=== PATIENT | male | born 1940 | race Caucasian/White ===

== ENCOUNTER → 2019-03-11 17:03 | Outpatient (CLI) | payer MEDICARE, OTHER, SELFPAY ==
--- NOTE | 2019-03-11 17:16 | XR_ITS ---
EXAM: XR thoracic spine 3V HISTORY: Back pain ITS.REASON: BACK PAIN Comparison: 01/06/2008 FINDINGS: Normal alignment. There is mild degenerative disc disease in the lower thoracic spine with small anterior osteophytes. There is degenerative disc disease in cervical spine at C4-C5. There is question of wedge compression changes of the T2. This however is not L demonstrated obscured from the overlying scapula and ribs. IMPRESSION: Questionable wedge compression changes of T2. CT or MRI may confirm Degenerative changes lower thoracic spine and cervical spine
--- NOTE | 2019-03-11 17:16 | XR_ITS ---
EXAM: XR lumbar spine min 4V HISTORY: Low back pain ITS.REASON: BACK PAIN ORDERING PHYSICIAN: Israel Perry MD PATIENT AGE: 79 years COMPARISON: None FINDINGS: Normal alignment. No fracture or dislocation. No lytic or blastic change. There is degenerative disc disease at L3-L4. Mild facet arthritic changes are present at L4-L5 and L5-S1. There is calcification and tortuosity of the abdominal aorta with mild dilatation of lower abdominal aorta. IMPRESSION: Degenerative changes lumbar spine with degenerative disc disease at L3-L4 and facet arthritic change
== END ==
PROVIDERS: PCP Family Medicine; Visit Provider Family Medicine
DX: M54.5 Low back pain (principal); M54.6 Pain in thoracic spine
CPT/HCPCS: 72072; 72110

== ENCOUNTER 2019-04-03 09:00 | Outpatient (RCR) | payer MEDICARE, OTHER, SELFPAY ==
--- NOTE | 2019-03-20 11:42 | HMH.PTOPEV ---
PT Outpatient Evaluation Rehab PT Outpatient Evaluation Start: 03/20/19 09:57 Freq: Status: Active Protocol: Document 03/20/19 10:59 PDESEROUX (Rec: 03/20/19 11:41 [email or web address] [id number]) Electronically Signed By Jake Linder, PT 03/20/19 10:59 Outpatient Therapy Subjective History Subjective History Pt. is a 79 year old male who presents to outpatient PT for complaints of chronic thoracic/lumbar pain of insidious onset since 2017 that has progressively gotten worse. Pt . denies BLE pain, but does report a giving out symptom in each leg while walking. Recent diagnostic imaging positive for thoracic/lumbar DDD and a questionable wedge compression at T2. Pt. denies having any injections for current pathology. PMH includes open heart surgery in 1999, cardiac angioplasty, and HTN. Current medications include Atenolol, Isosorbide, Pravastatin, Hydrochlorot, Clopidogrel, Lisinopril, and Aspirin. Chief Complaint Pain,Gives out/Unstable Symptom Type Other Symptoms Relieved By Rest/Positioning Symptoms Aggravated By Standing,Bending/Stooping, Physical Activity,Twisting, Walking,Lifting Prior Functional Limitations None Current Functional Limitations Lifting,Housework,Dressing, Driving,Standing,Sitting, Squatting,Recreation Activity, Walking,Stairs,Balance,Bending /Stooping Symptom Description Constant and Continuous Level of pain today (0-10) 10 Pain scale - at its best (0-10) 2 Pain scale - at its worst (0-10) 10 Lumbopelvic Eval Posture Thoracic Spine Posture Standing Position Increased Kyphosis Lumbar Spine Posture Standing Position Flattened Assistive device Assistive Devices None / NA Gait Observation General Gait Pattern Observation Antalgic Gait,Wide Based Gait Palapation tenderness bilateral thoracic spinal tenderness Yes lumbar spinal tenderness Yes paraspinal tenderness Yes buttock tenderness Yes Lumbar/Sacral Palpation Findings
== END 2019-04-29 09:35 | disposition home or self-care (01) ==
LOC: PT.CARL 09:00
PROVIDERS: Visit Provider Family Medicine
DX: M54.5 Low back pain (principal)
CPT/HCPCS: 97014; 97035; 97110; 97163; G0283

== ENCOUNTER → 2020-06-08 15:24 | Outpatient (CLI) | payer MEDICARE, OTHER, SELFPAY ==
--- NOTE | 2020-06-08 15:48 | ECG_ITS ---
APPROVED REPORT Exam: Resting ECG HR:52 bpm ECG Measurements Heart Rate 52 AXES HI 170 P 35 QRSd 74 QRS 49 QT 456 T -63 QTc 424 <Conclusion> Sinus bradycardia ST & T wave abnormality, consider inferior ischemia Abnormal ECG Electronically signed by : Magdaleno Diehl, 06/13/2020 21:23:03
[2020-06-08 19:13] LABS: Anion Gap 13.3 mEq/L (5-15); Blood Urea Nitrogen 24 mg/dl (9-20); Calcium 9.3 mg/dl (8.4-10.2); Carbon Dioxide 26 mmol/L (22.0-30.0); Chloride 101 mmol/L (98-107); Estimated Glomerular Filt Rate 45 ml/min (>60); GFR (African American) 54 ML/MIN (>60); Glucose 85 mg/dl (74-100); Potassium 5.3 mmoL/L (3.5-5.1); Sodium 135 mmol/L (136-145)
[2020-06-08 21:47] LABS: Coronavirus 19 IgG Antibody Negative (Negative); Coronavirus 19 IgM Antibody Negative (Negative)
== END ==
PROVIDERS: Visit Provider Otolaryngology
DX: Z01.818 Encounter for other preprocedural examination (principal); L98.9 Disorder of the skin and subcutaneous tissue, unspecified
CPT/HCPCS: 36415; 80048; 86328; 93005

== ENCOUNTER 2020-06-10 08:15 | Day surgery (SDC) | payer MEDICARE, OTHER, SELFPAY ==
[2020-06-09 14:32] VITALS: BMI 25.4
[2020-06-10 08:34] VITALS: BP 141/69; PULSE 94; RESP 18; TEMP 36.1; O2SAT 100
--- NOTE | 2020-06-10 09:43 | P.PN_ITS ---
[facility] Anesthesia Checklist - Structural Data Admitted From: Home Planned Operative Procedure/s: excision neoplasm l congregation Consent for Planned Operative Procedure(s) Verified: Yes - Additional verifications Anesthesia Reactions: No Hx Blood Transfusions: No Blood Transfusion Reaction: No - Airway Assessment C-Spine Mobility Assessed: Yes TMJ Mobility Assessed: Yes Dentition: Good Dentition - Neurological Assessment Level of Consciousness: Awake, Alert, Appropriate - Anesthesia Plan Anesthesia Risk discussed: Yes Anesthesia Plan: Verified ASA Class: III Anesthesia Type: MAC [facility] History I have reviewed the patient's past medical history: Yes Medical History: Denies:: Cancer, Diabetes Mellitus Type 1, Diabetes Mellitus Type 2, Internal Pacemaker, MRSA, Seizures *Have you ever received a pneumonia vaccine?: No *Have you received a flu vaccine this season?: No Other Medical History: Denies: Blood Transfusion Reaction Anesthesia experience/problems:: none Other Surgeries: Yes: Open Heart Surgery. No: Pacemaker Amputation: No Fractures: No - *Social History Last grade of school completed: 11th or 12th Smoking Status: Current every day smoker Tobacco Type: cigarettes # Packs/Day (cigarettes): 1 Alcohol Intake: current Alcohol Intake Frequency:: a few times a week Substance Use Type: denies use *Occupational Status:: employed Housing: house Household Members: spouse *Travel in the last 8 weeks: None Family Hx:: No significant family history
[2020-06-10 10:00] VITALS: BP 137/63; PULSE 60; RESP 20; TEMP 36.5; O2SAT 96
[2020-06-10 10:15] VITALS: BP 132/65; PULSE 56; RESP 20; TEMP 36.5; O2SAT 97
[2020-06-10 10:30] VITALS: BP 132/66; PULSE 55; RESP 20; TEMP 36.5; O2SAT 96
[2020-06-10 10:35] VITALS: BP 130/81; PULSE 58; RESP 20; TEMP 36.5; O2SAT 95
--- NOTE | 2020-06-10 13:01 | HMH.OPNOTE ---
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 Bleeding was stopped with bipolar cautery blood loss was less than 10 cc. Superior and inferior incisions were made and a tissue rearrangement geometric plastic repair was done with interrupted 4-0 nylon sutures a Dermabond dressing was applied. Patient tolerated the procedure well and was sent to recovery in good general condition. Condition: stable Disposition: PACU Complications:: None
== END 2020-06-10 10:35 | disposition home or self-care (01) ==
LOC: OR 08:17
PROVIDERS: PCP Family Medicine; Visit Provider Otolaryngology
PROC: (CPT 14040; principal; 2020-06-10 10:00)
DX: C44.329 Squamous cell carcinoma of skin of other parts of face; I51.9 Heart disease, unspecified; Z95.818 Presence of other cardiac implants and grafts; Z72.0 Tobacco use; Z79.82 Long term (current) use of aspirin; Z79.899 Other long term (current) drug therapy
CPT/HCPCS: 14040; 88305; 96374

== ENCOUNTER → 2022-01-10 08:02 | Outpatient (CLI) | payer MEDICARE, OTHER, SELFPAY ==
[2022-01-10 13:36] LABS: Chloride 99 mmol/L (98-107); Sodium 132 mmol/L (136-145)
[2022-01-10 13:39] LABS: Blood Urea Nitrogen 35 mg/dl (9-20); Carbon Dioxide 26 mmol/L (22.0-30.0); Cholesterol 106 mg/dl (140-200); Estimated Glomerular Filt Rate 39 ml/min (>60); GFR (African American) 47 ML/MIN (>60); Triglycerides 73 mg/dl (30-150); VLDL Cholesterol 15 mg/dL (0-40)
[2022-01-10 13:40] LABS: Calcium 8.4 mg/dl (8.4-10.2); Chol/HDL Ratio 2.5 (1-3.5); Glucose 90 mg/dl (74-100); HDL Cholesterol 42 mg/dl (40-60)
[2022-01-10 13:51] LABS: Direct LDL Cholesterol 46.43 mg/dL (100-129)
== END ==
PROVIDERS: Visit Provider Internal Medicine Cardiovascular Disease
DX: R06.00 Dyspnea, unspecified (principal); I25.10 Atherosclerotic heart disease of native coronary artery without angina pectoris; E78.5 Hyperlipidemia, unspecified
CPT/HCPCS: 36415; 80048; 80061

== ENCOUNTER → 2022-06-07 10:05 | Outpatient (CLI) | payer MEDICARE, OTHER, SELFPAY ==
--- NOTE | 2022-06-07 10:11 | XR_ITS ---
PROCEDURE INFORMATION: Exam: XR Right Shoulder Exam date and time: 06/07/2022 10:29 AM Age: 82 years old Clinical indication: Pain; Shoulder; Right; Additional info: RT shoulder osteoarthritis TECHNIQUE: Imaging protocol: Radiologic exam of the Right shoulder. Views: 2 or more views. COMPARISON: CR CXR2 CHEST-AP VIEW ONLY 07/06/2016 11:23 PM FINDINGS: Bones/joints: Osteophytosis and eburnation of the acromioclavicular and glenohumeral articulating surfaces. Prior median sternotomy wires. Carotid endarterectomy clips. Cardiac valvular device. Degenerative spondylosis of the spine with facet arthropathy and uncovertebral hypertrophy. Pleural space: No evidence of pneumothorax. Soft tissues: Dystrophic calcification in the right axilla measures less than 1 cm. IMPRESSION: 1. No acute fracture is identified. 2. Osteoarthritis. 3. Atherosclerotic vascular disease. 4. Degenerative disc disease.
== END ==
PROVIDERS: PCP Family Medicine; Visit Provider Family Medicine
DX: M19.011 Primary osteoarthritis, right shoulder (principal)
CPT/HCPCS: 73030

== ENCOUNTER → 2023-01-07 08:21 | Outpatient (CLI) | payer MEDICARE, SELFPAY ==
[2023-01-07 08:58] LABS: Chloride 107 mmol/L (98-107); Sodium 138 mmol/L (136-145)
[2023-01-07 08:59] LABS: Potassium 5.1 mmoL/L (3.5-5.1)
[2023-01-07 09:01] LABS: Blood Urea Nitrogen 26 mg/dl (9-20); Estimated Glomerular Filt Rate 58 ml/min (>60); GFR (African American) 70 ML/MIN (>60)
[2023-01-07 09:02] LABS: Anion Gap 9.1 mEq/L (5-15); Calcium 8.6 mg/dl (8.4-10.2); Carbon Dioxide 27 mmol/L (22.0-30.0); Chol/HDL Ratio 2.4 (1-3.5); Cholesterol 90 mg/dl (140-200); Glucose 107 mg/dl (74-100); HDL Cholesterol 38 mg/dl (40-60); Triglycerides 102 mg/dl (30-150); VLDL Cholesterol 20 mg/dL (0-40)
[2023-01-07 09:13] LABS: Direct LDL Cholesterol 39.46 mg/dL (100-129)
== END ==
PROVIDERS: PCP Internal Medicine Cardiovascular Disease; Visit Provider Internal Medicine Cardiovascular Disease
DX: I25.10 Atherosclerotic heart disease of native coronary artery without angina pectoris (principal)
CPT/HCPCS: 36415; 80048; 80061

== ENCOUNTER 2023-08-24 19:40 | Emergency (ER) | payer MEDICARE, SELFPAY ==
[2023-08-24] VITALS (7 sets, daily range): BP systolic 158–177; BP diastolic 76–102; PULSE 66–88; RESP 18–20; TEMP 36.3–36.8; O2SAT 96–98; BMI 23.6
--- NOTE | 2023-08-24 20:09 | HMH.EDGENADL ---
Discharge Plan Disposition Patient Disposition: Home, Self-Care Prescriptions Prescriptions: New cephalexin 500 mg capsule 1,000 mg PO BID 7 Days Qty: 28 0RF No Action isosorbide dinitrate 10 MG tablet 10 mg PO DAILY aspirin 325 MG tablet 325 mg PO DAILY atenolol 25 MG tablet 25 mg PO DAILY clopidogrel 75 MG tablet 75 mg PO DAILY pravastatin 80 MG tablet 80 mg PO HS lisinopril 10 MG tablet 10 mg PO DAILY Referrals Follow up/Referrals: Israel Perry MD [Primary Care Provider] - See instructions Activity Restrictions/Add. Instructions Additional Instructions/Restrictions: Antibiotic twice daily for 7 days. Call your family doctor to establish care for this visit to the emergency department and schedule follow-up within 48 hours to ensure improvement. If you have any worsening of your condition or any other concerning signs or symptoms, return to the emergency department or your primary care doctor for further evaluation. Clinical Impressions Clinical Impression: Cellulitis of left leg Discharge ED Provider: Brice Díaz General Adult HPI General Chief complaint: PAIN Stated complaint: left leg sore, swollen and hot to the touch Time Seen by Provider: 08/24/23 19:47 Mode of Arrival: Ambulatory Source of Information: Patient Limitations: No Limitations Description of Symptoms (Recalled from ER Triage Doc. by RN): Pain in lower left back that radiated to left leg been hurting for the last month, then 2 weeks ago noticed a small reddened area to left medial upper leg, painful to touch, has not been to PCP. History of Present Illness HPI narrative: 83-year-old male with significant vascular history including multiple heart attacks status post stenting, CABG, carotid artery thrombosis causing CVA currently on aspirin and Plavix, hypertension, hyperlipidemia presenting with left leg swelling. Patient states that he noticed swelling and pain in the medial aspect of his left thigh 2 to 3 months prior to arrival. Since that time, it has not changed much. It is painful, erythematous, not going away. Has not seen his family doctor because it was inconvenient and he works daily. Has not had fevers, chills, nausea, vomiting or any other systemic signs or symptoms. Related Data Home Medications Medication Instructions Recorded Confirmed aspirin 325 mg tablet 325 mg PO DAILY Blood thinner 06/09/20 08/24/23 atenolol 25 mg tablet 25 mg PO DAILY High blood pressure 06/09/20 08/24/23 clopidogrel 75 mg tablet 75 mg PO DAILY Blood thinner 06/09/20 08/24/23 isosorbide dinitrate 10 mg tablet 10 mg PO DAILY High blood pressure 06/09/20 08/24/23 lisinopril 10 mg tablet 10 mg PO DAILY High blood pressure 06/09/20 08/24/23 pravastatin 80 mg tablet 80 mg PO HS Cholesterol 06/09/20 08/24/23 Previous Rx's Medication Instructions Recorded cephalexin 500 mg capsule 1,000 mg PO BID 7 days #28 caps 08/24/23 Allergies Allergy/AdvReac Type Severity Reaction Status Date / Time No Known Allergies Allergy Verified 09/27/20 14:07 [facility] Disclaimer: The information contained in this section may have been updated after the patient was seen, as this information can be updated by other users. Social History Smoking Status: Never smoker alcohol intake: never substance use type: denies use current occupational status: retired Travel in the last 8 weeks: None household members: spouse housing: house 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fill current occupational exposures/hazards: No caffeine: Yes ROS Obtained: Yes All systems reviewed & no additional complaints except as documented Physical Exam General General appearance: alert and in no apparent distress Head Head exam: atraumatic and normocephalic Eye Eye exam: Present normal appearance, PERRL and EOMI ENT ENT exam: Present mucous membranes moist Neck Neck exam: Present normal inspection, full ROM a
--- NOTE | 2023-08-24 20:09 | PC.NURSE ---
in room talking with patient at this time.
[2023-08-24 20:31] LABS: Basophils # 0.1 K/mm3 (0-0.2); Basophils % 0.6 % (0.1-2.0); Eosinophils # 0.3 K/mm3 (0.0-0.4); Eosinophils % 3.8 % (0.1-12.0); Hematocrit 38.4 % (42.0-52.0); Hemoglobin 13.1 g/dL (14.1-18.0); Lymphocytes # 2.4 K/mm3 (0.7-4.5); Lymphocytes % 27.2 % (10-50); Mean Corpuscular HGB Conc 34.1 g/dL (31.8-35.4); Mean Corpuscular Hemoglobin 34.6 pg (27.0-31.2); Mean Corpuscular Volume 101.4 fl (80-94); Mean Platelet Volume 9.6 fl (7.4-10.4); Monocytes # 0.7 K/mm3 (0.1-1.0); Monocytes % 7.8 % (1.7-9.3); Neutrophils # 5.4 K/mm3 (1.8-7.8); Neutrophils % 60.6 % (37.0-80.0); Platelet Count 189 K/mm3 (142-424); Red Blood Count 3.79 M/mm3 (4.60-6.20); Red Cell Distribution Width 13.7 % (11.5-17.5); White Blood Count 8.9 K/mm3 (4.8-10.8)
--- NOTE | 2023-08-24 20:31 | PC.NURSE ---
in room talking with patient at this time.
[2023-08-24 20:40] LABS: C-Reactive Protein 0.6 mg/L (0-4)
[2023-08-24 20:41] LABS: D-Dimer 2.51 ug/mL (0.0-0.5)
== END 2023-08-24 21:02 | disposition home or self-care (01) ==
PROVIDERS: Emergency Provider Emergency Medicine; PCP Family Medicine
DX: L03.116 Cellulitis of left lower limb (principal); I10 Essential (primary) hypertension; E78.5 Hyperlipidemia, unspecified; Z86.73 Personal history of transient ischemic attack (TIA), and cerebral infarction without residual deficits; Z86.79 Personal history of other diseases of the circulatory system; Z95.1 Presence of aortocoronary bypass graft; Z79.01 Long term (current) use of anticoagulants
CPT/HCPCS: 85025; 85378; 86140; 99283

== ENCOUNTER → 2023-08-29 11:23 | Outpatient (CLI) | payer MEDICARE, SELFPAY ==
--- NOTE | 2023-08-29 11:24 | ECG_ITS ---
APPROVED REPORT Exam: Resting ECG HR:56 bpm ECG Measurements Heart Rate 56 AXES QRSd 105 QRS 43 QT 442 T -76 QTc 434 Conclusion SUPRAVENTRICULAR BRADYCARDIA MODERATE T-WAVE ABNORMALITY, CONSIDER ANTEROLATERAL ISCHEMIA [-0.1+ mV T-WAVE IN V3-V6] ABNORMAL ECG UNCONFIRMED REPORT Electronically signed by : Magdaleno Diehl MD 08/30/2023 10:09:57
== END ==
PROVIDERS: PCP Family Medicine; Visit Provider Surgery
DX: K57.32 Diverticulitis of large intestine without perforation or abscess without bleeding (principal)
CPT/HCPCS: 93005

== ENCOUNTER 2023-08-30 09:49 | Day surgery (SDC) | payer MEDICARE, SELFPAY ==
[2023-08-30] VITALS (9 sets, daily range): BP systolic 99–135; BP diastolic 46–75; PULSE 59–66; RESP 14–18; TEMP 36.3–36.7; O2SAT 93–98; BMI 25.5
--- NOTE | 2023-08-30 10:44 | P.PNANES_ITS ---
[facility] Disclaimer: The information contained in this section may have been updated after the patient was seen, as this information can be updated by other users. Medical History History of heart attack History of stroke Hyperlipidemia Hypertension Hypertension Surgical History History of open heart surgery History of surgery on lower extremity Family History Other Family history of myocardial infarction Social History Smoking Status: Never smoker alcohol intake: current substance use type: denies use current occupational status: employed and retired Travel in the last 8 weeks: None household members: spouse housing: house 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fill current occupational exposures/hazards: No caffeine: Yes [facility] Anesthesia Checklist Patient Identification Patient Identification: Arm Band and Verbal (Name & ) Structural Data Admitted From: Home Planned Operative Procedure/s: Excision lesion leg Consent for Planned Operative Procedure(s) Verified: Yes NPO Status Verified Time NPO: 00:00 Chart Verification Results Verified: CBC, BMP and ECG Additional verifications Anesthesia Reactions: No Hx Blood Transfusions: No Blood Transfusion Reaction: No Airway Assessment Mallampati Score:: Class III C-Spine Mobility Assessed: Yes TMJ Mobility Assessed: Yes Dentition: Edentulous Neurological Assessment Level of Consciousness: Awake Hx Seizures: No Numbness or tingling in extremities: No Anesthesia Plan Anesthesia Risk discussed: Yes Anesthesia Plan: Verified ASA Class: III Anesthesia Type: General
--- NOTE | 2023-08-30 10:48 | SUR.PREOP ---
per dr. lipscomb he is ok with patient taking plavix yesterday.
[2023-08-30 11:01] LABS: Chloride 102 mmol/L (98-107); Sodium 134 mmol/L (136-145)
[2023-08-30 11:36] LABS: Potassium 4.8 mmoL/L (3.5-5.1)
[2023-08-30 11:39] LABS: Alanine Aminotransferase 26 U/L (12-78); Aspartate Amino Transferase 34 U/L (17-59); Blood Urea Nitrogen 29 mg/dl (9-20); Creatinine Clearance Estimated 52 mL/min (50-200); Estimated Glomerular Filt Rate 58 ml/min (>60); GFR (African American) 70 ML/MIN (>60)
[2023-08-30 11:40] LABS: Albumin Level 3.7 g/dl (3.5-5.0); Albumin/Globulin Ratio 1.2 (1.1-1.8); Alkaline Phosphatase 140 U/L (38-126); Anion Gap 9.8 mEq/L (5-15); Bilirubin,Total 0.3 mg/dl (0.2-1.3); Calcium 8.5 mg/dl (8.4-10.2); Carbon Dioxide 27 mmol/L (22.0-30.0); Globulin 3.2 g/dL (1.3-3.2); Glucose 97 mg/dl (74-100); Total Protein,Serum 6.9 g/dl (6.3-8.2)
--- NOTE | 2023-08-30 12:20 | P.OP_ITS ---
Date of procedure: 08/30/23 Pre-op Diagnosis:: Left lower extremity abscess Post-op Diagnosis:: Left lower extremity abscess versus soft tissue mass/neoplasm Procedure performed:: Incision and drainage of focal left lower extremity abscess Incisional biopsy of left lower extremity mass Surgeon:: Branden Martins MD ARTIST MANNEQUIN COLORING:: Patt Lebron Anesthesia: LMA Estimated blood loss (mL): 10 Operative findings:: Firm indurated tissue with overlying cellulitis consistent with abscess Minimal inflammatory fluid with no purulent pocket Soft tissue firmness consistent with mass-like effect (possible neoplasm) Operative note:: After informed consent was obtained the patient was taken to the operating room and placed in the supine position. General anesthesia with laryngeal mask airway was achieved. His left lower extremity was prepped and draped in a sterile fashion. After infiltration local anesthetic an incision was made around the central portion of the palpable lesion. Minimal fluid was noted (Gram stain/culture was obtained). 8 firm somewhat indurated and mass-like nodularity was noted. The core of tissue was excised with electrocautery and passed off for pathologic evaluation. The wound was packed open with gauze and dressings were applied. Condition: stable Disposition: PACU Specimens:: Fluid for Gram stain/culture Left lower extremity mass (incisional biopsy) Complications:: No immediate
--- NOTE | 2023-08-30 12:28 | EXP.ANES.I ---
[facility] Anesthesia Record Part I Anesthesia Record I Intake, IV Amount: 200 Hydration: Adequate Estimated blood loss (mL): 10 Urine output (mL): 0 Blood Pressure: 99/50 SaO2: 94 Pulse Rate: 60 Airway Patency: Patent Respiratory Rate: 14 Temperature: 97.3 F Patient is:: Drowsy and Oral/Nasal airway Stable to PACU at:: 12:24
--- NOTE | 2023-08-31 20:09 | P.PNANES_ITS ---
[facility] Anesthesia Record Part II Anesthesia Record Part II Discharge Time: 12:54 Destination: Surgical Day Care (OP Surgery) PACU nurse assessment reviewed?: Yes Patient Condition:: Good Anesthesia Complications:: None Swallowing reflex intact?: Yes Airway Patency: Patent Cyanosis?: No Blood Pressure: 132/75 SaO2: 96 Respiratory Rate: 18 Pulse Rate: 66 Temperature: 97.9 F Mental Status: Alert & Oriented Pain level:: 0 Nausea and/or vomitting:: None Intake, IV Amount: 0 Hydration: Adequate
[2023-08-31 20:10] VITALS: BP 132/75; PULSE 66; RESP 18; TEMP 36.6; O2SAT 96
== END 2023-08-30 13:40 | disposition home or self-care (01) ==
PROVIDERS: Anesthesiology; PCP Family Medicine; Visit Provider Surgery
PROC: (CPT 10061; principal; 2023-08-30 11:15)
DX: L02.416 Cutaneous abscess of left lower limb (principal)
CPT/HCPCS: 10061; 80053; 87070; 87075; 87205; 88305; 96374; J2405

== ENCOUNTER 2024-02-07 12:39 | Outpatient (CLI) | payer MEDICARE, SELFPAY ==
--- NOTE | 2024-02-07 12:42 | CA_ITS ---
FINAL REPORT TECHNIQUE: Real-time imaging was performed of the extracranial carotid arteries in transverse and longitudinal planes, with color duplex evaluation of blood flow velocity. Spectral analysis was performed. The cervical vertebral arteries were also examined. CLINICAL HISTORY: JAROD,RT ENDADECTOMY,HX LT ICA OCCLUISON,HTN,CVA,CAD COMPARISON: None available FINDINGS: NASCET technique is utilized for stenosis evaluation. Right carotid system (centimeters/second): CCA: 74 ICA: 94 ECA: 79 Vertebral artery: Antegrade ICA/CCA ratio: 1.3 Mild plaque is identified at the bifurcation. Left carotid system (centimeters/second): The left internal carotid artery is known to be occluded. 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 0-29% right ICA stenosis. Antegrade flow bilateral vertebral arteries. Reviewed, Interpreted and Dictated by Marcus Quiroz MD Transcribed by Jessy Ingram Authenticated and [facility]
--- NOTE | 2024-02-07 12:42 | CA_ITS ---
APPROVED REPORT EXAM: Comprehensive 2D, Doppler, and color-flow Echocardiogram Associate Team Physician: Tish Alexandre RVT Ht: 5 ft 9 in Wt: 163lbs BSA: 1.89 BP: 118/52 mmHg Indications: CAD,CABG,HTN,HX CVA,HTN 2D Dimensions LA Volume 65.40 mL LA Volume Index 34.42 mL/m2 (M/F) 16-34 M-Mode Dimensions RVDd 2.72 cm (0.9-2.6) LA Diam 5.43 cm (1.9-4.0) LVDd 6.80 cm (3.5-5.7) LVDs 5.49 cm (3.5-5.7) IVSd 0.43 cm (0.6-1.1) PWd 0.85 cm (0.6-1.1) EF (Teich) 38.60% FS 19.30% EDV (Teich) 239.20 mL TAPSE 1.79 (<1.7) ESV (Teich) 146.80 mL LV Diastology E Decel Time 207 (160-240 msec) E/A Ratio 1.5 Aortic Valve MARVA Index 1.18 cm2/m2 AoV Peak Yoni. 115.0 (50-130 cm/s) AI PHT 1252.00 ms AO Peak GR. 5.30 mmHg AO Mean GR. 3.10 (<5 mmHg) AO VTI 26.5 (18-25 cm) MARVA (VTI) 2.28 (2.5-4.5 cm2) Mitral Valve MV E Max Yoni. 73.0 (40-130 cm/s) MV A Velocity 48.0 (40-130 cm/s) E/A Ratio 1.52 MV PHT 61.0 ms Pulmonary Valve PV Peak Velocity 37.0 (50-150 cm/s) Tricuspid Valve TR P. Velocity 381.00 cm/s RAP Estimate 10.00 mmHg RVSP 68.10 mmHg Left Ventricle The left ventricle is normal size. The left ventricular systolic function is normal. The left ventricular ejection fraction is within the normal range. Proximal septal thickening is noted. There is normal LV segmental wall motion. Transmitral Doppler flow pattern suggests impaired LV relaxation. LVEF is 55% Right Ventricle The right ventricle is mildly dilated. The right ventricular systolic function is normal. Atria Left atrium is moderately dilated. The right atrium is mildly dilated. There is no Doppler evidence of interatrial shunt. Aortic Valve The aortic valve is mildly thickened. There is no aortic valvular stenosis. Moderate aortic regurgitation. Mitral Valve The mitral valve leaflets are mildly thickened. No evidence of mitral valve stenosis. Mild to moderate mitral regurgitation. Tricuspid Valve The tricuspid valve leaflets are thin and pliable. Moderate tricuspid regurgitation. RVSP 55-60 mmHg. Pulmonic Valve The pulmonary valve is normal in structure. Mild pulmonic regurgitation. Great Vessels The aortic root is normal in size. The ascending aorta is not well-visualized. IVC is normal in size and collapses >50% with inspiration. Pericardium There is no pericardial effusion. Other Information Study Quality: Fair Conclusion Normal biventricular systolic function. Mild RV dilation. Biatrial dilation. Moderate AI. Mild MR. Moderate TR. Elevated RVSP 55-60 mmHg. Electronically signed by : Funmi Botello MD 02/07/2024 15:18:58
== END 2024-02-07 23:59 ==
LOC: RT 12:39
PROVIDERS: PCP Family Medicine; Visit Provider Nurse Practitioner Family
DX: I11.9 Hypertensive heart disease without heart failure (principal); I25.10 Atherosclerotic heart disease of native coronary artery without angina pectoris; Z86.73 Personal history of transient ischemic attack (TIA), and cerebral infarction without residual deficits; I25.2 Old myocardial infarction; E78.5 Hyperlipidemia, unspecified; Z95.5 Presence of coronary angioplasty implant and graft; R94.31 Abnormal electrocardiogram [ECG] [EKG]; I65.29 Occlusion and stenosis of unspecified carotid artery; Z98.890 Other specified postprocedural states; Z95.1 Presence of aortocoronary bypass graft
CPT/HCPCS: 93306; 93880

== ENCOUNTER 2024-03-02 16:56 | Emergency (ER) | payer MEDICARE, OTHER, SELFPAY ==
[2024-03-02 16:58] VITALS: BP 137/70; PULSE 65; RESP 20; TEMP 36.7; O2SAT 96; BMI 22.1
[2024-03-02 17:05] VITALS: BP 137/70; PULSE 55; O2SAT 100
--- NOTE | 2024-03-02 17:23 | ED_ITS ---
<Statement entered by Newton Poole MD - 03/03/24 00:39> I was consulted by the ERIC, and we discussed the complexity of the problems being addressed. I approved the treatment and management plan for this patient's care in the emergency department, thus performing a substantive portion of the medical decision making. Newton Poole MD Discharge Plan Disposition Patient Disposition: Home, Self-Care Condition: Good Prescriptions Prescriptions: New lidocaine 5 % adhesive patch,medicated 1 patch topical DAILY Qty: 30 0RF Rx Instructions: leave on most painful area for up to 12 hrs methocarbamol 750 mg tablet 750 mg PO QID PRN (Reason: muscle spasm) Qty: 120 0RF No Action aspirin [Adult Low Dose Aspirin] 81 mg tablet,delayed release (DR/EC) 81 mg PO DAILY Qty: 30 5RF tramadol 50 mg tablet 50 mg PO NEEDED PRN (Reason: Pain) nitroglycerin 0.4 mg tablet, sublingual 0.4 mg sublingual NEEDED PRN (Reason: Pain) isosorbide dinitrate 10 MG tablet 10 mg PO DAILY atenolol 25 MG tablet 25 mg PO DAILY clopidogrel 75 MG tablet 75 mg PO DAILY pravastatin 80 MG tablet 80 mg PO HS lisinopril 10 MG tablet 10 mg PO DAILY Referrals Follow up/Referrals: Israel Perry MD [Primary Care Provider] - See instructions Activity Restrictions/Add. Instructions Additional Instructions/Restrictions: Please have Dr. Perry refer you to Dr. Alejandra. I called in prescriptions to your pharmacy. Please return to the emergency department as needed for any worsening signs or symptoms including numbness loss of bowel or bladder function loss ability to walk or loss of sensation as needed. Clinical Impressions Clinical Impression: Low back pain Discharge ED Provider: Newton Poole General Adult HPI General Chief complaint: Extremity Injury, Lower Stated complaint: AO04/ frequent fall, back leg pain Time Seen by Provider: 03/02/24 17:22 Mode of Arrival: Wheelchair Source of Information: Patient and Relative Limitations: previous stroke Description of Symptoms (Recalled from ER Triage Doc. by RN): pt has fallen several times recently and complaining of BLE pain from low back to toes and family is concerned for a broke hip History of Present Illness HPI narrative: Patient presents for evaluation of right lower extremity pain. Patient had a fall onto [place] in December. He slipped on icy ground landing on his knees. He did not seek care at that time. Over the last 2-1/2 months he has been having increasing bilateral right greater than left paresthesias. He is reports that the pain radiates from his low back down to his big toe primarily on the right. It also radiates but not as far on the left side. Patient has no loss of bowel or bladder function and currently is neurovascularly intact distally at the time of my exam. Patient is any new injury or change in the last 24 hours he just states that the pain is gotten too intense for him to bear. Related Data Home Medications Medication Instructions Recorded Confirmed atenolol 25 mg tablet 25 mg PO DAILY High blood pressure 06/09/20 01/22/24 clopidogrel 75 mg tablet 75 mg PO DAILY Blood thinner 06/09/20 01/22/24 isosorbide dinitrate 10 mg tablet 10 mg PO DAILY High blood pressure 06/09/20 01/22/24 lisinopril 10 mg tablet 10 mg PO DAILY High blood pressure 06/09/20 01/22/24 pravastatin 80 mg tablet 80 mg PO HS Cholesterol 06/09/20 01/22/24 nitroglycerin 0.4 mg sublingual 0.4 mg sublingual NEEDED PRN 08/29/23 01/22/24 tablet Pain tramadol 50 mg tablet 50 mg PO NEEDED PRN Pain 08/29/23 01/22/24 Previous Rx's Medication Instructions Recorded aspirin 81 mg tablet,delayed 81 mg PO DAILY #30 tabs 01/22/24 release (Adult Low Dose Aspirin) lidocaine 5 % topical patch 1 patch topical DAILY #30 ea 03/02/24 methocarbamol 750 mg tablet 750 mg PO QID PRN muscle spasm 03/02/24 #120 tabs Allergies Allergy/AdvReac Type Severity Reaction Status Date / Time No Known Allergies Allergy Verified 01/22/24 13:15 [facility] Disclaimer: The information contained in this section may have been updated after the patient was seen, as this information can be updated by other users. Medical History (Updated 03/02/24 @ 20:03 by MANOJ Whitfield) Abnormal electrocardiogram [ECG] [EKG] Stenosis of carotid artery Coronary artery disease History of heart attack History of stroke Hyperlipidemia Hypertension Hypertension Surgical History (Updated 01/22/24 @ 13:57 by Gretel Nathan RN) History of coronary artery bypass graft History of right-sided carotid endarterectomy History of coronary artery stent placement History of incision and drainage History of surgery on lower extremity History of open heart surgery Family History Other Family history of myocardial infarction Social History Smoking Status: Current every day smoker tobacco type: cigarettes packs per day: 1 alcohol intake: current substance use type: denies use current occupational status: employed and retired Travel in the last 8 weeks: None household members: spouse housing: house 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[employer] current occupational exposures/hazards: No caffeine: Yes ROS Obtained: Yes Systems reviewed as appropriate & no additional complaints except as documented Physical Exam General General appearance: alert and in no apparent distress Head Head exam: atraumatic and normal inspection Eye Eye exam: Present normal appearance, PERRL and EOMI ENT ENT exam: Present normal exam, normal oropharynx and mucous membranes moist Neck Neck exam: Present normal inspection and full ROM Chest Chest inspection: Present normal inspection and symmetric chest wall rise Respiratory Respiratory exam: Present normal lung sounds bilaterally Cardiovascular Cardiovascular exam: Present regular rate and normal rhythm Abdominal Exam Abdominal exam: Present soft and normal bowel sounds; Absent tenderness Extremities Exam Extremities exam: Present normal inspection Back Exam Back exam: Present normal inspection Neurological Exam Neurological exam: Present alert, oriented X3 and CN II-XII intact Psychiatric Psychiatric exam: Present normal affect and normal mood Skin Skin exam: Present warm, dry and normal color Other Other exam information: The bilateral upper extremities are intact grossly to exam with full range of motion and neurovascular intact distally. Bilateral lower extremities have decreased range of motion secondary to pain in the lumbar spine area. However he is motor and sensory intact distally. He has no muscle weakness. Dorsiflexion plantarflexion increases his pain right greater than left in the lumbar paraspinous muscles. Palpation of the lumbar spine is nontender in the midline however it is tender in the lumbar paraspinous muscles. No deformities noted on bony palpation of the dorsal spine. Medical Decision Making Medical Records Medical records reviewed: Yes I reviewed the patient's medical records. Janusz Inquiry Pt receiving controlled substance: No Vital Signs: 03/02/24 16:58 03/02/24 17:05 03/02/24 17:30 Temperature 98.0 F Temperature Source Oral Pulse Rate 55 L 63 Pulse Rate [Right Radial] 65 Respiratory Rate 20 Blood Pressure 137/70 127/81 Blood Pressure [Right Arm] 137/70 Blood Pressure Mean [Right Arm] 92 02 Sat by Pulse Oximetry 96 100 95 Oxygen Delivery Method Room Air Room Air Room Air Lab Data Lab results reviewed: Yes I reviewed the patient's lab results. Orders (Tests/Meds): ED MEDICATIONS Discontinued Medications Generic Name Dose Route Start Last Admin Trade Name Anna PRN Reason Stop Dose Admin Acetaminophen 1,000 mg 03/02/24 17:33 03/02/24 17:59 Acetaminophen 500mg Tab PO 03/02/24 17:34 1,000 mg ONCE ONE Administration Dexamethasone 10 mg 03/02/24 17:33 03/02/24 17:59 Dexamethasone 4mg Tablet PO 03/02/24 17:34 10 mg ONCE ONE Administration Ketorolac Tromethamine 30 mg 03/02/24 17:33 03/02/24 17:59 Ketorolac 30mg/Ml Vial IM 03/02/24 17:34 30 mg ONCE ONE Administration Lidocaine 1 each 03/02/24 17:37 03/02/24 17:59 Lidocaine 5% Transdermal Patch TP 03/02/24 17:38 1 each ONCE ONE Administration Methocarbamol 500 mg 03/02/24 21:00 Methocarbamol 500mg Tablet PO 04/01/24 20:59 BID TACOS Methocarbamol 500 mg 03/02/24 18:02 03/02/24 18:13 Methocarbamol 500mg Tablet PO 03/02/24 18:03 500 mg ONCE ONE Administration ORDERS Category Date Time Status CT bony pelvis Stat Cat Scan 03/02/24 17:[address] lumbar spine wo con Stat Cat Scan 03/02/24 17:33 Completed Knee XR left 3 views [XR knee LT 3V] Stat Exams 03/02/24 17:33 Completed Knee XR right 3 views [XR knee RT 3V] Stat Exams 03/02/24 17:33 Completed XR femur LT 2V Stat Exams 03/02/24 17:33 Completed XR femur RT 2V Stat Exams 03/02/24 17:33 Completed Medical Decision Narrative: In summary patient is a 84-year-old male who presents to the emergency department for evaluation of lateral lower extremity pain, right greater than left. Patient is able dynamically stable upon arrival, febrile. Sickle exam is remarkable for pain to palpation in the lumbar paraspinous musculature, right greater than left. Patient is neurovascularly intact distally in the bilateral lower extremities however has pain with range of motion testing of same. Differential diagnosis includes musculoskeletal strain, degenerative disc disease, sciatica, occult fracture etc. Initial workup will be conducted with plain film and CT scans of the lumbar spine bony pelvis bilateral knees and femurs. Initial interventions include Toradol Tylenol lidocaine patch. 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 Upon repeat evaluation patient has had moderate improvement in his symptoms is actually able to sit upright without pain at the moment.. Given this patient is appropriate for discharge with referrals to spine surgeon of his choice along with prescriptions for Robaxin and lidocaine patches. Critical Care Critical Care Time Critical Care Time: No
[2024-03-02 17:30] VITALS: BP 127/81; PULSE 63; O2SAT 95
--- NOTE | 2024-03-02 17:33 | XR_ITS ---
PROCEDURE INFORMATION: Exam: XR Left Knee Exam date and time: 03/02/2024 6:27 PM Age: 84 years old Clinical indication: Injury or trauma; Fall; Other: Pain TECHNIQUE: Imaging protocol: Radiologic exam of the left knee. Views: 3 views. COMPARISON: CR XR FEMUR LT 2V 03/02/2024 6:26 PM FINDINGS: Bones/joints: Small marginal osteophytes and degenerative changes involving the left patellofemoral joint. No evidence of acute osseous abnormality. Soft tissues: Normal. IMPRESSION: 1. Small marginal osteophytes and degenerative changes involving the left patellofemoral joint. 2. No evidence of acute osseous abnormality.
--- NOTE | 2024-03-02 17:33 | XR_ITS ---
PROCEDURE INFORMATION: Exam: XR Right Knee Exam date and time: 03/02/2024 6:21 PM Age: 84 years old Clinical indication: Injury or trauma; Fall; Blunt trauma; Knee; Right TECHNIQUE: Imaging protocol: Radiologic exam of the right knee. Views: 3 views. COMPARISON: CR XR FEMUR RT 2V 03/02/2024 6:20 PM FINDINGS: Bones/joints: Small marginal osteophytes and degenerative changes involving the patellofemoral joint. No evidence of acute osseous abnormality. No knee effusion. Soft tissues: Surgical clips located at the medial proximal tibial soft tissues. IMPRESSION: 1. Small marginal osteophytes and degenerative changes involving the patellofemoral joint. 2. No evidence of acute osseous abnormality.
--- NOTE | 2024-03-02 17:33 | CT_ITS ---
PROCEDURE INFORMATION: Exam: CT Lumbar Spine Without Contrast Exam date and time: 03/02/2024 6:20 PM Age: 84 years old Clinical indication: Other: Right hip pain; Additional info: Right lower extremity pain TECHNIQUE: Imaging protocol: Computed tomography of the lumbar spine without contrast. Radiation optimization: All CT scans at this facility use at least one of these dose optimization techniques: automated exposure control; mA and/or kV adjustment per patient size (includes targeted exams where dose is matched to clinical indication); or iterative reconstruction. COMPARISON: CR (L SPINE OBL, LSPINE, L SPINE OBL) 03/11/2019 5:19 PM FINDINGS: Bones/joints: Moderate loss of intervertebral disc space with degenerative changes at lumbar spine greatest at L3-L4 with endplate and facet osteophytosis results in moderate bilateral neural foraminal stenosis at L3-L4 level. Mild bilateral neural foraminal stenosis involving levels L2-L3, and L4 through S1. Vasculature: Severe calcific atherosclerotic disease of the abdominal aorta with aneurysmal dilatation of the infrarenal abdominal aorta measuring 30 mm in diameter. Soft tissues: Unremarkable. IMPRESSION: 1. 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 2. Moderate loss of intervertebral disc space with degenerative changes at lumbar spine greatest at L3-L4 with endplate and facet osteophytosis results in moderate bilateral neural foraminal stenosis at L3-L4 level. Mild bilateral neural foraminal stenosis involving levels L2-L3, and L4 through S1.
--- NOTE | 2024-03-02 17:33 | CT_ITS ---
PROCEDURE INFORMATION: Exam: CT Pelvis Without Contrast; Skeletal Exam date and time: 03/02/2024 6:23 PM Age: 84 years old Clinical indication: Injury or trauma; Fall; Blunt trauma (contusions or hematomas); Right; Hip; Additional info: Sciatic pain fall TECHNIQUE: Imaging protocol: Computed tomography of the pelvis without contrast. Exam focused on the skeleton. Radiation optimization: All CT scans at this facility use at least one of these dose optimization techniques: automated exposure control; mA and/or kV adjustment per patient size (includes targeted exams where dose is matched to clinical indication); or iterative reconstruction. COMPARISON: CT LUMBAR SPINE WO CON 03/02/2024 6:20 PM FINDINGS: Bones/joints: Left femoral head suspected benign bone island. No evidence of acute osseous abnormality. Soft tissues: Favored synovial herniation pits located at the lateral margins of the bilateral femoral head neck junctions. IMPRESSION: No acute findings.
--- NOTE | 2024-03-02 17:33 | XR_ITS ---
PROCEDURE INFORMATION: Exam: XR Left Femur Exam date and time: 03/02/2024 6:26 PM Age: 84 years old Clinical indication: Injury or trauma; Fall; Other: Pain TECHNIQUE: Imaging protocol: Radiologic exam of the left femur. Views: 2 views. COMPARISON: CT BONY PELVIS 03/02/2024 6:23 PM FINDINGS: Bones/joints: Small synovial herniation pit located at the lateral aspect of the left femoral head neck junction. No evidence of acute osseous abnormality. Soft tissues: Unremarkable. IMPRESSION: No evidence of acute osseous abnormality.
--- NOTE | 2024-03-02 17:33 | XR_ITS ---
PROCEDURE INFORMATION: Exam: XR Right Femur Exam date and time: 03/02/2024 6:20 PM Age: 84 years old Clinical indication: Injury or trauma; Fall; Blunt trauma; Thigh or upper leg; Right TECHNIQUE: Imaging protocol: Radiologic exam of the right femur. Views: 2 views. COMPARISON: No relevant prior studies available. FINDINGS: Bones/joints: Favored synovial herniation pit at the lateral margin of the right femoral head neck junction. No evidence of acute osseous abnormality. Soft tissues: Unremarkable. IMPRESSION: No evidence of acute osseous abnormality.
[2024-03-02] MEDS: KETOROLAC 30MG/ML VIAL 30 MG IM (17:59)
[2024-03-02] MEDS: LIDOCAINE 5% TRANSDERMAL PATCH 1 EACH TP (17:59)
[2024-03-02] MEDS: ACETAMINOPHEN 500MG TAB 1000 MG PO (17:59)
[2024-03-02] MEDS: DEXAMETHASONE 4MG TABLET 10 MG PO (17:59)
[2024-03-02] MEDS: METHOCARBAMOL 500MG TABLET 500 MG PO (18:13)
--- NOTE | 2024-03-02 18:39 | PC.NURSE ---
PT GONE TO CT VIA STRETCHER
[2024-03-02 20:18] VITALS: BP 121/72; PULSE 61; RESP 20; TEMP 36.7; O2SAT 98
== END 2024-03-02 20:18 | disposition home or self-care (01) ==
PROVIDERS: Emergency Provider Emergency Medicine; PCP Family Medicine
DX: M54.50 Low back pain, unspecified (principal); F17.210 Nicotine dependence, cigarettes, uncomplicated; W19.XXXA Unspecified fall, initial encounter
CPT/HCPCS: 72131; 72192; 73552; 73562; 96372; 99285

== ENCOUNTER 2024-03-25 13:18 | Inpatient (IN) | payer MEDICARE, OTHER, SELFPAY ==
[2024-03-25] VITALS (16 sets, daily range): BP systolic 86–138; BP diastolic 57–75; PULSE 79–124; RESP 15–23; TEMP 36.4–36.7; O2SAT 96–100; BMI 22.8
--- NOTE | 2024-03-25 13:17 | ECG_ITS ---
APPROVED REPORT Exam: Resting ECG HR:115 bpm ECG Measurements Heart Rate 115 AXES QRSd 113 QRS 31 QT 343 T 230 QTc 411 Conclusion ATRIAL FIBRILLATION WITH RAPID VENTRICULAR RESPONSE MODERATE INTRAVENTRICULAR CONDUCTION DELAY [110+ ms QRS DURATION] ST DEVIATION AND MODERATE T-WAVE ABNORMALITY, CONSIDER LATERAL ISCHEMIA [-0.1+ mV T-WAVE IN I/aVL/V5/V6] ST DEVIATION AND MODERATE T-WAVE ABNORMALITY, CONSIDER INFERIOR ISCHEMIA [-0.1+ mV T-WAVE IN II/aVF] ABNORMAL ECG Electronically signed by : JOYCE WOLF, 03/25/2024 16:26:48
--- NOTE | 2024-03-25 13:19 | XR_ITS ---
FINAL REPORT CLINICAL HISTORY: chest pain, soa FINDINGS: SINGLE-VIEW CHEST There is cardiomegaly. Patient is status post median sternotomy. There is mild bibasilar atelectasis. There is no pneumothorax. IMPRESSION: Mild bibasilar atelectasis. Reviewed, Interpreted and Dictated by Chirag Esparza III, MD Transcribed by Shanda Huizar Authenticated and . [facility]
--- NOTE | 2024-03-25 13:27 | PC.NURSE ---
in room talking with patient at this time.
[2024-03-25 13:30] LABS: Basophils # 0.1 K/mm3 (0-0.2); Basophils % 0.7 % (0.1-2.0); Eosinophils # 0.3 K/mm3 (0.0-0.4); Eosinophils % 2.8 % (0.1-12.0); Hematocrit 41.2 % (42.0-52.0); Hemoglobin 12.9 g/dL (14.1-18.0); Lymphocytes # 2.3 K/mm3 (0.7-4.5); Lymphocytes % 23.8 % (10-50); Mean Corpuscular HGB Conc 31.5 g/dL (31.8-35.4); Mean Corpuscular Hemoglobin 33.5 pg (27.0-31.2); Mean Corpuscular Volume 106.6 fl (80-94); Mean Platelet Volume 9.4 fl (7.4-10.4); Monocytes # 0.5 K/mm3 (0.1-1.0); Monocytes % 4.7 % (1.7-9.3); Neutrophils # 6.4 K/mm3 (1.8-7.8); Platelet Count 218 K/mm3 (142-424); Red Blood Count 3.86 M/mm3 (4.60-6.20); Red Cell Distribution Width 14.6 % (11.5-17.5); White Blood Count 9.5 K/mm3 (4.8-10.8)
[2024-03-25 13:34] LABS: Chloride 108 mmol/L (98-107); Potassium 4.6 mmoL/L (3.5-5.1); Sodium 140 mmol/L (136-145)
[2024-03-25 13:36] LABS: Blood Urea Nitrogen 43 mg/dl (9-20); Creatinine Clearance Estimated 30 mL/min (50-200); Estimated Glomerular Filt Rate 36 ml/min (>60); GFR (African American) 44 ML/MIN (>60)
[2024-03-25 13:37] LABS: Alanine Aminotransferase 73 U/L (12-78); Albumin/Globulin Ratio 1.3 (1.1-1.8); Alkaline Phosphatase 138 U/L (38-126); Anion Gap 11.6 mEq/L (5-15); Aspartate Amino Transferase 55 U/L (17-59); Bilirubin,Total 0.6 mg/dl (0.2-1.3); Calcium 9.3 mg/dl (8.4-10.2); Carbon Dioxide 25 mmol/L (22.0-30.0); Globulin 3.2 g/dL (1.3-3.2); Glucose 98 mg/dl (74-100); Magnesium 2.1 mg/dl (1.6-2.3); Total Protein,Serum 7.2 g/dl (6.3-8.2)
--- NOTE | 2024-03-25 13:38 | [facility].EDCP ---
Discharge Plan Disposition Patient Disposition: Admitted Condition: Good Prescriptions Prescriptions: No Action aspirin [Adult Low Dose Aspirin] 81 mg tablet,delayed release (DR/EC) 81 mg PO DAILY Qty: 90 2RF oxycodone-acetaminophen 5-325 mg tablet 1 tab PO QIDP PRN (Reason: Moderate Pain (Scale Score 5-6)) isosorbide dinitrate 10 mg tablet 10 mg PO DAILY atenolol 25 mg tablet 25 mg PO DAILY clopidogrel 75 mg tablet 75 mg PO DAILY pravastatin 80 mg tablet 80 mg PO DAILY methocarbamol 750 mg tablet 750 mg PO QIDP PRN (Reason: muscle spasm) lisinopril 10 mg tablet 10 mg PO DAILY nitroglycerin 0.4 mg tablet, sublingual 0.4 mg sublingual Q5MINP PRN (Reason: Chest Pain) Referrals Follow up/Referrals: Marianne Perry [Primary Care Provider] - See instructions Clinical Impressions Clinical Impression: Atrial fibrillation with RVR, Elevated troponin Discharge ED Provider: Honey Corrales HPI General Chief Complaint: Chest Pain Stated Complaint: Chest pain Time Seen by Provider: 03/25/24 13:21 Mode of Arrival: Wheelchair Source of Information: Patient Limitations: No Limitations Description of Symptoms (Recalled from ER Triage Doc. by RN): Pt reports mid-sternal chest pain for awhile but does not elaborate much further. He states the past 2 days he has had a bottle of nitro that does provide relief of pain. Pt says pain awoke him this am. Pain in sharp in nature and intermittent. Denies N/V, dizziness, SOA fom baseline. Pt reports no pain at this time. radial pulse is irregular and tachy. History of Present Illness HPI narrative: This patient is an 84-year-old male with a history of CAD status post stenting and CABG, multiple MIs in the past, CVA, carotid stenosis, hypertension, hyperlipidemia, and GERD presenting to the emergency department for evaluation with concern for chest pain. Patient reports that he has had chest pain for a while. He states that he intermittently feels his heart racing but cannot further characterize how long this has been going on. He notes that for the last 2 days things have gotten significantly worse, and last night it became unbearable. It woke him up this morning. It is sharp in nature and intermittent and is associated with a sensation that his heart is racing. He has been taking nitroglycerin for symptoms and his family reports that he has taken almost a full bottle of nitroglycerin over the last 2 days. This does not improve his pain. Upon arrival, his heart rate is irregular and fast concerning for atrial fibrillation, but he denies any known history of A-fib. He also is not on any anticoagulation, though he is on aspirin and Plavix. Related Data Home Medications Medication Instructions Recorded Confirmed atenolol 25 mg tablet 25 mg PO DAILY 03/25/24 03/25/24 clopidogrel 75 mg tablet 75 mg PO DAILY 03/25/24 03/25/24 isosorbide dinitrate 10 mg tablet 10 mg PO DAILY 03/25/24 03/25/24 lisinopril 10 mg tablet 10 mg PO DAILY 03/25/24 03/25/24 methocarbamol 750 mg tablet 750 mg PO QIDP PRN muscle spasm 03/25/24 03/25/24 nitroglycerin 0.4 mg sublingual 0.4 mg sublingual Q5MINP PRN Chest 03/25/24 03/25/24 tablet Pain oxycodone-acetaminophen 5 mg-325 1 tab PO QIDP PRN Moderate Pain 03/25/24 03/25/24 mg tablet (Scale Score 5-6) pravastatin 80 mg tablet 80 mg PO DAILY 03/25/24 03/25/24 Previous Rx's Medication Instructions Recorded aspirin 81 mg tablet,delayed 81 mg PO DAILY #90 tabs 03/17/24 release (Adult Low Dose Aspirin) Allergies Allergy/AdvReac Type Severity Reaction Status Date / Time No Known Allergies Allergy Verified 01/22/24 13:15 [facility] Disclaimer: The information contained in this section may have been updated after the patient was seen, as this information can be updated by other users. Medical History Abnormal electrocardiogram [ECG] [EKG] Stenosis of carotid artery Coronary artery disease History of heart attack History of stroke Hyperlipidemia Hypertension Hypertension Surgical History History of coronary artery bypass graft History of right-sided carotid endarterectomy History of coronary artery stent placement History of incision and drainage History of surgery on lower extremity History of open heart surgery Family History Other Family history of myocardial infarction Social History Smoking Status: Unknown if ever smoked alcohol intake: current alcohol intake frequency: a few times a week substance use type: denies use current occupational status: employed and retired Travel in the last 8 weeks: None household members: spouse housing: house 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fill current occupational exposures/hazards: No caffeine: Yes ROS Obtained: Yes All systems reviewed & no additional complaints except as documented Physical Exam General General appearance: alert and in no apparent distress Head Head exam: atraumatic and normocephalic Eye Eye exam: Present normal appearance, PERRL and EOMI ENT ENT exam: Present normal exam, normal oropharynx, mucous membranes moist and normal external ear exam Neck Neck exam: Present normal inspection, full ROM and trachea midline; Absent tenderness Chest Chest inspection: Present normal inspection and symmetric chest wall rise; Absent tenderness Respiratory Respiratory exam: Present normal lung sounds bilaterally; Absent respiratory distress, wheezes, stridor or accessory muscle use Cardiovascular Cardiovascular exam: Present tachycardia and irregular rhythm Abdominal Exam Abdominal exam: Present soft; Absent distention, tenderness or guarding Extremities Exam Extremities exam: Present normal inspection, full ROM and normal capillary refill; Absent tenderness or edema Back Exam Back exam: Present normal inspection and full ROM; Absent tenderness Neurological Exam Neurological exam: Present alert, oriented X3, CN II-XII intact and normal gait; Absent motor sensory deficit Psychiatric Psychiatric exam: Present normal affect and normal mood Skin Skin exam: Present warm and dry HEART Score HEART Score HEART Score assessment performed?: Yes History (anamnesis): Highly suspicious ECG: Non-specific disturbance Age: >65 years Risk factors: Atherosclerosis history Troponin: 1-3x normal limit HEART Score: 8 Critical Care Critical Care Time Critical Care Time: Yes Attestation: On 03/25/24, the high probability of a clinically significant, sudden or life threatening deterioration of the following system(s) required my full and direct attention, intervention and personal management. The time I documented below is in addition to time spent performing reported procedures but includes the following listed in this critical care notation. Total Time Total Critical Care Time: 30 Medical Decision Making Medical Records Medical records reviewed: Yes I reviewed the patient's medical records. Janusz Inquiry Pt receiving controlled substance: No Vital Signs Vital Signs: 03/25/24 13:18 03/25/24 13:29 03/25/24 13:30 Temperature 97.5 F L Temperature Source Oral Pulse Rate 113 H 124 H Pulse Rate [Right Radial] 113 H Respiratory Rate 18 Blood Pressure 97/70 L Blood Pressure [Right Arm] 98/60 L Blood Pressure Mean 74 Blood Pressure Mean [Right Arm] 72 Blood Pressure Source [Right Arm] Automatic Cuff Blood Pressure Position [Right Arm] Sitting 02 Sat by Pulse Oximetry 98 98 Oxygen Delivery Method Room Air 03/25/24 14:00 03/25/24 14:30 03/25/24 15:00 Temperature Temperature Source Pulse Rate 120 H 111 H 96 H Pulse Rate [Right Radial] Respiratory Rate 17 23 Blood Pressure 97/64 L 100/74 L 90/64 L Blood Pressure [Right Arm] Blood Pressure Mean 72 Blood Pressure Mean [Right Arm] Blood Pressure Source [Right Arm] Blood Pressure Position [Right Arm] 02 Sat by Pulse Oximetry 99 99 99 Oxygen Delivery Method Room Air Room Air 03/25/24 15:30 Temperature Temperature Source Pulse Rate 88 Pulse Rate [Right Radial] Respiratory Rate 22 Blood Pressure 97/65 L Blood Pressure [Right Arm] Blood Pressure Mean Blood Pressure Mean [Right Arm] Blood Pressure Source [Right Arm] Blood Pressure Position [Right Arm] 02 Sat by Pulse Oximetry 98 Oxygen Delivery Method Room Air Lab Data Labs: Lab Results 03/25/24 12:30: D-Dimer 1.17 H, NT-Pro-B Natriuret Pep 8220 H, TSH 1.90, Thyroxine (T4) 5.6 03/25/24 13:20: WBC 9.5, RBC 3.86 L, Hgb 12.9 L, Hct 41.2 L, MCV 106.6 H, MCH 33.5 H, MCHC 31.5 L, RDW 14.6, Plt Count 218, MPV 9.4, Neut % (Auto) 68.0, Lymph % (Auto) 23.8, [place] % (Auto) 4.7, Eos % (Auto) 2.8, Baso % (Auto) 0.7, Neut # (Auto) 6.4, Lymph # (Auto) 2.3, [place] # (Auto) 0.5, Eos # (Auto) 0.3, Baso # (Auto) 0.1, PT 11.1, INR 1.03, APTT 25.1, Sodium 140, Potassium 4.6, Chloride 108 H, Carbon Dioxide 25, Anion Gap 11.6, BUN 43 H, Creatinine 1.80 H, Estimated Creat Clear 30, Estimated GFR 36 L, Est GFR ( Amer) 44 L, Glucose 98, Calcium 9.3, Magnesium 2.1, Total Bilirubin 0.6, AST 55, ALT 73, Alkaline Phosphatase 138 H, Troponin I 0.05 H, Total Protein 7.2, Albumin 4.0, Globulin 3.2, Albumin/Globulin Ratio 1.3 03/25/24 13:20 03/25/24 13:20 Response Orders (Tests/Meds): ED MEDICATIONS Generic Name Dose Route Start Last Admin Trade Name Freq PRN Reason Stop Dose Admin Enoxaparin Sodium 70 mg 03/25/24 15:00 03/25/24 15:13 Enoxaparin 100mg/Ml Syringe 1 mg/kg (70 mg) 04/24/24 14:59 70 mg SQ Administration Q12H TACOS Diltiazem HCl 100 mg/ Sodium 100 mls @ 5 mls/hr 03/25/24 14:20 03/25/24 14:43 Chloride IV 04/24/24 14:19 5 mg/hr .Q20H TACOS 5 mls/hr Administration Protocol 5 MG/HR Discontinued Medications Generic Name Dose Route Start Last Admin Trade Name Freq PRN Reason Stop Dose Admin Aspirin 324 mg 03/25/24 13:31 03/25/24 13:52 Aspirin 81mg Chewable Tablet PO 03/25/24 13:32 324 mg ONCE ONE Administration Diltiazem HCl 10 mg 03/25/24 14:20 03/25/24 14:27 Diltiazem 25mg/5ml Vial IV 03/25/24 14:21 10 mg ONCE ONE Administration Lactated Ringer's 500 mls @ 999 mls/hr 03/25/24 13:44 03/25/24 13:53 Lactated Ringer's 500ml IV 03/25/24 14:14 999 mls/hr .Q31M ONE Administration ORDERS Category Date Time Status CT angio chest PE protocol Stat Cat Scan 03/25/24 15:03 Ordered Cardiology Consult [Consult to Cardiology] [CONS] Cons 03/25/24 13:44 Active Routine XR chest portable Stat Exams 03/25/24 13:19 Completed Activated Partial Thrombo Time Stat Lab 03/25/24 13:20 Completed BNP [NT Pro Brain Natriuretic Pep.] Stat Lab 03/25/24 12:30 Completed Complete Blood Count Auto Diff Stat Lab 03/25/24 13:20 Completed Comprehensive Metabolic Panel Stat Lab 03/25/24 13:20 Completed D-Dimer Stat Lab 03/25/24 12:30 Completed Magnesium Stat Lab 03/25/24 13:20 Completed Prothrombin Time INR Stat Lab 03/25/24 13:20 Completed T4 (Thyroxine) Stat Lab 03/25/24 12:30 Completed TSH [Thyroid Stimulating Hormone] Stat Lab 03/25/24 12:30 Completed Troponin I Q3H Lab 03/25/24 16:30 Ordered Troponin I Q3H Lab 03/25/24 19:30 Ordered Troponin I Stat Lab 03/25/24 13:20 Completed CA echo doppler complete Routine Y 03/25/24 14:57 Completed ECG Data Tracing #1: Attestation: I reviewed this ECG and interpreted as documented below: ECG Narrative: Atrial fibrillation with a ventricular rate of 115. Intraventricular conduction delay. No acute ST changes from prior EKG. ECG initial impression date: 03/25/24 ECG initial impression time: 13:18 MDM Narrative Medical Decision Narrative: In summary, this patient is a 84-year-old male presenting to the Emergency Department for evaluation of chest pain and palpitations. Differential diagnoses considered include but are not limited to ACS, dysrhythmia, GERD, electrolyte derangements, costochondritis, PE. Ruling out the most morbid conditions drove assessment. It should be noted patient's history includes extensive coronary disease which is likely not at goal therapy. This complicates all aspects of care by increasing patient's risk for morbidity. I reviewed patient's past medical records and noted previous cardiology evaluations and previous diagnosis of hypertensive heart disease. No prior mention of atrial fibrillation. Patient is on aspirin and Plavix but not anticoagulated. On exam, the patient is resting comfortably in no acute distress. He has an irregularly irregular heartbeat with rates ranging from low 100s-120s. Blood pressure is stable with maps greater than 70s. Workup included CBC, CMP, troponin, TSH, T4, BNP, D-dimer, magnesium, chest x-ray, and EKG. I independently interpreted x-ray prior to the radiologist read and noted no acute focal consolidation. Please see their read for final interpretation. Labs were obtained that demonstrated elevated troponin of 0.05 and mildly elevated D-dimer. He also has mildly elevated creatinine. Labs are otherwise reassuring. EKG is not concerning for STEMI. I had an interactive discussion with cardiology who advised starting the patient on a diltiazem drip for management of his heart failure, so bolus and drip were administered. Patient required frequent reassessments and monitoring for titration of the drip. He remained hemodynamically stable and heart rate improved to the 70s after the drip, though he remained in atrial fibrillation. Given elevated D-dimer, CTA was ordered.
[2024-03-25 13:41] LABS: Activated Partial Thrombo Time 25.1 seconds (22.8-30.6); INR 1.03 (0.9-1.1); Prothrombin Time 11.1 seconds (10.1-12.5)
[2024-03-25 13:49] LABS: Troponin I 0.05 ng/ml (0.00-0.034)
[2024-03-25] MEDS: ASPIRIN 81MG CHEWABLE TABLET 324 MG PO (13:52)
[2024-03-25] MEDS: RINGERS SOLUTION,LACTATED 500 ML 999 ML IV (13:53)
[2024-03-25] MEDS: dilTIAZem 25MG/5ML VIAL 10 MG IV (14:27)
--- NOTE | 2024-03-25 14:37 | PC.NURSE ---
Cardiology at bedside
[2024-03-25] MEDS: dilTIAZem HCL 100 MG in 0.9 % SODIUM CHLORIDE 100 ML IV ×2 (14:43→22:18)
[2024-03-25 14:45] LABS: D-Dimer 1.17 ug/mL (0.0-0.5)
[2024-03-25 14:48] LABS: NT Pro Brain Natriuretic Pep. 8220 pg/mL (0-450)
--- NOTE | 2024-03-25 14:53 | PC.NURSE ---
Dr. Vicky farfan
--- NOTE | 2024-03-25 14:55 | P.CONCA_ITS ---
History of Present Illness History of Present Illness Consult date: 03/25/24 Requesting physician: Honey Corrales Consult reason: atrial fibrillation Chief complaint: Chest pain History of present illness: 84-year-old white male with history of CAD status post CABG in 1989 at age 45. He reports 8 other heart attacks and caths since that time but the last cath was approximately 20 years ago. Also has hx of R-CEA and has known chronic L-carotid occlusion. He recently established with our office in January and was stable at the time but we ordered echo to check LV status. The echo showed normal LV function with biatrial dilation and moderate TR. Patient is typically active and still works part-time without symptoms. Over the past week he has had worsening episodes of chest discomfort which seem to be at least partially resolved with sublingual nitroglycerin. This morning he used 5 different rounds of nitroglycerin so he presented to the emergency room. On arrival here he has new diagnosed A-fib with heart rate of 120s, first troponin is 0.05, EKG shows A-fib, CXR pending. He is in no distress. [facility] Disclaimer: The information contained in this section may have been updated after the patient was seen, as this information can be updated by other users. Medical History Abnormal electrocardiogram [ECG] [EKG] Stenosis of carotid artery Coronary artery disease History of heart attack History of stroke Hyperlipidemia Hypertension Hypertension Surgical History History of coronary artery bypass graft History of right-sided carotid endarterectomy History of coronary artery stent placement History of incision and drainage History of surgery on lower extremity History of open heart surgery Family History Other Family history of myocardial infarction Social History Smoking Status: Unknown if ever smoked alcohol intake: current alcohol intake frequency: a few times a week substance use type: denies use current occupational status: employed and retired Travel in the last 8 weeks: None household members: spouse housing: house 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fill current occupational exposures/hazards: No caffeine: Yes Review of Systems Constitutional Constitutional: Denies fatigue and Denies weakness Eyes Eyes: Denies loss of vision ENT Ears, Nose, Mouth, and Throat: Denies hearing loss and Denies vertigo *Cardiovascular Cardiovascular: Reports chest pain, Denies dyspnea and Denies syncope *Respiratory Respiratory: Denies cough and Denies dyspnea *Gastrointestinal Gastrointestinal: Denies change in stool character, Denies nausea and Denies vomiting *Genitourinary Genitourinary: Denies difficulty urinating *Musculoskeletal Musculoskeletal: Denies muscle weakness Integumentary/Breasts Skin/Breast: Denies changing lesions *Neurologic Neurologic: Denies loss of vision, Denies syncope, Denies vertigo and Denies weakness Endocrine Endocrine: Denies fatigue Exam Data for Last 24 hours Vital signs and Labs for Last 24 Hours: Temp Pulse Resp BP Pulse Ox O2 Del Method 97.5 F L 111 H 17 100/74 L 99 Room Air 03/25/24 13:18 03/25/24 14:30 03/25/24 14:30 03/25/24 14:30 03/25/24 14:30 03/25/24 14:30 Laboratory Results - last 24 hr 03/25/24 13:20: WBC 9.5, RBC 3.86 L, Hgb 12.9 L, Hct 41.2 L, MCV 106.6 H, MCH 33.5 H, MCHC 31.5 L, RDW 14.6, Plt Count 218, MPV 9.4, Neut % (Auto) 68.0, Lymph % (Auto) 23.8, [place] % (Auto) 4.7, Eos % (Auto) 2.8, Baso % (Auto) 0.7, Neut # (Auto) 6.4, Lymph # (Auto) 2.3, [place] # (Auto) 0.5, Eos # (Auto) 0.3, Baso # (Auto) 0.1, PT 11.1, INR 1.03, APTT 25.1, Sodium 140, Potassium 4.6, Chloride 108 H, Carbon Dioxide 25, Anion Gap 11.6, BUN 43 H, Creatinine 1.80 H, Estimated Creat Clear 30, Estimated GFR 36 L, Est GFR ( Amer) 44 L, Glucose 98, Calcium 9.3, Magnesium 2.1, Total Bilirubin 0.6, AST 55, ALT 73, Alkaline Phosphatase 138 H, Troponin I 0.05 H, Total Protein 7.2, Albumin 4.0, Globulin 3.2, Albumin/Globulin Ratio 1.3 I & O for Last 24 hours: Intake & Output 03/22/24 03/23/24 03/24/24 03/25/24 23:59 23:59 23:59 23:59 Weight 155 lb Constitutional Constitutional: no acute distress and cooperative *Routine HEENT Exam Eye: Present PERRL *Routine Respiratory Exam Respiratory: Present CTA bilaterally; Absent accessory muscle use, wheezes or crackles *Routine Cardiovascular Exam Cardiovascular: Present RRR, Normal S1 and Normal S2; Absent murmur, gallop or rubs *Routine Abdominal Exam Abdominal: Present soft; Absent tenderness *Routine Extremities Exam Extremities: Present pulses intact; Absent cyanosis or edema *Routine Skin Exam Skin: Present intact; Absent erythema or wounds *Routine Neurological Exam Neurological: Present alert and oriented X3 Routine Psychiatric Exam Psychiatric: Present cooperative Meds Home Medications and Allergies Home Medications Medication Instructions Recorded Confirmed Type tramadol 50 mg tablet 50 mg PO NEEDED PRN Pain 08/29/23 01/22/24 History lidocaine 5 % topical patch 1 patch topical DAILY #30 ea 03/02/24 Rx methocarbamol 750 mg tablet 750 mg PO QID PRN muscle spasm 03/02/24 Rx #120 tabs aspirin 81 mg tablet,delayed 81 mg PO DAILY #90 tabs 03/17/24 Rx release (Adult Low Dose Aspirin) atenolol 25 mg tablet 25 mg PO DAILY High blood pressure 03/17/24 Rx #90 tabs clopidogrel 75 mg tablet 75 mg PO DAILY Blood thinner #90 03/17/24 Rx tabs isosorbide dinitrate 10 mg tablet 10 mg PO DAILY High blood pressure 03/17/24 Rx #90 tabs lisinopril 10 mg tablet 10 mg PO DAILY High blood pressure 03/17/24 Rx #90 tabs nitroglycerin 0.4 mg sublingual 0.4 mg sublingual NEEDED PRN 03/17/24 Rx tablet Pain #14 tabs pravastatin 80 mg tablet See Rx Instructions .Route 03/18/24 Rx .COMPLEX #90 tabs New Prescriptions to Start Prescriptions: Allergies Allergy/AdvReac Type Severity Reaction Status Date / Time No Known Allergies Allergy Verified 01/22/24 13:15 Assessment and Plan *Assessment and plan (1) Atrial fibrillation with rapid ventricular response: Status: Acute Category: Medical Code(s): I48.91 - Unspecified atrial fibrillation (2) Unstable angina: Status: Acute Category: Medical Code(s): I20.0 - Unstable angina (3) History of coronary artery bypass graft: Status: Acute Category: Surgical Code(s): Z95.1 - Presence of aortocoronary bypass graft (4) History of right-sided carotid endarterectomy: Status: Acute Category: Surgical Code(s): Z98.890 - Other specified postprocedural states Plan 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 - last cath >20 years ago per pt - 1 week of worsening chest pressure occurring at rest, partially relieved with Ntg and now associated with new A-fib - no ST elevation, asymptomatic at this time - cont DAPT, BB, Statin, add Lovenox - consider predischarge [facility] A-fib RVR - new dx this admission in setting of unstable angina - start Cardizem drip, Lovenox, and check 2D ECHO - consider [facility] +/- LAY/DCCV tomorrow - KEEP NPO after midnight 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 Alejandra and awaiting to see Dr. Barnes
[2024-03-25 14:56] LABS: T4 (Thyroxine) 5.6 ug/dl (5.53-11.0)
--- NOTE | 2024-03-25 14:57 | CA_ITS ---
APPROVED REPORT EXAM: Comprehensive 2D, Doppler, and color-flow Echocardiogram Supervisor [employer]: Anette James, RCS, RVS Ht: 5 ft 9 in Wt: 163lbs BSA: 1.89 BP: 100/74 mmHg Indications: cp,cad-cabg, old SC, AI, TR,MR, PI 2D Dimensions IVSd 0.92 cm M: 0.6-1.2 LVEF (Visual) 49.30 % PWd 1.28 cm M: 0.6 - 1.2 LA Volume 91.40 mL LVDd 6.27 cm M: 4.2 - 5.9 LA Volume Index 48.11 mL/m2 (M/F) 16-34 LVDs 4.67 cm M: 2.5 - 4.0 EF AP2 45.9 % Left Atrium 5.63 cm M: 3.0 - 4.0 GL Strain -19.5 % M-Mode Dimensions LA Diam 5.33 cm (1.9-4.0) EPSs 1.82 cm TAPSE 0.90 (<1.7) LV Diastology E Decel Time 187 (160-240 msec) E/A Ratio 1.75 MED A' 7.80 cm/s LAT A' 6.00 cm/s Aortic Valve MARVA Index 1.06 cm2/m2 AoV Peak Yoni. 116.0 (50-130 cm/s) AI PHT 427.00 ms AO Peak GR. 5.40 mmHg AO Mean GR. 2.70 (<5 mmHg) AO VTI 21.8 (18-25 cm) MARVA (VTI) 2.06 (2.5-4.5 cm2) Mitral Valve MV A Velocity 65.0 (40-130 cm/s) E/A Ratio 1.75 Pulmonary Valve WV End VMAX 185.0 cm/s Tricuspid Valve TR P. Velocity 308.00 cm/s RAP Estimate 10.00 mmHg RVSP 48.00 mmHg Left Ventricle The left ventricle is normal size. Left ventricular systolic function is mildly decreased. There is normal left ventricular wall thickness. The septum is asynchronous. Diastolic function is indeterminate. LVEF is 40-45%. Right Ventricle The right ventricle is normal size. The right ventricular systolic function is normal. Atria The left atrium is severely dilated. The right atrium is mildly dilated. There is no Doppler evidence of interatrial shunt. Aortic Valve The aortic valve is mildly thickened. There is no aortic valvular stenosis. Mild aortic regurgitation. Mitral Valve The mitral valve leaflets are mildly thickened. Moderate mitral regurgitation. No evidence of mitral valve stenosis. Tricuspid Valve The tricuspid valve leaflets are thin and normal. Mild to moderate tricuspid vegetation. RVSP is 40-45 mmHg. Pulmonic Valve The pulmonary valve is normal in structure. Mild pulmonary regurgitation. Great Vessels The aortic root is normal in size. The ascending aorta is not well-visualized. IVC is normal in size and collapses >50% with inspiration. Pericardium There is no pericardial effusion. Other Information Study Quality: Fair Conclusion Mildly reduced LV systolic function (LVEF 40-45%). Biatrial dilation. Moderate MR. Mild to moderate TR. Mild AR, mild PI. Elevated RVSP 40-45 mmHg. Electronically signed by : Funmi Botello MD 03/27/2024 13:00:02
--- NOTE | 2024-03-25 15:01 | PC.NURSE ---
Dr. Fazal farfan
--- NOTE | 2024-03-25 15:03 | CT_ITS ---
PROCEDURE INFORMATION: Exam: CTA Chest With Contrast Exam date and time: 03/25/2024 4:36 PM Age: 84 years old Clinical indication: Other: Chest pain; Additional info: Chest pain, elevated d-dimer TECHNIQUE: Imaging protocol: Computed tomographic angiography of the chest with contrast. Exam focused on the arteries. 3D rendering (Not supervised by radiologist): MIP and/or 3D reconstructed images were created by the technologist. Radiation optimization: All CT scans at this facility use at least one of these dose optimization techniques: automated exposure control; mA and/or kV adjustment per patient size (includes targeted exams where dose is matched to clinical indication); or iterative reconstruction. Contrast material: ISOVUE; Contrast volume: 75 ml; Contrast route: INTRAVENOUS (IV); COMPARISON: 1. CR XR CHEST PORTABLE 03/25/2024 2:11 PM 2. US CA CAROTID DUPLEX BI 02/07/2024 1:12 PM 3. CR XR SHOULDER RT MIN 2V 06/07/2022 10:29 AM FINDINGS: Pulmonary arteries: There is no evidence for clinically relevant pulmonary arterial filling defect. Tiny distal filling defects may be present but are of dubious clinical significance. There is dilation of the main pulmonary artery as well as the major branch pulmonary arteries. This may reflect underlying pulmonary hypertension. Aorta: There is atherosclerotic disease of the visualized aorta and its major branch vessels. Lungs: There is presumed rounded atelectasis of the lung bases. There are scattered areas of emphysema throughout the lungs. Scattered areas of bronchial wall thickening which are likely chronic inflammatory. A few areas of subpleural reticulation are noted, nonspecific. Pleural spaces: There are trace bilateral pleural effusions. 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 Heart: Reflux of contrast into the intrahepatic IVC may reflect some element right heart failure. Coronary arteries: There is moderate coronary atherosclerotic disease/calcification although evaluation is limited secondary to the non gated nature of the study. Lymph nodes: Unremarkable. No enlarged lymph nodes. Bones/joints: There is diffuse degenerative disease of the visualized osseous structures. The patient is status post median sternotomy. Soft tissues: There is bilateral gynecomastia. IMPRESSION: 1. Trace bilateral pleural effusions with bibasilar rounded atelectasis. Follow-up examination is suggested. 2. No evidence for clinically relevant pulmonary arterial filling defect. 3. Findings which suggest underlying pulmonary arterial hypertension.
--- NOTE | 2024-03-25 15:11 | HMH.PHAINT1 ---
Pharmacy Intervention Comments: MEDICATION RECONCILIATION COMPLETED ON PATIENT USING EXTERNAL FILL HISTORY [facility]. -BHUMIKA MORALES, IVAND
[2024-03-25] MEDS: ENOXAPARIN 100MG/ML SYRINGE 70 MG SQ (15:13)
--- NOTE | 2024-03-25 16:29 | PC.NURSE ---
patient gone to CT at this time.
[2024-03-25] MEDS: SODIUM CHLORIDE 0.9% 10ML SYR (RAD ONLY) 10 ML IV (16:46)
[2024-03-25] MEDS: IOPAMIDOL-370 (76%);100ML BOTTLE 75 ML IV (16:46)
[2024-03-25] MEDS: 0.9 % SODIUM CHLORIDE 50 ML VIAL IV (16:46)
[2024-03-25 17:05] LABS: Troponin I 0.05 ng/ml (0.00-0.034)
--- NOTE | 2024-03-25 17:33 | PC.NURSE ---
house called for bed request.
--- NOTE | 2024-03-25 17:34 | PC.NURSE ---
awaiting room to be cleaned.
--- NOTE | 2024-03-25 18:12 | PC.NURSE ---
admission delayed. stat clean ordered for room expected for pt
--- NOTE | 2024-03-25 18:45 | PC.NURSE ---
waiting on room to be cleaned from previous pt discharge
--- NOTE | 2024-03-25 19:54 | PC.NURSE ---
called report to kena POND RN
[2024-03-25 20:05] LABS: Troponin I 0.04 ng/ml (0.00-0.034)
--- NOTE | 2024-03-25 20:06 | PC.NURSE ---
pt arrived to floor at this time
[2024-03-25] MEDS: PATIENT'S OWN HOME MEDICATION (Pravastatin 80 mg tablet) 80 EACH PO (22:19)
--- NOTE | 2024-03-25 23:31 | EXP.HP ---
History of Present Illness *Admission Date: 03/25/24 *Reason for visit:: Chest pain *History of present illness: This is a 84-year-old male with a past medical history of CAD status post CABG in 1989 with 8 of her heart attacks with cath since then, also known history of right CEA with chronic left carotid occlusion who presents emergency department today with complaints of chest pain. He states that chest pain began yesterday for which she took several nitro pills for. States that his chest pain was ongoing and felt like his heart was smothering. Decided to seek treatment in the emergency department. On arrival to the emergency department he was noted to have atrial fibrillation with RVR with heart rate in the 120s. He denies any diaphoresis or nausea but did endorse exercise intolerance. He is an 84-year-old male that still works part-time. Emergency department workup notable for atrial fibrillation with RVR. cardiology was consulted on the time of admission and recommend Cardizem drip and further cardiac evaluation. He was able to tolerate 2 doses of Cardizem bolus with drip. At the time of admission heart rate is between 90 and 110 with a stable blood pressure. [facility] Disclaimer: The information contained in this section may have been updated after the patient was seen, as this information can be updated by other users. Medical History Abnormal electrocardiogram [ECG] [EKG] Stenosis of carotid artery Coronary artery disease History of heart attack History of stroke Hyperlipidemia Hypertension Hypertension Surgical History History of coronary artery bypass graft History of right-sided carotid endarterectomy History of coronary artery stent placement History of incision and drainage History of surgery on lower extremity History of open heart surgery Family History Other Family history of myocardial infarction Social History Smoking Status: Unknown if ever smoked alcohol intake: current alcohol intake frequency: a few times a week substance use type: denies use current occupational status: employed and retired Travel in the last 8 weeks: None household members: spouse housing: house 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fill current occupational exposures/hazards: No caffeine: Yes Review of Systems Review of Systems Review of systems:: pertinent systems reviewed and negative unless documented below Constitutional Constitutional: Denies weakness Eyes Eyes: Denies loss of vision ENT Ears, Nose, Mouth, and Throat: Denies vertigo *Cardiovascular Cardiovascular: Denies syncope *Neurologic Neurologic: Denies loss of vision, Denies syncope, Denies vertigo and Denies weakness Meds Home Medications and Allergies Home Medications Medication Instructions Recorded Confirmed Type aspirin 81 mg tablet,delayed 81 mg PO DAILY #90 tabs 03/17/24 03/25/24 Rx release (Adult Low Dose Aspirin) atenolol 25 mg tablet 25 mg PO DAILY 03/25/24 03/25/24 History clopidogrel 75 mg tablet 75 mg PO DAILY 03/25/24 03/25/24 History isosorbide dinitrate 10 mg tablet 10 mg PO DAILY 03/25/24 03/25/24 History lisinopril 10 mg tablet 10 mg PO DAILY 03/25/24 03/25/24 History methocarbamol 750 mg tablet 750 mg PO QIDP PRN muscle spasm 03/25/24 03/25/24 History nitroglycerin 0.4 mg sublingual 0.4 mg sublingual Q5MINP PRN Chest 03/25/24 03/25/24 History tablet Pain oxycodone-acetaminophen 5 mg-325 1 tab PO QIDP PRN Moderate Pain 03/25/24 03/25/24 History mg tablet (Scale Score 5-6) pravastatin 80 mg tablet 80 mg PO DAILY 03/25/24 03/25/24 History New Prescriptions to Start Prescriptions: Allergies Allergy/AdvReac Type Severity Reaction Status Date / Time No Known Allergies Allergy Verified 01/22/24 13:15 Exam Data for Last 24 hours Vital signs and Labs for Last 24 Hours: Temp Pulse Resp BP Pulse Ox O2 Del Method 97.7 F 105 H 18 138/71 96 Room Air 03/25/24 22:00 03/25/24 22:00 03/25/24 22:00 03/25/24 22:00 03/25/24 22:00 03/25/24 23:00 Laboratory Results - last 24 hr 03/25/24 12:30: D-Dimer 1.17 H, NT-Pro-B Natriuret Pep 8220 H, TSH 1.90, Thyroxine (T4) 5.6 03/25/24 13:20: WBC 9.5, RBC 3.86 L, Hgb 12.9 L, Hct 41.2 L, MCV 106.6 H, MCH 33.5 H, MCHC 31.5 L, RDW 14.6, Plt Count 218, MPV 9.4, Neut % (Auto) 68.0, Lymph % (Auto) 23.8, [place] % (Auto) 4.7, Eos % (Auto) 2.8, Baso % (Auto) 0.7, Neut # (Auto) 6.4, Lymph # (Auto) 2.3, [place] # (Auto) 0.5, Eos # (Auto) 0.3, Baso # (Auto) 0.1, PT 11.1, INR 1.03, APTT 25.1, Sodium 140, Potassium 4.6, Chloride 108 H, Carbon Dioxide 25, Anion Gap 11.6, BUN 43 H, Creatinine 1.80 H, Estimated Creat Clear 30, Estimated GFR 36 L, Est GFR ( Amer) 44 L, Glucose 98, Calcium 9.3, Magnesium 2.1, Total Bilirubin 0.6, AST 55, ALT 73, Alkaline Phosphatase 138 H, Troponin I 0.05 H, Total Protein 7.2, Albumin 4.0, Globulin 3.2, Albumin/Globulin Ratio 1.3 03/25/24 16:20: Troponin I 0.05 H 03/25/24 19:25: Troponin I 0.04 H I & O for Last 24 hours: Intake & Output 03/22/24 03/23/24 03/24/24 03/25/24 23:59 23:59 23:59 23:59 Output Total 0 / 0 Balance 0 / 0 Weight 70.307 kg Constitutional Constitutional: no acute distress *Routine HEENT Exam Head: Present normocephalic Eye: Present EOMI and PERRL ENT: Present mucous membranes moist *Routine Neck Exam Neck: Present supple; Absent lymphadenopathy *Routine Respiratory Exam Respiratory: Present CTA bilaterally *Routine Cardiovascular Exam Cardiovascular: Present irregular rhythm and irregularly irregular *Routine Abdominal Exam Abdominal: Present soft and normoactive bowel sounds; Absent tenderness *Routine Rectal Exam Rectal:: deferred *Routine Genitalia Exam Genitalia:: deferred *Routine Extremities Exam Extremities: Absent cyanosis, clubbing or edema *Routine Skin Exam Skin: Present warm; Absent rash *Routine Neurological Exam Neurological: Present alert and oriented X3 Assessment and Plan *Assessment and plan (1) Atrial fibrillation with RVR: Status: Acute Category: Medical Code(s): I48.91 - Unspecified atrial fibrillation (2) CHELY (acute kidney injury): Status: Acute Category: Medical Code(s): N17.9 - Acute kidney failure, unspecified (3) History of heart attack: Status: Acute Category: Medical Code(s): I25.2 - Old myocardial infarction (4) Hypertension: Status: Acute Qualifiers: Hypertension type: primary hypertension Qualified Code(s): I10 - Essential (primary) hypertension Category: Medical Code(s): I10 - Essential (primary) hypertension (5) Hyperlipidemia: Status: Acute Qualifiers: Hyperlipidemia type: mixed hyperlipidemia Qualified Code(s): E78.2 - Mixed hyperlipidemia Category: Medical Code(s): E78.5 - Hyperlipidemia, unspecified (6) CAD (coronary artery disease): Status: Acute Category: Medical Code(s): I25.10 - Atherosclerotic heart disease of [place] coronary artery without angina pectoris Plan #Atrial fibrillation with RVR New this admission, cardiology consulted Continue Cardizem drip. Received therapeutic Lovenox x 1. Echocardiogram in a.m. N.p.o. for possible LHC +/-LAY DCCV #CAD N.p.o. for possible cath in a.m. No ST elevation noted on EKG Continue DAPT, BB, statin and therapeutic Lovenox #CHELY Likely prerenal Received IV fluids in the emergency department Repeat BMP in a.m. DVT PPx therapeutic Lovenox dose x 1 full code
[2024-03-26] VITALS (28 sets, daily range): BP systolic 84–143; BP diastolic 46–79; PULSE 75–114; RESP 15–28; TEMP 36.4–36.9; O2SAT 89–97; BMI 23.2
[2024-03-26 00:08] LABS: Troponin I 0.04 ng/ml (0.00-0.034)
[2024-03-26 03:04] LABS: Troponin I 0.04 ng/ml (0.00-0.034)
[2024-03-26] MEDS: ENOXAPARIN 100MG/ML SYRINGE 70 MG SQ (03:27)
[2024-03-26] MEDS: 0.9 % SODIUM CHLORIDE 500 ML 125 ML IV (03:31)
[2024-03-26 06:46] LABS: Anion Gap 10.4 mEq/L (5-15); Blood Urea Nitrogen 41 mg/dl (9-20); Calcium 8.7 mg/dl (8.4-10.2); Carbon Dioxide 26 mmol/L (22.0-30.0); Chloride 107 mmol/L (98-107); Chol/HDL Ratio 1.9 (1-3.5); Cholesterol 80 mg/dl (140-200); Creatinine Clearance Estimated 35 mL/min (50-200); Estimated Glomerular Filt Rate 41 ml/min (>60); GFR (African American) 50 ML/MIN (>60); Glucose 92 mg/dl (74-100); HDL Cholesterol 43 mg/dl (40-60); Magnesium 2.1 mg/dl (1.6-2.3); Potassium 4.4 mmoL/L (3.5-5.1); Sodium 139 mmol/L (136-145); Triglycerides 97 mg/dl (30-150); VLDL Cholesterol 19 mg/dL (0-40)
[2024-03-26 07:02] LABS: Basophils # 0.1 K/mm3 (0-0.2); Eosinophils # 0.3 K/mm3 (0.0-0.4); Lymphocytes # 2.2 K/mm3 (0.7-4.5); Mean Platelet Volume 9.4 fl (7.4-10.4)
[2024-03-26 07:10] LABS: Basophils % 0.8 % (0.1-2.0); Eosinophils % 3.2 % (0.1-12.0); Hematocrit 35.4 % (42.0-52.0); Lymphocytes % 24.8 % (10-50); Mean Corpuscular HGB Conc 32.2 g/dL (31.8-35.4); Mean Corpuscular Hemoglobin 33.5 pg (27.0-31.2); Monocytes # 0.6 K/mm3 (0.1-1.0); Monocytes % 6.6 % (1.7-9.3); Neutrophils # 5.6 K/mm3 (1.8-7.8); Neutrophils % 64.5 % (37.0-80.0); Platelet Count 210 K/mm3 (142-424); Red Blood Count 3.41 M/mm3 (4.60-6.20); Red Cell Distribution Width 14.9 % (11.5-17.5); White Blood Count 8.7 K/mm3 (4.8-10.8)
[2024-03-26 08:32] LABS: Hemoglobin 11.4 g/dL (14.1-18.0)
[2024-03-26] MEDS: ATENOLOL 25MG TABLET 25 MG PO (08:46)
[2024-03-26] MEDS: CLOPIDOGREL 75MG TAB 75 MG PO (08:46)
[2024-03-26] MEDS: ASPIRIN EC 81MG TABLET 81 MG PO (08:46)
--- NOTE | 2024-03-26 11:15 | IR_ITS ---
APPROVED REPORT Patient Location: Outpatient PROCEDURES Left heart catheterization Left ventriculogram Selective coronary angiogram Left internal mammary angiography Selective engagement of saphenous vein graft to the right coronary Selective using a saphenous vein graft to the circumflex artery Bilateral selective renal angiography Informed consent was obtained prior to the procedure. COMPLICATIONS NONE Estimated Blood Loss: LESS THAN 10 ML TECHNIQUE One percent lidocaine used to anesthetize the right groin. The right femoral artery was accessed via the Seldinger technique and a 5 [place] sheath was placed in the right femoral artery. A JL 4, JR4 catheter were used to perform left heart catheterization, left ventriculogram selective coronary angiography as well as selective engagement of the 2 vein grafts and the left internal mammary artery. At the end of the diagnostic procedure the JR4 catheter was used to perform bilateral selective renal angiography. Following this the apparatus was removed the sheath was removed and hemostasis was achieved using manual pressure patent patient was transferred to the postop putting in stable condition ANGIOGRAPHIC RESULTS The left main artery Moderate to severely calcified and heavily diseased with diffuse 50-60 to 70% stenoses The left anterior descending artery Has an ostial 80 to 90% calcified stenosis and then gives rise to a medium sized first diagonal artery which is patent. 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 Recommend medical management for coronary artery disease. At this time I am not in favor of stenting the left main artery which extends into severely diseased LAD simply to provide inline flow to the medium size diagonal artery. This would require patient to be on triple anticoagulation therapy for the next 1 month. The troponin was minimally elevated and likely from a type II myocardial infarction. 2. Recommend rate control for atrial fibrillation and consider LAY with cardioversion 3. Anticoagulation for atrial fibrillation 4. Should patient experience ongoing angina pectoris despite rate control consideration can be given to bring patient back to stent the left main artery and the proximal LAD in order to provide inline flow to the medium size diagonal artery. Otherwise medical management is recommended Electronically signed by : Leandro Person MD 03/26/2024 14:55:44
--- NOTE | 2024-03-26 12:13 | EXP.CARD.CON ---
History of Present Illness History of Present Illness Consult date: 03/26/24 [facility] Disclaimer: The information contained in this section may have been updated after the patient was seen, as this information can be updated by other users. Medical History Abnormal electrocardiogram [ECG] [EKG] Stenosis of carotid artery Coronary artery disease History of heart attack History of stroke Hyperlipidemia Hypertension Hypertension Surgical History History of coronary artery bypass graft History of right-sided carotid endarterectomy History of coronary artery stent placement History of incision and drainage History of surgery on lower extremity History of open heart surgery Family History Other Family history of myocardial infarction Social History Smoking Status: Unknown if ever smoked alcohol intake: current alcohol intake frequency: a few times a week substance use type: denies use current occupational status: employed and retired Travel in the last 8 weeks: None household members: spouse housing: house 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fill current occupational exposures/hazards: No caffeine: Yes Review of Systems Constitutional Constitutional: Denies weakness Eyes Eyes: Denies loss of vision ENT Ears, Nose, Mouth, and Throat: Denies vertigo *Cardiovascular Cardiovascular: Denies syncope *Neurologic Neurologic: Denies loss of vision, Denies syncope, Denies vertigo and Denies weakness Exam Data for Last 24 hours Vital signs and Labs for Last 24 Hours: Temp Pulse Resp BP Pulse Ox O2 Del Method 97.6 F 104 H 18 109/60 L 96 Room Air 03/26/24 07:56 03/26/24 10:00 03/26/24 10:00 03/26/24 10:00 03/26/24 10:00 03/26/24 11:38 Laboratory Results - last 24 hr 03/25/24 12:30: D-Dimer 1.17 H, NT-Pro-B Natriuret Pep 8220 H, TSH 1.90, Thyroxine (T4) 5.6 03/25/24 13:20: WBC 9.5, RBC 3.86 L, Hgb 12.9 L, Hct 41.2 L, MCV 106.6 H, MCH 33.5 H, MCHC 31.5 L, RDW 14.6, Plt Count 218, MPV 9.4, Neut % (Auto) 68.0, Lymph % (Auto) 23.8, [place] % (Auto) 4.7, Eos % (Auto) 2.8, Baso % (Auto) 0.7, Neut # (Auto) 6.4, Lymph # (Auto) 2.3, [place] # (Auto) 0.5, Eos # (Auto) 0.3, Baso # (Auto) 0.1, PT 11.1, INR 1.03, APTT 25.1, Sodium 140, Potassium 4.6, Chloride 108 H, Carbon Dioxide 25, Anion Gap 11.6, BUN 43 H, Creatinine 1.80 H, Estimated Creat Clear 30, Estimated GFR 36 L, Est GFR ( Amer) 44 L, Glucose 98, Calcium 9.3, Magnesium 2.1, Total Bilirubin 0.6, AST 55, ALT 73, Alkaline Phosphatase 138 H, Troponin I 0.05 H, Total Protein 7.2, Albumin 4.0, Globulin 3.2, Albumin/Globulin Ratio 1.3 03/25/24 16:20: Troponin I 0.05 H 03/25/24 19:25: Troponin I 0.04 H 03/25/24 23:40: Troponin I 0.04 H 03/26/24 02:35: Troponin I 0.04 H 03/26/24 05:23: WBC 8.7, RBC 3.41 L, Hgb 11.4 L D, Hct 35.4 L, MCV 104.0 H, MCH 33.5 H, MCHC 32.2, RDW 14.9, Plt Count 210, MPV 9.4, Neut % (Auto) 64.5, Lymph % (Auto) 24.8, [place] % (Auto) 6.6, Eos % (Auto) 3.2, Baso % (Auto) 0.8, Neut # (Auto) 5.6, Lymph # (Auto) 2.2, [place] # (Auto) 0.6, Eos # (Auto) 0.3, Baso # (Auto) 0.1, Sodium 139, Potassium 4.4, Chloride 107, Carbon Dioxide 26, Anion Gap 10.4, BUN 41 H, Creatinine 1.60 H, Estimated Creat Clear 35, Estimated GFR 41 L, Est GFR ( Amer) 50 L, Glucose 92, Calcium 8.7, Magnesium 2.1, Triglycerides 97, Cholesterol 80 L, LDL Cholesterol Direct 38.40 L, VLDL Cholesterol 19, HDL Cholesterol 43, Cholesterol/HDL Ratio 1.9 I & O for Last 24 hours: Intake & Output 03/23/24 03/24/24 03/25/24 03/26/24 23:59 23:59 23:59 23:59 Intake Total 240 / 240 Output Total 0 / 0 325 / 325 Balance 0 / 240 -85 / -85 Weight 155 lb 156 lb 14.4 oz Meds Home Medications and Allergies Home Medications Medication Instructions Recorded Confirmed Type aspirin 81 mg tablet,delayed 81 mg PO DAILY #90 tabs 03/17/24 03/25/24 Rx release (Adult Low Dose Aspirin) atenolol 25 mg tablet 25 mg PO DAILY 03/25/24 03/25/24 History clopidogrel 75 mg tablet 75 mg PO DAILY 03/25/24 03/25/24 History isosorbide dinitrate 10 mg tablet 10 mg PO DAILY 03/25/24 03/25/24 History lisinopril 10 mg tablet 10 mg PO DAILY 03/25/24 03/25/24 History methocarbamol 750 mg tablet 750 mg PO QIDP PRN muscle spasm 03/25/24 03/25/24 History nitroglycerin 0.4 mg sublingual 0.4 mg sublingual Q5MINP PRN Chest 03/25/24 03/25/24 History tablet Pain oxycodone-acetaminophen 5 mg-325 1 tab PO QIDP PRN Moderate Pain 03/25/24 03/25/24 History mg tablet (Scale Score 5-6) pravastatin 80 mg tablet 80 mg PO DAILY 03/25/24 03/25/24 History New Prescriptions to Start Prescriptions: Allergies Allergy/AdvReac Type Severity Reaction Status Date / Time No Known Allergies Allergy Verified 01/22/24 13:15
--- NOTE | 2024-03-26 12:14 | P.PN_ITS ---
Subjective Subjective Date: 03/26/24 Time: 10:00 Principal diagnosis: chest pain and A-fib RVR Interval history: Remains in A-fib but rate controlled. No further CP. Trop remained flat. ECHO shows EF approx 45% which is new dx. Exam Data for Last 24 hours Vital signs and Labs for Last 24 Hours: Temp Pulse Resp BP Pulse Ox O2 Del Method 97.6 F 104 H 18 109/60 L 96 Room Air 03/26/24 07:56 03/26/24 10:00 03/26/24 10:00 03/26/24 10:00 03/26/24 10:00 03/26/24 11:38 Laboratory Results - last 24 hr 03/25/24 12:30: D-Dimer 1.17 H, NT-Pro-B Natriuret Pep 8220 H, TSH 1.90, Thyroxine (T4) 5.6 03/25/24 13:20: WBC 9.5, RBC 3.86 L, Hgb 12.9 L, Hct 41.2 L, MCV 106.6 H, MCH 33.5 H, MCHC 31.5 L, RDW 14.6, Plt Count 218, MPV 9.4, Neut % (Auto) 68.0, Lymph % (Auto) 23.8, [place] % (Auto) 4.7, Eos % (Auto) 2.8, Baso % (Auto) 0.7, Neut # (Auto) 6.4, Lymph # (Auto) 2.3, [place] # (Auto) 0.5, Eos # (Auto) 0.3, Baso # (Auto) 0.1, PT 11.1, INR 1.03, APTT 25.1, Sodium 140, Potassium 4.6, Chloride 108 H, Carbon Dioxide 25, Anion Gap 11.6, BUN 43 H, Creatinine 1.80 H, Estimated Creat Clear 30, Estimated GFR 36 L, Est GFR ( Amer) 44 L, Glucose 98, Ca lcium 9.3, Magnesium 2.1, Total Bilirubin 0.6, AST 55, ALT 73, Alkaline Phosphatase 138 H, Troponin I 0.05 H, Total Protein 7.2, Albumin 4.0, Globulin 3.2, Albumin/Globulin Ratio 1.3 03/25/24 16:20: Troponin I 0.05 H 03/25/24 19:25: Troponin I 0.04 H 03/25/24 23:40: Troponin I 0.04 H 03/26/24 02:35: Troponin I 0.04 H 03/26/24 05:23: WBC 8.7, RBC 3.41 L, Hgb 11.4 L D, Hct 35.4 L, MCV 104.0 H, MCH 33.5 H, MCHC 32.2, RDW 14.9, Plt Count 210, MPV 9.4, Neut % (Auto) 64.5, Lymph % (Auto) 24.8, [place] % (Auto) 6.6, Eos % (Auto) 3.2, Baso % (Auto) 0.8, Neut # (Auto) 5.6, Lymph # (Auto) 2.2, [place] # (Auto) 0.6, Eos # (Auto) 0.3, Baso # (Auto) 0.1, Sodium 139, Potassium 4.4, Chloride 107, Carbon Dioxide 26, Anion Gap 10.4, BUN 41 H, Creatinine 1.60 H, Estimated Creat Clear 35, Estimated GFR 41 L, Est GFR ( Amer) 50 L, Glucose 92, Calcium 8.7, Magnesium 2.1, Triglycerides 97, Cholesterol 80 L, LDL Cholesterol Direct 38.40 L, VLDL Cholesterol 19, HDL Cholesterol 43, Cholesterol/HDL Ratio 1.9 I & O for Last 24 hours: Intake & Output 03/23/24 03/24/24 03/25/24 03/26/24 23:59 23:59 23:59 23:59 Intake Total 240 / 240 Output Total 0 / 0 325 / 325 Balance 0 / 240 -85 / -85 Weight 155 lb 156 lb 14.4 oz Constitutional Constitutional: no acute distress and cooperative *Routine HEENT Exam Eye: Present PERRL *Routine Respiratory Exam Respiratory: Present CTA bilaterally; Absent accessory muscle use, wheezes or crackles *Routine Cardiovascular Exam Cardiovascular: Present RRR, Normal S1, Normal S2 and irregular rhythm; Absent murmur, gallop or rubs *Routine Abdominal Exam Abdominal: Present soft; Absent tenderness *Routine Extremities Exam Extremities: Present pulses intact; Absent cyanosis or edema *Routine Skin Exam Skin: Present intact; Absent erythema or wounds *Routine Neurological Exam Neurological: Present alert and oriented X3 Routine Psychiatric Exam Psychiatric: Present cooperative Progress Note: A&P Assessment and plan (1) Atrial fibrillation with RVR: Status: Acute (2) CHELY (acute kidney injury): Status: Acute (3) History of heart attack: Status: Acute (4) Hypertension: Status: Acute (5) Hyperlipidemia: Status: Acute (6) CAD (coronary artery disease): Status: Acute (7) Unstable angina: Status: Acute Assessment and Plan Assessment and Plan for All Diagnoses:: 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 Pt agreeable to [facility] today. A-fib RVR - new dx this admission in setting of unstable angina - ECHO shows EF 45% which is new for him - Plan: change CCB to BB, Cont Lovenox. Further plans pending [facility]. Consider LAY/DCCV tomorrow. 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 Alejandra and awaiting to see Dr. Barnes
[2024-03-26] MEDS: 0.9 % SODIUM CHLORIDE 500 ML 25 ML IV (13:42)
[2024-03-26] MEDS: LIDOCAINE 1% 10ML MDV 20 ML IJ (13:42)
[2024-03-26] MEDS: diphenhydrAMINE 50MG/ML VIAL 50 MG IV (13:42)
[2024-03-26] MEDS: HEPARIN 1,000 UNITS/500ML NS (CATH LAB) 3000 UNIT IV (13:42)
[2024-03-26] MEDS: FENTANYL 100MCG/2ML VIAL 50 MCG IV (14:21)
[2024-03-26] MEDS: MIDAZOLAM HCL 1MG/1ML 5ML VIAL 1 MG IV (14:21)
[2024-03-26] MEDS: dilTIAZem HCL 100 MG in 0.9 % SODIUM CHLORIDE 100 ML IV (14:51)
[2024-03-26] MEDS: IOPAMIDOL-370 (76%);100ML BOTTLE 50 ML IV (15:05)
--- NOTE | 2024-03-26 15:33 | PC.NURSE ---
Addendum entered by Ana Ceballos RN 03/26/24 18:34: HR 115. BP 126/70. CARDIZEM DRIP INCREASED TO 5 MG/HR. Original Note: PT IS RESTING IN BED. ALERT AND ORIENTED X3. VERY [place]. DRESSING TO THE RIGHT CATH SITE C/D/I. AFIB ON TELEMETRY. AT 1300 CARDIZEM DRIP WAS DECREASED FROM 5 MG/HR TO 2.5 MG/HR PER CARDIOLOGY DUE TO BP BEING 101/58. HR HAS MAINTAINED 85-110. LUNG SOUNDS CLEAR. ABDOMEN SOFT/NON TENDER WITH ACTIVE BOWEL SOUNDS. WILL CONTINUE TO MONITOR.
[2024-03-26] MEDS: ENOXAPARIN 80MG/0.8ML SYRINGE 70 MG SQ (16:24)
--- NOTE | 2024-03-26 16:53 | P.PN_ITS ---
Subjective *Date: 03/26/24 *Time: 16:53 Interval history: patient is seen at bedside, no fevers, abdominal pain Exam Data for Last 24 hours Vital signs and Labs for Last 24 Hours: Temp Pulse Resp BP Pulse Ox O2 Del Method O2 Flow Rate 97.6 F 107 H 19 114/78 94 L Room Air 94 03/26/24 15:00 03/26/24 16:46 03/26/24 16:46 03/26/24 16:46 03/26/24 16:46 03/26/24 16:46 03/26/24 16:15 Laboratory Results - last 24 hr 03/25/24 16:20: Troponin I 0.05 H 03/25/24 19:25: Troponin I 0.04 H 03/25/24 23:40: Troponin I 0.04 H 03/26/24 02:35: Troponin I 0.04 H 03/26/24 05:23: WBC 8.7, RBC 3.41 L, Hgb 11.4 L D, Hct 35.4 L, MCV 104.0 H, MCH 33.5 H, MCHC 32.2, RDW 14.9, Plt Count 210, MPV 9.4, Neut % (Auto) 64.5, Lymph % (Auto) 24.8, [place] % (Auto) 6.6, Eos % (Auto) 3.2, Baso % (Auto) 0.8, Neut # (Auto) 5.6, Lymph # (Auto) 2.2, [place] # (Auto) 0.6, Eos # (Auto) 0.3, Baso # (Auto) 0.1, Sodium 139, Potassium 4.4, Chloride 107, Carbon Dioxide 26, Anion Gap 10.4, BUN 41 H, Creatinine 1.60 H, Estimated Creat Clear 35, Estimated GFR 41 L, Est GFR ( Amer) 50 L, Glucose 92, Calcium 8.7, Magnesium 2.1, Triglycerides 97, Cholesterol 80 L, LDL Cholesterol Direct 38.40 L, VLDL Cholesterol 19, HDL Cholesterol 43, Cholesterol/HDL Ratio 1.9 I & O for Last 24 hours: Intake & Output 03/23/24 03/24/24 03/25/24 03/26/24 23:59 23:59 23:59 23:59 Intake Total 318.125 / 318.125 Output Total 0 / 0 325 / 325 Balance 0 / 240 -6.875 / -6.875 Weight 70.307 kg 71.169 kg Constitutional Constitutional: no acute distress *Routine HEENT Exam Head: Present normocephalic Eye: Present EOMI and PERRL ENT: Present mucous membranes moist *Routine Neck Exam Neck: Present supple; Absent lymphadenopathy *Routine Respiratory Exam Respiratory: Present CTA bilaterally *Routine Cardiovascular Exam Cardiovascular: Present RRR *Routine Abdominal Exam Abdominal: Present soft and normoactive bowel sounds; Absent tenderness *Routine Extremities Exam Extremities: Absent cyanosis, clubbing or edema *Routine Skin Exam Skin: Present warm; Absent rash *Routine Neurological Exam Neurological: Present alert and oriented X3 Assessment and Plan *Assessment and plan (1) Atrial fibrillation with RVR: Status: Acute Category: Medical Code(s): I48.91 - Unspecified atrial fibrillation (2) CHELY (acute kidney injury): Status: Acute Category: Medical Code(s): N17.9 - Acute kidney failure, unspecified (3) History of heart attack: Status: Acute Category: Medical Code(s): I25.2 - Old myocardial infarction (4) Hypertension: Status: Acute Qualifiers: Hypertension type: primary hypertension Qualified Code(s): I10 - Essential (primary) hypertension Category: Medical Code(s): I10 - Essential (primary) hypertension (5) Hyperlipidemia: Status: Acute Qualifiers: Hyperlipidemia type: mixed hyperlipidemia Qualified Code(s): E78.2 - Mixed hyperlipidemia Category: Medical Code(s): E78.5 - Hyperlipidemia, unspecified (6) CAD (coronary artery disease): Status: Acute Category: Medical Code(s): I25.10 - Atherosclerotic heart disease of [place] coronary artery without angina pectoris Plan #Atrial fibrillation with RVR CAD New this admission, cardiology consulted Continue Cardizem drip. Received therapeutic Lovenox x 1. Echocardiogram pending result s/p Cardiac cath, no stenting performed, cardiology recommended medical management Continue DAPT, BB, statin and therapeutic Lovenox #CHELY Likely prerenal continue IV fludis DVT PPx therapeutic Lovenox dose x 1 full code
[2024-03-26] MEDS: PRAVASTATIN 40MG TAB 80 MG PO (21:01)
[2024-03-26] MEDS: ACETAMINOPHEN 325MG TAB 650 MG PO (22:05)
[2024-03-27] VITALS (25 sets, daily range): BP systolic 84–131; BP diastolic 42–80; PULSE 52–109; RESP 14–22; TEMP 36.4–36.9; O2SAT 91–99; BMI 23.7
[2024-03-27] MEDS: ENOXAPARIN 80MG/0.8ML SYRINGE 70 MG SQ (04:07)
[2024-03-27] MEDS: ACETAMINOPHEN 325MG TAB 650 MG PO ×3 (04:09→19:40)
[2024-03-27] MEDS: dilTIAZem HCL 100 MG in 0.9 % SODIUM CHLORIDE 100 ML 7.5 MG IV (06:23)
[2024-03-27 06:34] LABS: Basophils # 0.1 K/mm3 (0-0.2); Basophils % 0.6 % (0.1-2.0); Eosinophils # 0.1 K/mm3 (0.0-0.4); Eosinophils % 0.6 % (0.1-12.0); Hematocrit 36.3 % (42.0-52.0); Hemoglobin 11.6 g/dL (14.1-18.0); Lymphocytes # 1.5 K/mm3 (0.7-4.5); Lymphocytes % 14.7 % (10-50); Mean Corpuscular HGB Conc 31.9 g/dL (31.8-35.4); Mean Corpuscular Hemoglobin 33.9 pg (27.0-31.2); Mean Corpuscular Volume 106.2 fl (80-94); Mean Platelet Volume 9.1 fl (7.4-10.4); Monocytes # 0.8 K/mm3 (0.1-1.0); Monocytes % 8.1 % (1.7-9.3); Neutrophils # 7.6 K/mm3 (1.8-7.8); Neutrophils % 75.9 % (37.0-80.0); Platelet Count 190 K/mm3 (142-424); Red Blood Count 3.42 M/mm3 (4.60-6.20); Red Cell Distribution Width 14.9 % (11.5-17.5)
[2024-03-27 06:55] LABS: Anion Gap 12.6 mEq/L (5-15); Blood Urea Nitrogen 42 mg/dl (9-20); Calcium 8.7 mg/dl (8.4-10.2); Carbon Dioxide 22 mmol/L (22.0-30.0); Chloride 107 mmol/L (98-107); Creatinine Clearance Estimated 40 mL/min (50-200); Estimated Glomerular Filt Rate 48 ml/min (>60); GFR (African American) 58 ML/MIN (>60); Glucose 115 mg/dl (74-100); Potassium 4.6 mmoL/L (3.5-5.1); Sodium 137 mmol/L (136-145)
[2024-03-27] MEDS: ASPIRIN EC 81MG TABLET 81 MG PO (08:09)
[2024-03-27] MEDS: CLOPIDOGREL 75MG TAB 75 MG PO (08:09)
[2024-03-27] MEDS: ATENOLOL 25MG TABLET 25 MG PO (08:09)
--- NOTE | 2024-03-27 11:22 | P.PN_ITS ---
Subjective Subjective Date: 03/27/24 Time: 10:00 Principal diagnosis: chest pain and A-fib RVR Interval history: LHC yesterday revealed significant multivessel disease but not amenable to revascularization, deferred to medical therapy for the time being. Patient remains in A-fib with controlled rate this morning. He is n.p.o. and agreeable to LAY cardioversion today. Exam Data for Last 24 hours Vital signs and Labs for Last 24 Hours: Temp Pulse Resp BP Pulse Ox O2 Del Method O2 Flow Rate 97.7 F 90 18 115/76 92 L Room Air 94 03/27/24 08:51 03/27/24 10:00 03/27/24 10:00 03/27/24 10:00 03/27/24 10:00 03/27/24 10:49 03/26/24 16:15 Laboratory Results - last 24 hr 03/27/24 06:16: WBC 10.0, RBC 3.42 L, Hgb 11.6 L, Hct 36.3 L, MCV 106.2 H, MCH 33.9 H, MCHC 31.9, RDW 14.9, Plt Count 190, MPV 9.1, Neut % (Auto) 75.9, Lymph % (Auto) 14.7, [place] % (Auto) 8.1, Eos % (Auto) 0.6, Baso % (Auto) 0.6, Neut # (Auto) 7.6, Lymph # (Auto) 1.5, [place] # (Auto) 0.8, Eos # (Auto) 0.1, Baso # (Auto) 0.1, Sodium 137, Potassium 4.6, Chloride 107, Carbon Dioxide 22, Anion Gap 12.6, BUN 42 H, Creatinine 1.40 H, Estimated Creat Clear 40, Estimated GFR 48 L, Est GFR ( Amer) 58 L, Glucose 115 H, Calcium 8.7 I & O for Last 24 hours: Intake & Output 03/24/24 03/25/24 03/26/24 03/27/24 23:59 23:59 23:59 23:59 Intake Total 645.500 / 645.500 93.125 / 93.125 Output Total 0 / 0 325 / 325 0 / 0 Balance 0 / 240 320.500 / 320.500 93.125 / 93.125 Weight 155 lb 156 lb 14.4 oz 160 lb 1.6 oz Constitutional Constitutional: no acute distress and cooperative Comments: [place] *Routine HEENT Exam Eye: Present PERRL *Routine Respiratory Exam Respiratory: Present CTA bilaterally; Absent accessory muscle use, wheezes or crackles *Routine Cardiovascular Exam Cardiovascular: Present RRR, Normal S1, Normal S2 and irregular rhythm; Absent murmur, gallop or rubs *Routine Abdominal Exam Abdominal: Present soft; Absent tenderness *Routine Extremities Exam Extremities: Present pulses intact; Absent cyanosis or edema *Routine Skin Exam Skin: Present intact; Absent erythema or wounds *Routine Neurological Exam Neurological: Present alert and oriented X3 Routine Psychiatric Exam Psychiatric: Present cooperative Progress Note: A&P Assessment and plan (1) Atrial fibrillation with RVR: Status: Acute (2) CAD (coronary artery disease): Status: Acute (3) CHELY (acute kidney injury): Status: Acute (4) History of heart attack: Status: Acute (5) Hypertension: Status: Acute (6) Hyperlipidemia: Status: Acute (7) Unstable angina: Status: Acute Assessment and Plan Assessment and Plan for All Diagnoses:: 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 Add Imdur 60mg daily as antianginal. A-fib RVR - new dx this admission in setting of unstable angina - failed to convert with >24 hours of rate control with Cardizem - ECHO shows EF 45% which is new for him - Plan: LAY/DCCV today then change Lovenox and Aspirin to Eliquis 5mg BID. Cont Atenolol. Consider Amio or ablation outpatient if recurrent. He will need 2 week monitor at discharge. 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 Alejandra and awaiting to see Dr. Barnes Addendum: -Successful cardioversion to sinus bradycardia, reduced EF -Change aspirin and Lovenox to Eliquis 5 mg twice daily -Reduced atenolol to 12.5 mg due to bradycardia -Add amiodarone 400 mg twice daily for 10 days then reduce to 400 mg daily -Add PPI -Likely DC tomorrow
[2024-03-27] MEDS: ISOSORBIDE MONO 60MG TAB.ER.24H 60 MG PO (11:38)
--- NOTE | 2024-03-27 11:42 | PC.NURSE ---
pt going off the floor at this time for cardioversion. report given to JHONATAN Saleh in surgery.
--- NOTE | 2024-03-27 12:00 | CA_ITS ---
APPROVED REPORT EXAM: Comprehensive 2D, Doppler, and color-flow Echocardiogram Lining Scrubber: Tish AlexandreLISA montesinos Ht: 5 ft 9 in Wt: 163lbs BSA: 1.89 BP: 100/74 mmHg Indications: A-FIB WITH CARDIOVERSION,CABG,CAD,HTN Echo Enhancing Agent Indication: Rule out thrombus Agent(s) / Amount(s) Used: Definity 4 cc Procedure After obtaining informed consent, patient underwent transesophageal echo in the [facility]. Type of Sedation : MAC Sedation was administered by Anil Corrales C.R.N.A. Sedation start time: 12:35 Case end Time: 13:00 Propofol () Echo enhancement indication: R/O Thrombus. Echo enhancement agent administered: Definity The LAY was performed without complications. Synchronized Cardioversion acheived with 200 Joules after 2 attempt(s). Rhythm following Synchronized Cardioversion: Sinus Bradycardia Throughout the procedure, the blood pressure, pulse oximetry, cardiac rhythm, and rate were monitored. The patient tolerated the procedure without adverse effects. Recovery from conscious sedation was uneventful and vital signs were stable. Left Ventricle The left ventricle is normal size. Left ventricular systolic function is mildly decreased. There is increased LV wall thickness. There is mild global hypokinesis present. LVEF is 45%. Right Ventricle The right ventricle is normal size. The right ventricular systolic function is normal. Atria The left atrium is dilated. Spontaneous echo contrast is noted in the left atrial appendage (MAYRA), but without clear evidence of MAYRA mass or thrombus. Administration of ultrasound enhancing agent demonstrates full opacification of the MAYRA without evidence of filling defects, suggestive of absence of MAYRA thrombus. The right atrium is dilated. Interatrial septum is intact without evidence of ASD or PFO. Aortic Valve The aortic valve is mildly thickened. Mild aortic regurgitation. There is no aortic valvular stenosis. Mitral Valve The mitral valve leaflets are mildly thickened. No evidence of mitral valve stenosis. Mild mitral regurgitation. Tricuspid Valve The tricuspid valve leaflets are thin and pliable. Mild tricuspid regurgitation. RVSP is 18 mmHg + RA pressure. Pulmonic Valve The pulmonary valve is normal in structure. Mild pulmonic regurgitation. Great Vessels The aortic root is normal in size. The ascending aorta is normal in size. Pericardium There is no pericardial effusion. Other Information Study Quality: Fair Conclusion Mildly reduced LV systolic function (LVEF 45%). Biatrial dilation. Mild MR, mild AI, mild TR, mild PI. The left atrium is dilated. Spontaneous echo contrast is noted in the left atrial appendage (MAYRA), but without clear evidence of MAYRA mass or thrombus. Administration of ultrasound enhancing agent demonstrates full opacification of the MAYRA without evidence of filling defects, suggestive of absence of MAYRA thrombus. When LAY demonstrated no evidence of LA or MAYRA thrombus, the patient underwent DCCV. After the first shock of 150 J, he continued to be in atrial fibrillation. Subsequently, he underwent second shock with 200 J, after which she converted to normal sinus rhythm/sinus bradycardia with frequent ectopy. Post procedurally, he recovered well with no issues, he continued to be hemodynamically stable and was transferred back to the floor. In the setting of sinus bradycardia, the dose of his home atenolol was halved, and he was started on PO amiodarone to maintain NSR. Electronically signed by : Funmi Botello MD 03/27/2024 23:27:11
--- NOTE | 2024-03-27 12:13 | EXP.ANES.CKL ---
[facility] Disclaimer: The information contained in this section may have been updated after the patient was seen, as this information can be updated by other users. Medical History Abnormal electrocardiogram [ECG] [EKG] Stenosis of carotid artery Coronary artery disease History of heart attack History of stroke Hyperlipidemia Hypertension Hypertension Surgical History History of coronary artery bypass graft History of right-sided carotid endarterectomy History of coronary artery stent placement History of incision and drainage History of surgery on lower extremity History of open heart surgery Family History Other Family history of myocardial infarction Social History Smoking Status: Unknown if ever smoked alcohol intake: current alcohol intake frequency: a few times a week substance use type: denies use current occupational status: employed and retired Travel in the last 8 weeks: None household members: spouse housing: house 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 current occupational exposures/hazards: No caffeine: Yes [facility] Anesthesia Checklist Patient Identification Patient Identification: Arm Band Structural Data Admitted From: Inpatient Planned Operative Procedure/s: LAY Consent for Planned Operative Procedure(s) Verified: Yes Verified Documents: Surgical Consent, History and Physical and Cardiac Clearance NPO Status Verified Time NPO: 00:00 Additional verifications Patient : No Anesthesia Reactions: No Hx Blood Transfusions: No Blood Transfusion Reaction: No Cephalosporin Allergy: No Previous Colonoscopy: No Airway Assessment Mallampati Score:: Class IV C-Spine Mobility Assessed: Yes TMJ Mobility Assessed: Yes Dentition: Edentulous Neurological Assessment Level of Consciousness: Awake, Alert, Appropriate and Follows Commands Hx Seizures: No Numbness or tingling in extremities: No Anesthesia Plan Anesthesia Risk discussed: Yes ASA Class: III Anesthesia Type: MAC Preoperative Comments Pre-Operative Comments: [facility] at age 45. Recent stents. History of Atrial Fib. Possible Inferior and lateral ischemia. Coronary Artery Disease. Unstable angina. History of right endarterectomy. History CVA. History of CVA.
--- NOTE | 2024-03-27 12:47 | SUR.OPER ---
cardioversion 150joules delivered at 1247 200joules delivered at 1248 sinus juan jose at 1249
--- NOTE | 2024-03-27 12:55 | ECG_ITS ---
APPROVED REPORT Exam: Resting ECG HR:49 bpm ECG Measurements Heart Rate 49 AXES UT 188 P 137 QRSd 109 QRS 31 QT 494 T -87 QTc 463 Conclusion SINUS BRADYCARDIA WITH OCCASIONAL SUPRAVENTRICULAR PREMATURE COMPLEXES ABNORMAL ECG UNCONFIRMED REPORT Electronically signed by : Magdaleno Diehl MD 03/28/2024 12:24:45
[2024-03-27] MEDS: DEFINITY US ECHO CONTRAST 2ML INJ 2 MG IV (13:29)
[2024-03-27] MEDS: AMIODARONE 200MG TABLET 400 MG PO ×2 (13:50→20:52)
--- NOTE | 2024-03-27 13:52 | PC.NURSE ---
pt back to room at this time.
--- NOTE | 2024-03-27 16:06 | PC.NURSE ---
pt A&O t/o shift. ls cta. pt on room air. abdomen soft, non tender. bs active. pt is hard of hearing and wears hearing aids. pt did go down for a LAY Cardioversion this shift. pt currently in NSR. call light w/i reach.
--- NOTE | 2024-03-27 17:10 | EXP.PN ---
Subjective *Date: 03/27/24 *Time: 17:10 Interval history: patient is seen at bedside, he is alert and awake, no fevers, abdominal pain Exam Data for Last 24 hours Vital signs and Labs for Last 24 Hours: Temp Pulse Resp BP Pulse Ox O2 Del Method O2 Flow Rate 98.4 F 75 18 131/71 95 Room Air 1 03/27/24 13:03 03/27/24 16:00 03/27/24 15:50 03/27/24 15:50 03/27/24 15:50 03/27/24 15:50 03/27/24 13:20 Laboratory Results - last 24 hr 03/27/24 06:16: WBC 10.0, RBC 3.42 L, Hgb 11.6 L, Hct 36.3 L, MCV 106.2 H, MCH 33.9 H, MCHC 31.9, RDW 14.9, Plt Count 190, MPV 9.1, Neut % (Auto) 75.9, Lymph % (Auto) 14.7, [place] % (Auto) 8.1, Eos % (Auto) 0.6, Baso % (Auto) 0.6, Neut # (Auto) 7.6, Lymph # (Auto) 1.5, [place] # (Auto) 0.8, Eos # (Auto) 0.1, Baso # (Auto) 0.1, Sodium 137, Potassium 4.6, Chloride 107, Carbon Dioxide 22, Anion Gap 12.6, BUN 42 H, Creatinine 1.40 H, Estimated Creat Clear 40, Estimated GFR 48 L, Est GFR ( Amer) 58 L, Glucose 115 H, Calcium 8.7 I & O for Last 24 hours: Intake & Output 03/24/24 03/25/24 03/26/24 03/27/24 23:59 23:59 23:59 23:59 Intake Total 645.500 / 645.500 168.125 / 168.125 Output Total 0 / 0 325 / 325 0 / 0 Balance 0 / 240 320.500 / 320.500 168.125 / 168.125 Weight 70.307 kg 71.169 kg 72.62 kg Constitutional Constitutional: no acute distress *Routine HEENT Exam Head: Present normocephalic Eye: Present EOMI and PERRL ENT: Present mucous membranes moist *Routine Neck Exam Neck: Present supple; Absent lymphadenopathy *Routine Respiratory Exam Respiratory: Present CTA bilaterally *Routine Cardiovascular Exam Cardiovascular: Present RRR *Routine Abdominal Exam Abdominal: Present soft and normoactive bowel sounds; Absent tenderness *Routine Extremities Exam Extremities: Absent cyanosis, clubbing or edema *Routine Skin Exam Skin: Present warm; Absent rash *Routine Neurological Exam Neurological: Present alert and oriented X3 Assessment and Plan *Assessment and plan (1) Atrial fibrillation with RVR: Status: Acute Category: Medical Code(s): I48.91 - Unspecified atrial fibrillation (2) CHELY (acute kidney injury): Status: Acute Category: Medical Code(s): N17.9 - Acute kidney failure, unspecified (3) History of heart attack: Status: Acute Category: Medical Code(s): I25.2 - Old myocardial infarction (4) Hypertension: Status: Acute Qualifiers: Hypertension type: primary hypertension Qualified Code(s): I10 - Essential (primary) hypertension Category: Medical Code(s): I10 - Essential (primary) hypertension (5) Hyperlipidemia: Status: Acute Qualifiers: Hyperlipidemia type: mixed hyperlipidemia Qualified Code(s): E78.2 - Mixed hyperlipidemia Category: Medical Code(s): E78.5 - Hyperlipidemia, unspecified (6) CAD (coronary artery disease): Status: Acute Category: Medical Code(s): I25.10 - Atherosclerotic heart disease of [place] coronary artery without angina pectoris Plan #Atrial fibrillation with RVR CAD cardiology consulted s/p cardioversion started on Eliquis weaned off of cardizem gtt and started atenolol to 12.5 mg -Amiodarone 400 mg twice daily for 10 days then reduce to 400 mg daily Echocardiogram results below - Mildly reduced LV systolic function (LVEF 40-45%). Biatrial dilation. Moderate MR. Mild to moderate TR. Mild AR, mild PI. Elevated RVSP 40-45 mmHg. s/p Cardiac cath, no stenting performed, cardiology recommended medical management Continue DAPT, BB, statin and therapeutic Lovenox #CHELY - improving monitor DVT PPx therapeutic Lovenox dose x 1 full code
[2024-03-27] MEDS: APIXABAN 5MG TABLET 5 MG PO (20:52)
[2024-03-27] MEDS: PRAVASTATIN 40MG TAB 80 MG PO (20:52)
[2024-03-27] MEDS: PANTOPRAZOLE 40MG TABLET 40 MG PO (20:52)
--- NOTE | 2024-03-28 00:03 | PC.NURSE ---
notified kayla elkins of soft pressure 87/46, going to put an order in for a 250 of normal saline
--- NOTE | 2024-03-28 01:49 | PC.NURSE ---
bp came up to 103/57 after 250cc of fluid infused. pt denies any complaints
[2024-03-28 04:00] VITALS: BP 103/51; PULSE 63; PULSE 83; RESP 17; TEMP 36.8; O2SAT 95; BMI 23.8
[2024-03-28 06:10] LABS: Basophils # 0.1 K/mm3 (0-0.2); Basophils % 0.5 % (0.1-2.0); Eosinophils # 0.1 K/mm3 (0.0-0.4); Eosinophils % 0.7 % (0.1-12.0); Hematocrit 34.8 % (42.0-52.0); Hemoglobin 11.3 g/dL (14.1-18.0); Lymphocytes # 1.5 K/mm3 (0.7-4.5); Lymphocytes % 14.1 % (10-50); Mean Corpuscular HGB Conc 32.6 g/dL (31.8-35.4); Mean Corpuscular Volume 104.4 fl (80-94); Mean Platelet Volume 9.1 fl (7.4-10.4); Monocytes # 0.9 K/mm3 (0.1-1.0); Monocytes % 8.6 % (1.7-9.3); Neutrophils # 8.2 K/mm3 (1.8-7.8); Neutrophils % 76.1 % (37.0-80.0); Platelet Count 172 K/mm3 (142-424); Red Blood Count 3.33 M/mm3 (4.60-6.20); White Blood Count 10.7 K/mm3 (4.8-10.8)
[2024-03-28 06:22] LABS: Anion Gap 11.4 mEq/L (5-15); Blood Urea Nitrogen 40 mg/dl (9-20); Calcium 8.5 mg/dl (8.4-10.2); Carbon Dioxide 22 mmol/L (22.0-30.0); Chloride 107 mmol/L (98-107); Creatinine Clearance Estimated 44 mL/min (50-200); Estimated Glomerular Filt Rate 53 ml/min (>60); GFR (African American) 64 ML/MIN (>60); Glucose 106 mg/dl (74-100); Potassium 4.4 mmoL/L (3.5-5.1); Sodium 136 mmol/L (136-145)
--- NOTE | 2024-03-28 06:41 | PC.NURSE ---
pt is a&o. room air. afib on tele this shift, rate controlled. kayla elkins aware pt is in afib. pt complained of back pain, tylenol given. voiding well. no complaints this shift
[2024-03-28 07:57] VITALS: BP 123/67; PULSE 74; RESP 21; TEMP 36.9; O2SAT 94
[2024-03-28 08:00] VITALS: PULSE 80
--- NOTE | 2024-03-28 08:44 | EXP.CARD.PN ---
Subjective Subjective Date: 03/28/24 Time: 08:44 Principal diagnosis: chest pain and A-fib RVR Interval history: Back in A-fib overnight but he is rate controlled. Exam Data for Last 24 hours Vital signs and Labs for Last 24 Hours: Temp Pulse Resp BP Pulse Ox O2 Del Method O2 Flow Rate 98.5 F 74 21 123/67 94 L Room Air 1 03/28/24 07:57 03/28/24 07:57 03/28/24 07:57 03/28/24 07:57 03/28/24 07:57 03/28/24 07:57 03/27/24 13:20 Laboratory Results - last 24 hr 03/28/24 05:30: WBC 10.7, RBC 3.33 L, Hgb 11.3 L, Hct 34.8 L, MCV 104.4 H, MCH 34.0 H, MCHC 32.6, RDW 15.0, Plt Count 172, MPV 9.1, Neut % (Auto) 76.1, Lymph % (Auto) 14.1, [place] % (Auto) 8.6, Eos % (Auto) 0.7, Baso % (Auto) 0.5, Neut # (Auto) 8.2 H, Lymph # (Auto) 1.5, [place] # (Auto) 0.9, Eos # (Auto) 0.1, Baso # (Auto) 0.1, Sodium 136, Potassium 4.4, Chloride 107, Carbon Dioxide 22, Anion Gap 11.4, BUN 40 H, Creatinine 1.30 H, Estimated Creat Clear 44, Estimated GFR 53 L, Est GFR ( Amer) 64, Glucose 106 H, Calcium 8.5 I & O for Last 24 hours: Intake & Output 03/25/24 03/26/24 03/27/24 03/28/24 23:59 23:59 23:59 23:59 Intake Total 645.500 / 645.500 503.125 / 653.125 390 / 390 Output Total 0 / 0 325 / 325 0 / 0 650 / 650 Balance 0 / 240 320.500 / 320.500 503.125 / 653.125 -260 / -260 Weight 155 lb 156 lb 14.4 oz 160 lb 1.6 oz 161 lb 4.8 oz Constitutional Constitutional: no acute distress and cooperative Comments: [place] *Routine HEENT Exam Eye: Present PERRL *Routine Respiratory Exam Respiratory: Present CTA bilaterally; Absent accessory muscle use, wheezes or crackles *Routine Cardiovascular Exam Cardiovascular: Present RRR, Normal S1, Normal S2 and irregular rhythm; Absent murmur, gallop or rubs *Routine Abdominal Exam Abdominal: Present soft; Absent tenderness *Routine Extremities Exam Extremities: Present pulses intact; Absent cyanosis or edema *Routine Skin Exam Skin: Present intact; Absent erythema or wounds *Routine Neurological Exam Neurological: Present alert and oriented X3 Routine Psychiatric Exam Psychiatric: Present cooperative Progress Note: A&P Assessment and plan (1) Atrial fibrillation with RVR: Status: Acute (2) CAD (coronary artery disease): Status: Acute (3) CHELY (acute kidney injury): Status: Acute (4) History of heart attack: Status: Acute (5) Hypertension: Status: Acute (6) Hyperlipidemia: Status: Acute Assessment and Plan Assessment and Plan for All Diagnoses:: 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 - last cath >20 years ago per pt - 1 week of worsening chest pressure occurring at rest, partially relieved with Ntg and now associated with new A-fib and decline in EF - no ST elevation, asymptomatic at this time - [facility] here 03/26/2024: 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 He will need a 2 week monitor and we can consider further attempts at cardioversion as an outpatient. HFrEF - new dx this admission with EF 45% on TTE and LAY - GDMT limited by low BP 80s-90s here. Add Jardiance 10mg. Consider Entresto, Aldactone as outpatient. 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 Alejandra and awaiting to see Dr. Barnes 03/28: Pt is back in A-fib but is rate controlled. No further inpatient CV workup or intervention warranted at this point. He needs a 2 week monitor placed at discharge and he would benefit from cardiac rehab and needs an office visit to f/u with us 2 weeks. CV DC Meds: -Plavix 75 mg 1 p.o. daily -Eliquis 5 mg 1 p.o. twice daily -Atenolol 12.5mg 1 p.o. daily -Amiodarone 400 mg p.o. twice daily x 10 days then 400 mg daily -Pravastatin 80 mg 1 p.o. daily -Imdur 60 mg 1 p.o. daily
[2024-03-28] MEDS: AMIODARONE 200MG TABLET 400 MG PO (09:23)
[2024-03-28] MEDS: ATENOLOL 25MG TABLET 12.5 MG PO (09:24)
[2024-03-28] MEDS: APIXABAN 5MG TABLET 5 MG PO (09:24)
[2024-03-28] MEDS: CLOPIDOGREL 75MG TAB 75 MG PO (09:25)
[2024-03-28] MEDS: ISOSORBIDE MONO 60MG TAB.ER.24H 60 MG PO (09:26)
[2024-03-28] MEDS: EMPAGLIFLOZIN 10MG TABLET 10 MG PO (09:26)
[2024-03-28] MEDS: ACETAMINOPHEN 325MG TAB 650 MG PO (09:46)
--- NOTE | 2024-03-28 10:18 | EXP.DC.SUM ---
General Admission date:: 03/25/24 Discharge date: 03/28/24 HPI HPI HPI: This is a 84-year-old male with a past medical history of CAD status post CABG in 1989 with 8 of her heart attacks with cath since then, also known history of right CEA with chronic left carotid occlusion who presents emergency department today with complaints of chest pain. He states that chest pain began yesterday for which she took several nitro pills for. States that his chest pain was ongoing and felt like his heart was smothering. Decided to seek treatment in the emergency department. On arrival to the emergency department he was noted to have atrial fibrillation with RVR with heart rate in the 120s. He denies any diaphoresis or nausea but did endorse exercise intolerance. He is an 84-year-old male that still works part-time. Emergency department workup notable for atrial fibrillation with RVR. cardiology was consulted on the time of admission and recommend Cardizem drip and further cardiac evaluation. He was able to tolerate 2 doses of Cardizem bolus with drip. At the time of admission heart rate is between 90 and 110 with a stable blood pressure. Hospital Course Hospital Course Hospital Course: patient was admitted for Afib RVR, patient underwent cardioversion and tolerated well, patient is cleared for discharge per cardiology and follow up as OP, patient is discharged in stable condition and verbalized and agreed with the discharge plan Total time spent 38 mints, CV DC Meds: -Plavix 75 mg 1 p.o. daily -Eliquis 5 mg 1 p.o. twice daily -Atenolol 12.5mg 1 p.o. daily -Amiodarone 400 mg p.o. twice daily x 10 days then 400 mg daily -Pravastatin 80 mg 1 p.o. daily -Imdur 60 mg 1 p.o. daily Exam Data for Last 24 hours Vital signs and Labs for Last 24 Hours: Temp Pulse Resp BP Pulse Ox O2 Del Method O2 Flow Rate 98.5 F 80 21 123/67 94 L Room Air 1 03/28/24 07:57 03/28/24 08:00 03/28/24 07:57 03/28/24 07:57 03/28/24 07:57 03/28/24 08:50 03/27/24 13:20 Laboratory Results - last 24 hr 03/28/24 05:30: WBC 10.7, RBC 3.33 L, Hgb 11.3 L, Hct 34.8 L, MCV 104.4 H, MCH 34.0 H, MCHC 32.6, RDW 15.0, Plt Count 172, MPV 9.1, Neut % (Auto) 76.1, Lymph % (Auto) 14.1, [place] % (Auto) 8.6, Eos % (Auto) 0.7, Baso % (Auto) 0.5, Neut # (Auto) 8.2 H, Lymph # (Auto) 1.5, [place] # (Auto) 0.9, Eos # (Auto) 0.1, Baso # (Auto) 0.1, Sodium 136, Potassium 4.4, Chloride 107, Carbon Dioxide 22, Anion Gap 11.4, BUN 40 H, Creatinine 1.30 H, Estimated Creat Clear 44, Estimated GFR 53 L, Est GFR ( Amer) 64, Glucose 106 H, Calcium 8.5 I & O for Last 24 hours: Intake & Output 03/25/24 03/26/24 03/27/24 03/28/24 23:59 23:59 23:59 23:59 Intake Total 645.500 / 645.500 503.125 / 653.125 390 / 390 Output Total 0 / 0 325 / 325 0 / 0 650 / 650 Balance 0 / 240 320.500 / 320.500 503.125 / 653.125 -260 / -260 Weight 70.307 kg 71.169 kg 72.62 kg 73.164 kg Constitutional Constitutional: no acute distress *Routine HEENT Exam Head: Present normocephalic Eye: Present EOMI and PERRL ENT: Present mucous membranes moist *Routine Neck Exam Neck: Present supple; Absent lymphadenopathy *Routine Respiratory Exam Respiratory: Present CTA bilaterally *Routine Cardiovascular Exam Cardiovascular: Present RRR *Routine Abdominal Exam Abdominal: Present soft and normoactive bowel sounds; Absent tenderness *Routine Extremities Exam Extremities: Absent cyanosis, clubbing or edema *Routine Skin Exam Skin: Present warm; Absent rash *Routine Neurological Exam Neurological: Present alert and oriented X3 Results Data Completed and Pending Labs on day of discharge: Labs from last 24 hours 03/28/24 05:30 WBC 10.7 RBC 3.33 L Hgb 11.3 L Hct 34.8 L MCV 104.4 H MCH 34.0 H MCHC 32.6 RDW 15.0 Plt Count 172 MPV 9.1 Neut % (Auto) 76.1 Lymph % (Auto) 14.1 [place] % (Auto) 8.6 Eos % (Auto) 0.7 Baso % (Auto) 0.5 Neut # (Auto) 8.2 H Lymph # (Auto) 1.5 [place] # (Auto) 0.9 Eos # (Auto) 0.1 Baso # (Auto) 0.1 Sodium 136 Potassium 4.4 Chloride 107 Carbon Dioxide 22 Anion Gap 11.4 BUN 40 H Creatinine 1.30 H Estimated Creat Clear 44 Estimated GFR 53 L Est GFR ( Amer) 64 Glucose 106 H Calcium 8.5 DS: Diagnosis Discharge Diagnosis (1) Atrial fibrillation with RVR: Status: Acute Code(s): I48.91 - Unspecified atrial fibrillation (2) CAD (coronary artery disease): Status: Acute Code(s): I25.10 - Atherosclerotic heart disease of ambler coronary artery without angina pectoris (3) CHELY (acute kidney injury): Status: Acute Code(s): N17.9 - Acute kidney failure, unspecified (4) History of heart attack: Status: Acute Code(s): I25.2 - Old myocardial infarction (5) Hypertension: Status: Acute Code(s): I10 - Essential (primary) hypertension Qualifiers: Hypertension type: primary hypertension Qualified Code(s): I10 - Essential (primary) hypertension (6) Hyperlipidemia: Status: Acute Code(s): E78.5 - Hyperlipidemia, unspecified Qualifiers: Hyperlipidemia type: mixed hyperlipidemia Qualified Code(s): E78.2 - Mixed hyperlipidemia Meds Home Medications and Allergies Home Medications Medication Instructions Recorded Confirmed Type clopidogrel 75 mg tablet 75 mg PO DAILY 03/25/24 03/25/24 History methocarbamol 750 mg tablet 750 mg PO QIDP PRN muscle spasm 03/25/24 03/25/24 History nitroglycerin 0.4 mg sublingual 0.4 mg sublingual Q5MINP PRN Chest 03/25/24 03/25/24 History tablet Pain oxycodone-acetaminophen 5 mg-325 1 tab PO QIDP PRN Moderate Pain 03/25/24 03/25/24 History mg tablet (Scale Score 5-6) pravastatin 80 mg tablet 80 mg PO DAILY 03/25/24 03/25/24 History amiodarone 200 mg tablet 400 mg (2 x 200 mg) PO BID 30 days 03/28/24 Rx #120 tabs apixaban 5 mg tablet (Eliquis) 5 mg PO BID 30 days #60 tabs 03/28/24 Rx atenolol 25 mg tablet 12.5 mg (1/2 x 25 mg) PO DAILY 30 03/28/24 Rx days #15 tabs empagliflozin 10 mg tablet 10 mg PO DAILY 30 days #30 tabs 03/28/24 Rx (Jardiance) isosorbide mononitrate 60 mg 60 mg PO DAILY 30 days #30 tabs 03/28/24 Rx tablet,extended release 24 hr pantoprazole 40 mg tablet,delayed 40 mg PO HS 30 days #30 tabs 03/28/24 Rx release New Prescriptions to Start Prescriptions: amiodarone Alex,Irfan apixaban [Eliquis] Alex,Irfan atenolol Alex,Irfan empagliflozin [Jardiance] [facility]onit[facility] Alex,Irfan pantoprazole Alex,Irfan Allergies Allergy/AdvReac Type Severity Reaction Status Date / Time No Known Allergies Allergy Verified 01/22/24 13:15 Discharge Plan Disposition Patient Disposition: Home, Self-Care Condition: Good Discharge Order Discharge Orders: Discharge Order (Routine); Ordered 03/28/24 Ordered By: Stan Johnson Follow up Plan Follow up with: Israel Perry MD [Staff Physician] - 04/03/24 11:15 am Leandro Person MD [Staff Physician] - 04/08/24 2:45 pm Prescriptions/Medication Reconciliation: New amiodarone 200 mg Tablet 400 mg PO BID 30 Days Qty: 120 0RF atenolol 25 mg Tablet 12.5 mg PO DAILY 30 Days Qty: 15 0RF isosorbide mononitrate 60 mg Tablet Extended Release 24 Hr 60 mg PO DAILY 30 Days Qty: 30 0RF pantoprazole 40 mg Tablet,Delayed Release (Dr/Ec) 40 mg PO HS 30 Days Qty: 30 0RF Eliquis 5 mg Tablet 5 mg PO BID 30 Days Qty: 60 0RF Jardiance 10 mg Tablet 10 mg PO DAILY 30 Days Qty: 30 0RF Continued oxycodone-acetaminophen 5-325 mg tablet 1 tab PO QIDP PRN (Reason: Moderate Pain (Scale Score 5-6)) clopidogrel 75 mg tablet 75 mg PO DAILY pravastatin 80 mg tablet 80 mg PO DAILY methocarbamol 750 mg tablet 750 mg PO QIDP PRN (Reason: muscle spasm) nitroglycerin 0.4 mg tablet, sublingual 0.4 mg sublingual Q5MINP PRN (Reason: Chest Pain) Discontinued aspirin [Adult Low Dose Aspirin] 81 mg tablet,delayed release (DR/EC) 81 mg PO DAILY Qty: 90 2RF isosorbide dinitrate 10 mg tablet 10 mg PO DAILY atenolol 25 mg tablet 25 mg PO DAILY lisinopril 10 mg tablet 10 mg PO DAILY Problem Reconciliation Problems Reviewed?: Yes Patient Discharge Instructions ACTIVITY: Ambulate as tolerated DIET: continue same diet Patient Instructions: Atrial Fibrillation, DI for Cardiac Catheterization, DI for Cardioversion, DI for Surgical Site Infection Providers Primary Care Provider: Marianne Perry [facility] Admit Provider: Stan Johnson Attending Provider: Stan Johnson
--- NOTE | 2024-03-28 11:12 | PC.NURSE ---
RESP CARE NOTE: 2 week cardiac event monitor placed on patient, and instruction given to , daughter, and patient.
--- NOTE | 2024-03-31 14:41 | CARE MANAGER ---
Contacted patient and . They state he is doing well. The only issue they've had is his medication was too expensive. They will speak with cardiology about this at his appointment. Deny any other questions or concerns at this time. JHONATAN Hernandez
== END 2024-03-28 11:41 | disposition home or self-care (01) | DRG 287 ==
LOC: ER 17:35 → 2ND 18:01
PROVIDERS: Emergency Medicine; Internal Medicine; Nurse Practitioner Acute Care; Admitting Provider Internal Medicine; Emergency Provider Emergency Medicine; PCP Family Medicine; Visit Provider Internal Medicine
PROC: 4A023N7 Measurement of Cardiac Sampling and Pressure, Left Heart, Percutaneous Approach (ICD-10-PCS; principal; 2024-03-26 12:00)
PROC: 5A2204Z Restoration of Cardiac Rhythm, Single (ICD-10-PCS; principal; 2024-03-27 12:00)
DX: I48.91 Unspecified atrial fibrillation (principal); I25.110 Atherosclerotic heart disease of native coronary artery with unstable angina pectoris; N17.9 Acute kidney failure, unspecified; I50.20 Unspecified systolic (congestive) heart failure; I25.2 Old myocardial infarction; E78.5 Hyperlipidemia, unspecified; Z95.1 Presence of aortocoronary bypass graft; G89.29 Other chronic pain; I11.0 Hypertensive heart disease with heart failure; I50.9 Heart failure, unspecified; M50.90 Cervical disc disorder, unspecified, unspecified cervical region; I08.1 Rheumatic disorders of both mitral and tricuspid valves; Z86.73 Personal history of transient ischemic attack (TIA), and cerebral infarction without residual deficits
CPT/HCPCS: 92960; 36252; 36415; 71045; 71275; 80048; 80053; 80061; 83735; 83880; 84436; 84443; 84484; 85025; 85378; 85610; 85730; 93005; 93270; 93306; 93312; 93319; 93452; 99152; 99291; C1725; C1769; C1894; J1644; Q9957; Q9967

== ENCOUNTER 2024-06-04 10:43 | Outpatient (POV) | payer MEDICARE, OTHER, SELFPAY ==
--- NOTE | 2024-06-04 11:16 | A.OFFVIS_ITS ---
HPI Data of Consult Patient: new to practice Consult date: 06/04/24 Requesting Physician: Honey Cooper APRN Primary Care Provider: [facility] Consult Narrative Reason for consult: Low back pain, bilateral hip pain History of present illness: Mr. Yanez is a 84 year old male who presents today as a new patient. He is a referral from Aime Jung's office. Today he rates his pain a 10/10. Patient does state that he has had chronic back pain however its never been as severe as it is currently. Patient states that this has been going on since before February. He states that the pain is so severe he has trouble walking. Patient does state he relies on a cane for extra support. Patient states that the pain is affecting his eating and sleeping habits. Patient denies any radiating pain into his legs. He does state that it is constant and interferes with his ability to perform activities of daily living such as cooking and cleaning. Patient denies any prior surgery or injection history. He has been to neurosurgery who stated he was not a surgical candidate and recommended conservative treatment such as injections. Patient has tried products such as Tylenol, heat and ice and topicals with minimal relief. Patient does have heart and kidney history.Patient is currently managed with diazepam and has been prescribed Percocet in the past from his PCP. His Janusz has been reviewed and is appropriate. CC: Honey Cooper APRN [facility] Disclaimer: The information contained in this section may have been updated after the patient was seen, as this information can be updated by other users. Medical History (Updated 06/04/24 @ 11:37 by Honey Cooper APRN) Neck pain Abnormal electrocardiogram [ECG] [EKG] Stenosis of carotid artery Coronary artery disease History of heart attack History of stroke Hyperlipidemia Hypertension Hypertension Surgical History History of coronary artery bypass graft History of right-sided carotid endarterectomy History of coronary artery stent placement History of incision and drainage History of surgery on lower extremity History of open heart surgery Family History Other Family history of myocardial infarction Social History Smoking Status: Unknown if ever smoked alcohol intake: current alcohol intake frequency: a few times a week substance use type: denies use current occupational status: retired Travel in the last 8 weeks: None household members: spouse housing: house 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 current occupational exposures/hazards: No caffeine: Yes Review of Systems Review of Systems Review of systems:: pertinent systems reviewed and negative unless documented below Review of systems (narrative): Review of Systems: General: No recent weight changes, no fever, no sleep disturbances Respiratory: No cough, no shortness of air, no recurring pulmonary infections Cardiovascular/peripheral vascular: No chest pain, no palpitations, no edema, no shortness of breath Gastrointestinal: No new onset incontinence, normal bowel movements reported Genitourinary: No new onset incontinence Musculoskeletal: [Low back pain, bilateral hip pain Psychiatric: [Normal mood/affect] Neurological: [Denies weakness in extremities], [denies balance issues] Meds Home Medications and Allergies Home Medications ?Medication ?Instructions ?Recorded ?Confirmed ?Type methocarbamol 750 mg tablet 750 mg PO QIDP PRN muscle spasm 03/25/24 05/08/24 History nitroglycerin 0.4 mg sublingual 0.4 mg sublingual Q5MINP PRN Chest 03/25/24 05/08/24 History tablet Pain oxycodone-acetaminophen 5 mg-325 1 tab PO QIDP PRN Moderate Pain 03/25/24 05/08/24 History mg tablet (Scale Score 5-6) pravastatin 80 mg tablet 80 mg PO DAILY 03/25/24 05/08/24 History amiodarone 400 mg tablet 400 mg PO DAILY #30 tabs 03/28/24 05/08/24 Rx atenolol 25 mg tablet 12.5 mg (1/2 x 25 mg) PO DAILY 30 03/28/24 05/08/24 Rx days #15 tabs isosorbide mononitrate 60 mg 60 mg PO DAILY 30 days #30 tabs 03/28/24 05/08/24 Rx tablet,extended release 24 hr pantoprazole 40 mg tablet,delayed 40 mg PO HS 30 days #30 tabs 03/28/24 05/08/24 Rx release empagliflozin 10 mg tablet 10 mg PO DAILY #30 tabs 04/24/24 05/08/24 Rx (Jardiance) furosemide 40 mg tablet (Lasix) 80 mg (2 x 40 mg) PO DAILY PRN 04/24/24 05/08/24 Rx edema #30 tabs apixaban 5 mg tablet (Eliquis) 5 mg PO BID 30 days #60 tabs 05/29/24 Rx New Prescriptions to Start Prescriptions: Allergies Allergy/AdvReac Type Severity Reaction Status Date / Time No Known Allergies Allergy Verified 05/08/24 09:24 Objective Narrative: Physical Exam: General: Alert and oriented x3, no acute distress, pleasant and cooperative Lungs: Respirations even and unlabored, symmetrical chest expansion Eyes: PERRL Musculoskeletal: Flexion and extension of lumbar [spine] somewhat guarded secondary to pain, [antalgic gait noted] point tenderness along bilateral SIs with positive bilateral Dimitris's, Stephon's, Gaenslen's, compression and distraction exam Neurological: Speech clear, no gross sensory deficit Additional findings Additional findings: Lumbar MRI without contrast March 13, 2022: Findings: Multiple sequences are degraded by motion. There are 5 lumbar-type vertebral bodies or membranes and assumes 5 lumbar type vertebral bodies the last fully formed disc space on series XX image XX is labeled L5-S1. Spinal cord terminates at L1 and has normal signal. Nerve roots of the cauda equina are normal in morphology. There is degenerative grade 1 anterolisthesis of L4 over L5. Vertebral body heights are maintained. No concerning marrow signal. Multilevel disc desiccation. T12-L1: Maintained disc height without herniation or disc bulge. No canal or foraminal stenosis. Mild facet arthrosis L1-L2: Maintained disc height without herniation or bulge. No canal or foraminal stenosis. Mild facet arthrosis L2-L3: Mild disc height loss and shallow asymmetric right disc bulge. No significant canal or foraminal stenosis. Mild facet arthrosis. L3-L4: Moderate disc height loss and symmetric disc osteophyte complex resulting in mild bilateral foraminal stenosis. No canal stenosis. Mild to moderate facet arthrosis L4-L5: Mild disc height loss with disc space unroofing due to anterior listhesis and asymmetric right disc bulge. Bulking abnormal signal at the right extraforaminal zone extending to the disc level of the L4 intrapedicular level with contact of the transversing right L4 nerve. There is mild right foraminal stenosis. There is no significant canal or left foraminal stenosis. Moderate facet arthrosis L5-S1: Maintained disc height without herniation or bulge. No canal or foraminal stenosis. Moderate facet arthrosis. Mild chronic and symmetric paraspinal muscle atrophy. Faint paraspinal muscular edema. Infrarenal abdominal aortic aneurysm measures 3.1 cm Assessment and Plan *Assessment and plan (1) Degenerative disc disease, lumbar: Status: Acute Category: Medical Code(s): M51.36 - Other intervertebral disc degeneration, lumbar region (2) Lumbar facet arthropathy: Status: Acute Category: Medical Code(s): M47.816 - Spondylosis without myelopathy or radiculopathy, lumbar region (3) Lumbar stenosis: Status: Acute Qualifiers: Neurogenic claudication status: unspecified Qualified Code(s): M48.061 - Spinal stenosis, lumbar region without neurogenic claudication Category: Medical Code(s): M48.061 - Spinal stenosis, lumbar region without neurogenic claudication (4) Lumbar spondylosis: Status: Acute Category: Medical Code(s): M47.816 - Spondylosis without myelopathy or radiculopathy, lumbar region (5) Bilateral sacroiliitis: Status: Acute Category: Medical Code(s): M46.1 - Sacroiliitis, not elsewhere classified Plan Patient is experiencing worsening pain throughout his low back and hips. Patient did have extreme point tenderness along his bilateral SIs with positive bilateral Dimitris's, Stephon's, Gaenslen's, compression and distraction exam. I have discussed with patient that he may benefit from bilateral SI injections. Risk and benefits were discussed with patient and he would like to proceed forward with this plan of care. Patient has tried and failed conservative treatment including oral medication, heat and ice, topicals, chiropractor therapy, continued at home stretching exercise for longer than 12 weeks. We will schedule the patient for bilateral SI injections under fluoroscopy. Patient has been instructed to contact the clinic with any concerns before the next appointment. Dr. Barnes has reviewed this note and agrees with this plan of care. This note was dictated using voice recognition software and make contain errors or omissions.
[2024-06-04 11:24] VITALS: BP 128/58; PULSE 92; RESP 18; O2SAT 97; BMI 22.1
== END 2024-06-04 23:59 | disposition home or self-care (01) ==
LOC: SC.PAIN 10:44
PROVIDERS: PCP Family Medicine; Visit Provider Nurse Practitioner Family
DX: M51.36 Other intervertebral disc degeneration, lumbar region (principal); M47.816 Spondylosis without myelopathy or radiculopathy, lumbar region; M48.061 Spinal stenosis, lumbar region without neurogenic claudication; M46.1 Sacroiliitis, not elsewhere classified; G89.29 Other chronic pain
CPT/HCPCS: 99202; G0463

== ENCOUNTER 2024-06-17 09:53 | Day surgery (SDC) | payer MEDICARE, OTHER, SELFPAY ==
[2024-06-17 10:10] VITALS: BP 125/67; PULSE 96; RESP 16; TEMP 36.2; O2SAT 98; BMI 21.4
[2024-06-17] MEDS: methylPREDNISolone ACETATE 80MG/ML VIAL 80 MG (10:18)
[2024-06-17] MEDS: LIDOCAINE 1% 5ML PF VIAL 5 ML (10:18)
[2024-06-17] MEDS: BUPIVACAINE 0.25% 10ML INJ 25 MG IJ (10:18)
--- NOTE | 2024-06-17 10:23 | P.PCN_ITS ---
Procedure Date: 06/17/24 Time: 10:15 Anesthesiologist:: Jake Marlow CRNA Complications:: None Pre-procedure Diagnosis:: Bilateral sacroiliitis Post-procedure Diagnosis:: Same. Indications for Procedure:: Patient is a 84-year-old male who comes our clinic today for bilateral sacroiliac joint injections of cortisone. Patient describes low lumbar back pain off midline bilaterally is constant, dull, aching. He rates his pain 10/10. He reports difficulty transitioning from sitting to standing. Procedure Details:: Procedure: Bilateral sacroiliac joint injections under fluoroscopy Informed consent was obtained and the risks and benefits of the procedure were explained to the patient.~ The patient was taken to the procedure room and noninvasive monitors were placed including a noninvasive blood pressure cuff and pulse oximeter.~ The patient was placed prone on the procedure table. Both hips were cleansed using Betadine as a cleansing solution. C-arm fluoroscopy was used to view the right sacroiliac joint.~ The skin and subcutaneous tissues were anesthetized using lidocaine 1.5% and a 25-gauge needle.~ After this, a 22-gauge spinal needle was inserted under fluoroscopic guidance into the inferior aspect of the right sacroiliac joint.~ Omnipaque dye was injected and good spread was seen throughout the joint.~ After this, approximately 5 mL of bupivacaine, 0.25% and Depo-Medrol, 40 mg was incrementally injected into the right sacroiliac joint. We then moved to the left sacroiliac joint.~ The skin and subcutaneous tissues were anesthetized using lidocaine 1.5% and a 25-gauge needle.~ After this, a 22- gauge spinal needle was inserted under fluoroscopic guidance into the inferior aspect of the left sacroiliac joint.~ Omnipaque dye was injected and good spread was seen throughout the joint. After this, approximately 5 mL of bupivacaine, 0.25% and Depo-Medrol, 40 mg was incrementally injected into the left sacroiliac joint.~ The patient tolerated the procedure well with no complications. The patient was observed in the Pain Clinic and then was discharged home neurologically intact. Plan and Disposition:: Patient was discharged without incident.
[2024-06-17 10:25] VITALS: BP 120/70; PULSE 80; RESP 18; O2SAT 98
== END 2024-06-17 10:25 | disposition home or self-care (01) ==
PROVIDERS: PCP Family Medicine; Visit Provider Nurse Anesthetist, Certified Registered
DX: M46.1 Sacroiliitis, not elsewhere classified (principal)
CPT/HCPCS: 27096; G0260; J1010

== ENCOUNTER 2024-07-03 09:54 | Outpatient (POV) | payer MEDICARE, OTHER, SELFPAY ==
--- NOTE | 2024-07-03 11:30 | A.OFFVIS_ITS ---
[facility] Disclaimer: The information contained in this section may have been updated after the patient was seen, as this information can be updated by other users. Medical History Neck pain Abnormal electrocardiogram [ECG] [EKG] Stenosis of carotid artery Coronary artery disease History of heart attack History of stroke Hyperlipidemia Hypertension Hypertension Surgical History History of coronary artery bypass graft History of right-sided carotid endarterectomy History of coronary artery stent placement History of incision and drainage History of surgery on lower extremity History of open heart surgery Family History Other Family history of myocardial infarction Social History Smoking Status: Unknown if ever smoked alcohol intake: current alcohol intake frequency: a few times a week substance use type: denies use current occupational status: retired Travel in the last 8 weeks: None household members: spouse housing: house current occupation: [employer] current occupational exposures/hazards: No caffeine: Yes PM Subjective & Objective Subjective Subjective:: Patient is a pleasant 84-year-old male who presents today for follow-up of bilateral SI injections on 06/17/2024. Today he rates his pain a 10 out of 10. Patient does state that he did get significant improvement of upwards of 100% relief however only lasted 24 to 48 hours. He does state that he is back to his baseline today and denies any new falls or injuries. Patient does state he continues to have pain throughout his back and denies any radiating symptoms into his legs. He does state that he feels like his hips are constantly hurting and affect his walking. Patient does state that he also has pain from his neck down. Patient states he cannot remember if following this injection he had significant relief in his mid back and neck. Patient is interested in any help we may be able to provide. Patient is currently managed with diazepam from his PCP and has had Percocet in the past. His Janusz has been reviewed and is appropriate. Review of Systems: General: No recent weight changes, no fever, no sleep disturbances Respiratory: No cough, no shortness of air, no recurring pulmonary infections Cardiovascular/peripheral vascular: No chest pain, no palpitations, no edema, no shortness of breath Gastrointestinal: No new onset incontinence, normal bowel movements reported Genitourinary: No new onset incontinence Musculoskeletal: Low back pain, hip pain Psychiatric: [Normal mood/affect] Neurological: [Denies weakness in extremities], [denies balance issues] Pain at rest (0-10 scale): 10 Objective Objective:: Physical Exam: General: Alert and oriented x3, no acute distress, pleasant and cooperative Lungs: Respirations even and unlabored, symmetrical chest expansion Eyes: PERRL Musculoskeletal: Flexion and extension of lumbar [spine] somewhat guarded secondary to pain, [antalgic gait noted] positive Kemps test Neurological: Speech clear, no gross sensory deficit Has patient had previous pain injection?: Yes Percent improvement in pain since last injection: 100% Conservative treatment options previously tried: Prescription medications Length of treatment: Longer than 6 weeks Meds Home Medications and Allergies Home Medications ?Medication ?Instructions ?Recorded ?Confirmed ?Type methocarbamol 750 mg tablet 750 mg PO QIDP PRN muscle spasm 03/25/24 06/17/24 History nitroglycerin 0.4 mg sublingual 0.4 mg sublingual Q5MINP PRN Chest 03/25/24 06/17/24 History tablet Pain oxycodone-acetaminophen 5 mg-325 1 tab PO QIDP PRN Moderate Pain 03/25/24 06/17/24 History mg tablet (Scale Score 5-6) pravastatin 80 mg tablet 80 mg PO DAILY 03/25/24 06/17/24 History amiodarone 400 mg tablet 400 mg PO DAILY #30 tabs 03/28/24 06/17/24 Rx atenolol 25 mg tablet 12.5 mg (1/2 x 25 mg) PO DAILY 30 03/28/24 06/17/24 Rx days #15 tabs isosorbide mononitrate 60 mg 60 mg PO DAILY 30 days #30 tabs 03/28/24 06/17/24 Rx tablet,extended release 24 hr pantoprazole 40 mg tablet,delayed 40 mg PO HS 30 days #30 tabs 03/28/24 06/17/24 Rx release empagliflozin 10 mg tablet 10 mg PO DAILY #30 tabs 04/24/24 06/17/24 Rx (Jardiance) apixaban 5 mg tablet (Eliquis) 5 mg PO BID 30 days #60 tabs 07/18/24 08/06/24 Rx furosemide 40 mg tablet See Rx Instructions .Route 06/16/24 06/17/24 Rx .COMPLEX #180 tabs methocarbamol 750 mg tablet 750 mg PO TID PRN muscle pain #42 07/03/24 Rx tabs New Prescriptions to Start Prescriptions: methocarbamol [facility] Allergies Allergy/AdvReac Type Severity Reaction Status Date / Time No Known Allergies Allergy Verified 05/08/24 09:24 Assessment and Plan *Assessment and plan (1) Lumbar facet arthropathy: Status: Acute Category: Medical Code(s): M47.816 - Spondylosis without myelopathy or radiculopathy, lumbar region (2) Lumbar stenosis: Status: Acute Qualifiers: Neurogenic claudication status: unspecified Qualified Code(s): M48.061 - Spinal stenosis, lumbar region without neurogenic claudication Category: Medical Code(s): M48.061 - Spinal stenosis, lumbar region without neurogenic claudication (3) Lumbar spondylosis: Status: Acute Category: Medical Code(s): M47.816 - Spondylosis without myelopathy or radiculopathy, lumbar region (4) Degenerative disc disease, lumbar: Status: Acute Category: Medical Code(s): M51.36 - Other intervertebral disc degeneration, lumbar region Plan Patient continues to experience significant pain throughout his low back with limited range of motion and a positive Kemps test. Patient did even have point tenderness along his lower lumbar spine during today's visit. I did discuss with patient that he may benefit from lumbar medial branch blocks bilaterally. Risk and benefits were discussed with patient and he would like to proceed forward with this plan of care. Patient has tried and failed conservative therapy including continued at home stretching exercise for longer than 6 weeks. Patient is not a candidate for surgery. He will be submitted for a lumbar medial branch block bilaterally L4-L5 and L5-S1 under fluoroscopy. If he does get significant relief we will proceed forward with a repeat block in the future as well as possible lumbar RFA. Patient is currently on blood thinners and we will reach out to Dr. Person's office to confirm he can stop this medication prior to this injection. I will also send in a temporary prescription of methocarbamol 750 mg 3 times daily as needed. Patient has been instructed to contact the clinic with any concerns before the next appointment. Dr. Barnes has reviewed this note and agrees with this plan of care. This note was dictated using voice recognition software and make contain errors or omissions. All injections are used with Lidocaine or Bupivacaine and Depo Medrol.
[2024-07-03 12:20] VITALS: BP 100/59; PULSE 106; RESP 16; O2SAT 97; BMI 22.6
== END 2024-07-03 23:59 | disposition home or self-care (01) ==
PROVIDERS: PCP Family Medicine; Visit Provider Nurse Practitioner Family
DX: M47.816 Spondylosis without myelopathy or radiculopathy, lumbar region (principal); M48.061 Spinal stenosis, lumbar region without neurogenic claudication; M51.36 Other intervertebral disc degeneration, lumbar region; I25.10 Atherosclerotic heart disease of native coronary artery without angina pectoris; I25.2 Old myocardial infarction; I10 Essential (primary) hypertension; Z95.1 Presence of aortocoronary bypass graft; Z95.5 Presence of coronary angioplasty implant and graft; Z86.73 Personal history of transient ischemic attack (TIA), and cerebral infarction without residual deficits; Z79.01 Long term (current) use of anticoagulants
CPT/HCPCS: 99212; G0463

== ENCOUNTER 2024-08-05 10:37 | Emergency (ER) | payer MEDICARE, OTHER, SELFPAY ==
[2024-08-05] VITALS (11 sets, daily range): BP systolic 95–133; BP diastolic 69–89; PULSE 90–125; RESP 13–22; TEMP 36.6; O2SAT 97–100; BMI 23.9
--- NOTE | 2024-08-05 10:40 | ECG_ITS ---
APPROVED REPORT Exam: Resting ECG HR:87 bpm ECG Measurements Heart Rate 87 AXES QRSd 109 QRS 68 QT 392 T 266 QTc [address] DEVIATION AND MODERATE T-WAVE ABNORMALITY, CONSIDER INFERIOR ISCHEMIA [-0.1+ mV T-WAVE IN II/aVF] ABNORMAL ECG UNCONFIRMED REPORT Electronically signed by : Anthony Nuñez, 08/05/2024 15:29:49
--- NOTE | 2024-08-05 10:49 | CT_ITS ---
FINAL REPORT CLINICAL HISTORY: RUE/RLE weakness CP since 07/24/24 COMPARISON: None FINDINGS: CTA HEAD TECHNIQUE: Thin section axial CT with contrast with 3D MIP reconstruction This study was performed with techniques to keep radiation doses as low as reasonably achievable, (ALARA). Individualized dose reduction techniques using automated exposure control or adjustment of mA and/or kV according to the patient's size were employed. The distal right ICA is widely patent. There is reconstitution of the distal cavernous left ICA through the ophthalmic and posterior communicating arteries. Absence of some left MCA branches corresponds to known chronic infarct. Basilar artery and posterior cerebral arteries are widely patent. 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 Chronic left MCA disease. This study was performed using automated techniques to achieve radiation exposure as low as reasonably achievable Reviewed, Interpreted and Dictated by Aline Ortega MD Transcribed by Lydia Wei Authenticated and [facility]
--- NOTE | 2024-08-05 10:49 | CT_ITS ---
FINAL REPORT CLINICAL HISTORY: RUE/RLE weakness CP since 07/24/24 COMPARISON: None FINDINGS: CT NECK ANGIO, WITHOUT AND WITH CONTRAST TECHNIQUE: Thin section axial CT with contrast with multiplanar 3D MIP reconstruction. This study was performed with techniques to keep radiation doses as low as reasonably achievable, (ALARA). Individualized dose reduction techniques using automated exposure control or adjustment of mA and/or kV according to the patient's size were employed. NASCET criteria and technique was utilized during interpretation. Aortic arch: Arch shows no significant narrowing. Great vessel origins are widely patent. Right carotid: No significant stenosis is seen of the cervical common or internal carotid artery. Left carotid: There is chronic appearing long segment occlusion of the entire left cervical ICA. Occlusion extends into the skull base portion of the ICA. Vertebrals: Right vertebral artery is dominant. Widely patent without significant stenosis. 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 Right carotid bifurcation widely patent. This study was performed using automated techniques to achieve radiation exposure as low as reasonably Reviewed, Interpreted and Dictated by Aline Ortega MD Transcribed by Lydia Wei Authenticated and . [facility]
--- NOTE | 2024-08-05 10:49 | CT_ITS ---
FINAL REPORT TECHNIQUE: Thin section axial CT with contrast with multiplanar reconstruction This study was performed with techniques to keep radiation doses as low as reasonably achievable, (ALARA). Individualized dose reduction techniques using automated exposure control or adjustment of mA and/or kV according to the patient''s size were employed. CLINICAL HISTORY: RUE/RLE weakness CP since 07/24/24 FINDINGS: The thoracic aorta shows mild diffuse plaque disease. There is no evidence of pulmonary embolism. The great vessel origins are widely patent. There is mild dependent atelectasis of the lower lobes. Tiny right and small to moderate left effusions are identified. Rounded atelectasis of the lower lobes is stable from prior. There is no significant pericardial effusion. Mild right paratracheal adenopathy measures 13 mm, unchanged. Upper right paratracheal adenopathy measures 18 x 9 mm is unchanged. Right thoracic inlet adenopathy is unchanged. IMPRESSION: Small pleural effusions are nonspecific but could be related to CHF. Chronic lung changes with mild adenopathy, stable. Reviewed, Interpreted and Dictated by Aline Ortega MD Transcribed by Shanda Huizar Authenticated and [facility]
--- NOTE | 2024-08-05 10:49 | CT_ITS ---
FINAL REPORT TECHNIQUE: Noncontrast exam. This study was performed with techniques to keep radiation doses as low as reasonably achievable (ALARA). Individualized dose reduction techniques using automated exposure control or adjustment of mA and/or kV according to the patient's size were employed. This study was performed with techniques to keep radiation doses as low as reasonably achievable, (ALARA). Individualized dose reduction techniques using automated exposure control or adjustment of mA and/or kV according to the patient''s size were employed. CLINICAL HISTORY: RUE/RLE weakness CP since 07/24/24 FINDINGS: There is moderate generalized atrophy. No cortical edema is present. There is an old left frontal infarct with encephalomalacia. There is no mass or hemorrhage. Ventricles are normal. Bone windows show no skull fracture or obvious obstructive lesion. IMPRESSION: 1. No acute intracranial abnormality or obvious mass. Reviewed, Interpreted and Dictated by Aline Ortega MD Transcribed by Shanda Huizar Authenticated and [facility]
--- NOTE | 2024-08-05 10:53 | ED_ITS ---
Discharge Plan Disposition Patient Disposition: Xfer Other Chief Complaint: Chest Pain Prescriptions Prescriptions: No Action furosemide 40 mg tablet See Rx Instructions .ROUTE .COMPLEX Qty: 180 3RF Dose Instruction: TAKE 2 TABLETS EACH DAY FOR SWELLING Rx Instructions: TAKE 2 TABLETS EACH DAY FOR SWELLING pravastatin 80 mg tablet 80 mg PO DAILY nitroglycerin 0.4 mg tablet, sublingual 0.4 mg sublingual Q5MINP PRN (Reason: Chest Pain) atenolol 25 mg Tablet 12.5 mg PO DAILY 30 Days Qty: 15 0RF isosorbide mononitrate 60 mg Tablet Extended Release 24 Hr 60 mg PO DAILY 30 Days Qty: 30 0RF pantoprazole 40 mg Tablet,Delayed Release (Dr/Ec) 40 mg PO HS 30 Days Qty: 30 0RF methocarbamol 750 mg tablet 750 mg PO TID PRN (Reason: muscle pain) Qty: 42 0RF Referrals Follow up/Referrals: Provider,Referral, MD [Primary Care Provider] - See instructions Clinical Impressions Clinical Impression: CVA (cerebral vascular accident), Acute right-sided weakness, ACS (acute coronary syndrome), Occlusion of left internal carotid artery Print Language Print Language: Indonesian Discharge ED Provider: Prakash Nuñez HPI General Chief Complaint: Chest Pain Stated Complaint: cp Time Seen by Provider: 08/05/24 10:38 History of Present Illness HPI narrative: Patient is an 84-year-old male with a history of extensive coronary disease who is status post CABG as well as numerous stents placed in the past. Most recent left heart cath was in March 2024 had 2 out of 3 grafts were occluded and severe left main disease was treated with medical management. His last stent was greater than 20 years ago per the patient. He has a history of heart failure with reduced ejection fraction ejection fraction was 45% and March of this year. He also has a history of atrial fibrillation on Eliquis. Has a history of a stroke had a carotid endarterectomy on the right symptoms at that time were speech alone he had no motor deficits in his extremities. Further history is obtained from his daughter as well as his are at the bedside as well as from the patient. [place] extremely dys[place]neic had significant chest pain became very diaphoretic sat in his truck until symptoms resolved and did not tell anybody about that until today. He has felt very poor since that time and also had increased weakness in his right upper extremity and right lower extremity which are new. Currently without any chest pain most recent episode of chest pain with earlier this morning that was resolved with nitroglycerin. Went to cardiology clinic and they called Dr. Luna for direct admission but he advised the patient come to the emergency department. Related Data Home Medications ?Medication ?Instructions ?Recorded ?Confirmed nitroglycerin 0.4 mg sublingual 0.4 mg sublingual Q5MINP PRN Chest 03/25/24 08/05/24 tablet Pain pravastatin 80 mg tablet 80 mg PO DAILY 03/25/24 08/05/24 Previous Rx's ?Medication ?Instructions ?Recorded atenolol 25 mg tablet 12.5 mg (1/2 x 25 mg) PO DAILY 30 03/28/24 days #15 tabs isosorbide mononitrate 60 mg 60 mg PO DAILY 30 days #30 tabs 03/28/24 tablet,extended release 24 hr pantoprazole 40 mg tablet,delayed 40 mg PO HS 30 days #30 tabs 03/28/24 release furosemide 40 mg tablet See Rx Instructions .Route 06/16/24 .COMPLEX #180 tabs methocarbamol 750 mg tablet 750 mg PO TID PRN muscle pain #42 07/03/24 tabs Allergies Allergy/AdvReac Type Severity Reaction Status Date / Time No Known Allergies Allergy Verified 08/05/24 10:58 [facility] Disclaimer: The information contained in this section may have been updated after the patient was seen, as this information can be updated by other users. Medical History Neck pain Abnormal electrocardiogram [ECG] [EKG] Stenosis of carotid artery Coronary artery disease History of heart attack History of stroke Hyperlipidemia Hypertension Hypertension Surgical History History of coronary artery bypass graft History of right-sided carotid endarterectomy History of coronary artery stent placement History of incision and drainage History of surgery on lower extremity History of open heart surgery Family History Other Family history of myocardial infarction Social History Smoking Status: Former smoker tobacco type: cigarettes packs per day: 1 alcohol intake: current alcohol intake frequency: a few times a week substance use type: denies use current occupational status: retired Travel in the last 8 weeks: None household members: spouse housing: house 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fill current occupational exposures/hazards: No caffeine: Yes ROS Obtained: Yes All systems reviewed & no additional complaints except as documented Physical Exam General General appearance: alert and in no apparent distress Respiratory Respiratory exam: Present normal lung sounds bilaterally and respiratory distress Cardiovascular Cardiovascular exam: Present regular rate and irregular rhythm Abdominal Exam Abdominal exam: Present soft; Absent distention or tenderness Neurological Exam Neurological exam: Present alert, oriented X3 and other (Patient has 3 out of 5 strength in right upper and right lower extremities otherwise nonfocal neurologic exam) HEART Score HEART Score HEART Score assessment performed?: Yes History (anamnesis): Moderately suspicious ECG: Non-specific disturbance Age: >65 years Risk factors: Atherosclerosis history Troponin: </= normal limit HEART Score: 6 Critical Care Critical Care Time Critical Care Time: Yes Attestation: On 08/05/24, the high probability of a clinically significant, sudden or life threatening deterioration of the following system(s) required my full and direct attention, intervention and personal management. The time I documented below is in addition to time spent performing reported procedures but includes the following listed in this critical care notation. Total Time Total Critical Care Time: 35 Medical Decision Making Janusz Inquiry Pt receiving controlled substance: No Vital Signs Vital Signs: 08/05/24 10:41 08/05/24 10:50 08/05/24 11:00 Pulse Rate 90 114 H Pulse Rate [Right Brachial] 95 H Respiratory Rate 14 18 13 Blood Pressure 106/70 L 116/76 Blood Pressure [Right Arm] 106/70 L Blood Pressure Mean [Right Arm] 82 02 Sat by Pulse Oximetry 98 97 100 Oxygen Delivery Method Room Air 08/05/24 11:49 08/05/24 12:00 08/05/24 12:30 Pulse Rate 112 H 125 H 90 Pulse Rate [Right Brachial] Respiratory Rate 19 17 19 Blood Pressure 95/69 L 129/79 117/82 Blood Pressure [Right Arm] Blood Pressure Mean [Right Arm] 02 Sat by Pulse Oximetry 97 98 97 Oxygen Delivery Method Room Air Lab Data Lab results reviewed: Yes I reviewed the patient's lab results. Labs: Lab Results 08/05/24 10:45: WBC 8.8, RBC 4.17 L, Hgb 14.9, Hct 48.9, MCV 117.1 H, MCH 35.7 H , MCHC 30.5 L, RDW 16.3, Plt Count 188, MPV 8.2, Neut % (Auto) 74.9, Lymph % (Auto) 15.0, [place] % (Auto) 8.7, Eos % (Auto) 0.9, Baso % (Auto) 0.5, Neut # (Auto) 6.6, Lymph # (Auto) 1.3, [place] # (Auto) 0.8, Eos # (Auto) 0.1, Baso # (Auto) 0.0, PT 11.9, INR 1.07, APTT 27.4, Sodium 137, Potassium 4.0, Chloride 103, Carbon Dioxide 31 H, Anion Gap 7.0, BUN 28 H, Creatinine 1.30 H, Estimated Creat Clear 42, Estimated GFR 53 L, Est GFR ( Amer) 64, Glucose 102 H, Calcium 9.3, Total Bilirubin 1.0, AST 40, ALT 40, Alkaline Phosphatase 153 H, Troponin I 0.02, Total Protein 7.3, Albumin 4.1, Globulin 3.2, Albumin/Globulin Ratio 1.3, HIV 1&2 Antibody Rapid Nonreactive 08/05/24 10:45 08/05/24 10:45 Response Orders (Tests/Meds): ED MEDICATIONS Generic Name Dose Route Start Last Admin Trade Name Freq PRN Reason Stop Dose Admin Sodium Chloride 10 ml 08/05/24 12:09 Sodium Chloride 0.9% 10ml Flush Syringe IV 09/04/24 12:08 NEEDED PRN Maintain IV Site Discontinued Medications Generic Name Dose Route Start Last Admin Trade Name Freq PRN Reason Stop Dose Admin Aspirin 81 mg 08/05/24 12:56 Aspirin 81mg Chewable Tablet PO 08/05/24 12:57 ONCE ONE Lactated Ringer's 500 mls @ 999 mls/hr 08/05/24 11:00 08/05/24 10:56 Lactated Ringer's 1000 Ml Bag IV 08/05/24 11:30 999 mls/hr .Q31M TACOS Administration Iopamidol 160 ml 08/05/24 11:22 08/05/24 11:23 Iopamidol-370 (76%);100ml Bottle IV 08/05/24 11:23 160 ml ONCE ONE Administration Sodium Chloride 50 ml 08/05/24 11:22 08/05/24 11:23 0.9 % Sodium Chloride 50 Ml Vial IV 08/05/24 11:23 50 ml ONCE ONE Administration Sodium Chloride 10 ml 08/05/24 11:22 08/05/24 11:23 Sodium Chloride 0.9% 10ml Syr (Rad Only) IV 08/05/24 11:23 10 ml ONCE ONE Administration ORDERS Category Date Time Status CT angio chest - dissection Stat Cat Scan 08/05/24 10:[address] angio head Stat Cat Scan 08/05/24 10:[address] angio neck Stat Cat Scan 08/05/24 10:[address] head/brain wo con Stat Cat Scan 08/05/24 10:49 Completed POCUS Point of Care (ER Only) Stat Exams 08/05/24 10:50 Taken CBC w/Auto Diff [Complete Blood Count Auto Diff] Stat Lab 08/05/24 10:45 Completed CMP [Comprehensive Metabolic Panel] Stat Lab 08/05/24 10:45 Completed HIV (1&2) Antibody Rapid Stat Lab 08/05/24 10:45 Completed Hep C Ab with Reflex to RNA Stat Lab 08/05/24 10:45 Received PT/PTT Stat Lab 08/05/24 10:45 Completed Trop I [Troponin I] Stat Lab 08/05/24 10:45 Completed Troponin I Q3H Lab 08/05/24 14:00 Ordered Troponin I Q3H Lab 08/05/24 17:00 Ordered ECG Data Tracing #1: Attestation: I reviewed this ECG and interpreted as documented below: ECG Narrative: Ventricular rate of 87 with atrial fibrillation no evidence of rapid ventricular response there are anterior and inferior T wave inversions which are consistent with old EKGs no acute ischemic changes noted specifically no ST elevations or depressions no other conduction abnormalities noted there is a normal axis MDM Narrative Medical Decision Narrative: 84-year-old with above history and physical. Differential includes acute coronary syndrome, aortic dissection, stroke, etc. Will get a CT angio of the chest to rule out dissection as well as CT angio of the head and neck with a noncontrasted CT scan given his neurologic deficits that seem to be about 12 days old. He is on Eliquis and has been compliant with that medication. Has a history of carotid disease with a carotid endarterectomy on the right but no history of carotid disease on the left. Currently he is without chest pain no intervention needed emergently from a heart cath standpoint he also has been told that he is no longer a candidate for any type of surgical or interventional procedure. Will reassess if his symptoms return otherwise pending his diagnostic workup. Reassessments 1:[address] of the chest performed to person interpreted shows no acute cardiopulmonary emergency. CT of the head and neck shows a left frontal old infarct. I have no old imaging to compare to however family states that he is never had a stroke on the left side and that he is never had any deficits on the right side so this is new. I suspect that what ever episode he had 12 days ago this is what happened. He does have a history of heart failure with reduced ejection fraction he will need an echo to rule out an LV thrombus. He has had an infarct on top of being chronically anticoagulated on Eliquis he will need further management regarding his anticoagulation. I discussed the case with our hospital medicine And given the fact that we do not have stroke neurology or evaluation for possible carotid intervention such as with the neurosurgeon he has a chronic ICA occlusion which family did not know about but this has been documented in the past he will need a multidisciplinary team to optimize this patient. I spoke with neurology team at [facility] which is the preferred location of the family and he agreed the patient would need cardiology consultation neurology consultation and optimal medical management he requested that we go ahead and give an additional dose of aspirin in the ED. Patient and family are agreeable and aware of this plan. Awaiting hospital medicine for final acceptance and patient will be transferred for further evaluation and management.
[2024-08-05] MEDS: LACTATED RINGERS 1000ML 500 ML 999 ML IV (10:56)
[2024-08-05 10:59] LABS: Basophils % 0.5 % (0.1-2.0); Eosinophils # 0.1 K/mm3 (0.0-0.4); Eosinophils % 0.9 % (0.1-12.0); Hematocrit 48.9 % (42.0-52.0); Hemoglobin 14.9 g/dL (14.1-18.0); Lymphocytes # 1.3 K/mm3 (0.7-4.5); Mean Corpuscular HGB Conc 30.5 g/dL (31.8-35.4); Mean Corpuscular Hemoglobin 35.7 pg (27.0-31.2); Mean Corpuscular Volume 117.1 fl (80-94); Mean Platelet Volume 8.2 fl (7.4-10.4); Monocytes # 0.8 K/mm3 (0.1-1.0); Monocytes % 8.7 % (1.7-9.3); Neutrophils # 6.6 K/mm3 (1.8-7.8); Neutrophils % 74.9 % (37.0-80.0); Platelet Count 188 K/mm3 (142-424); Red Blood Count 4.17 M/mm3 (4.60-6.20); Red Cell Distribution Width 16.3 % (11.5-17.5); White Blood Count 8.8 K/mm3 (4.8-10.8)
[2024-08-05 11:04] LABS: Albumin Level 4.1 g/dl (3.5-5.0); Chloride 103 mmol/L (98-107); Sodium 137 mmol/L (136-145)
[2024-08-05 11:07] LABS: Alanine Aminotransferase 40 U/L (12-78); Albumin/Globulin Ratio 1.3 (1.1-1.8); Alkaline Phosphatase 153 U/L (38-126); Aspartate Amino Transferase 40 U/L (17-59); Blood Urea Nitrogen 28 mg/dl (9-20); Calcium 9.3 mg/dl (8.4-10.2); Carbon Dioxide 31 mmol/L (22.0-30.0); Creatinine Clearance Estimated 42 mL/min (50-200); Estimated Glomerular Filt Rate 53 ml/min (>60); GFR (African American) 64 ML/MIN (>60); Globulin 3.2 g/dL (1.3-3.2); Glucose 102 mg/dl (74-100); Total Protein,Serum 7.3 g/dl (6.3-8.2)
[2024-08-05 11:19] LABS: Troponin I 0.02 ng/ml (0.00-0.034)
--- NOTE | 2024-08-05 11:20 | PC.NURSE ---
pt to ct
[2024-08-05 11:21] LABS: Activated Partial Thrombo Time 27.4 seconds (22.8-30.6); INR 1.07 (0.9-1.1); Prothrombin Time 11.9 seconds (10.1-12.5)
[2024-08-05] MEDS: 0.9 % SODIUM CHLORIDE 50 ML VIAL IV (11:23)
[2024-08-05] MEDS: IOPAMIDOL-370 (76%);100ML BOTTLE 160 ML IV (11:23)
[2024-08-05] MEDS: SODIUM CHLORIDE 0.9% 10ML SYR (RAD ONLY) 10 ML IV (11:23)
--- NOTE | 2024-08-05 11:33 | PC.NURSE ---
pt returned from ct
--- NOTE | 2024-08-05 11:51 | PC.NURSE ---
Bailee and myself help pt to wheelchair to go to restroom and back. pt was very short breath when ambulating what little he did and also while standing and urinating at the toilet Roxy and myself stay at side of pt for safety precautions. He is now back in bed hooked up to vitals and covered pt up no other needs at this time, family and call light at bs
[2024-08-05 11:58] LABS: HIV (1&2) Antibody Rapid NONREACTIVE (NONREACTIVE)
--- NOTE | 2024-08-05 12:26 | PC.NURSE ---
dr pickard speaking with hospitalist
--- NOTE | 2024-08-05 12:29 | PC.NURSE ---
dr pickard at bedside to update pt and family
--- NOTE | 2024-08-05 12:37 | PC.NURSE ---
CALLING [facility] FOR TRANSFER. TRANSFER CENTER STATES THEY WE GET HOSPITALIST ON THE LINE AND CALL BACK
--- NOTE | 2024-08-05 12:50 | PC.NURSE ---
Addendum entered by Mai Rayo, DOMENIC 08/05/24 12:59: ACTUALLY SPOKE WITH STROKE LORIE AT [facility] Original Note: SPEAKING WITH HOSPITALIST FROM [facility]
[2024-08-05] MEDS: ASPIRIN 81MG CHEWABLE TABLET 81 MG PO (13:07)
--- NOTE | 2024-08-05 14:10 | PC.NURSE ---
PT WAS GIVEN A CARDIAC TRAY
[2024-08-05 14:37] LABS: Troponin I 0.01 ng/ml (0.00-0.034)
--- NOTE | 2024-08-05 14:54 | PC.NURSE ---
FAMILY UPDATED AT THIS TIME
--- NOTE | 2024-08-05 16:03 | PC.NURSE ---
UPDATED PT DAUGHTER AYO THAT HER DAD HAS A BED AT [facility] AND WE ARE WORKING TO GET HIM TRANSPORTED TO [facility]. I TOLD HER I WOULD GIVE HER A CALL WHEN HE WAS LEAVING OUR FACILITY
--- NOTE | 2024-08-05 16:09 | PC.NURSE ---
NOTIFIED [facility] OF PT TRANSFER TO [facility] FOR THE [facility]OR.IT IS A ALS TRANSPORT DUE TO [employer]ASS[employer], ALSO LET THEM KNOW ROOM # WOULD BE GIVEN TO THEM WHEN THEY ARRIVE.
[2024-08-06 07:13] LABS: HCV Ab Non Reactive (Non Reactive)
== END 2024-08-05 16:43 | disposition other institution (70) ==
PROVIDERS: Emergency Provider Student in an Organized Health Care Education/Training Program
DX: I63.9 Cerebral infarction, unspecified (principal); I65.22 Occlusion and stenosis of left carotid artery; I24.9 Acute ischemic heart disease, unspecified; R53.1 Weakness; I48.91 Unspecified atrial fibrillation
CPT/HCPCS: 70450; 70496; 70498; 71275; 80053; 84484; 85025; 85610; 85730; 86803; 87389; 93005; 99285; J7120; Q9967

== ENCOUNTER 2024-08-11 10:38 | Outpatient (POV) | payer MEDICARE, OTHER, SELFPAY ==
--- NOTE | 2024-08-11 11:21 | A.OFFVIS_ITS ---
[facility] Disclaimer: The information contained in this section may have been updated after the patient was seen, as this information can be updated by other users. Medical History Neck pain Abnormal electrocardiogram [ECG] [EKG] Stenosis of carotid artery Coronary artery disease History of heart attack History of stroke Hyperlipidemia Hypertension Hypertension Surgical History History of coronary artery bypass graft History of right-sided carotid endarterectomy History of coronary artery stent placement History of incision and drainage History of surgery on lower extremity History of open heart surgery Family History Other Family history of myocardial infarction Social History Smoking Status: Former smoker tobacco type: cigarettes packs per day: 1 alcohol intake: current alcohol intake frequency: a few times a week substance use type: denies use current occupational status: retired Travel in the last 8 weeks: None household members: spouse housing: house 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fill current occupational exposures/hazards: No caffeine: Yes PM Subjective & Objective Subjective Subjective:: Patient is a pleasant 84-year-old male who presents today for follow-up of his first lumbar medial branch block bilaterally L4-L5 and L5-S1 on 07/22/2024. Today he rates his pain a 10 out of 10. Patient denies any new trauma or injury. He does state that he had 100% relief for at least a week following this procedure. Patient states that he is back to his baseline today and states he has a lot of pain all throughout his low back as well as from his low back that radiates up his right side to his shoulder. Patient does state that the low back symptoms are constant and seem to be worse with certain movements such as bending, twisting or lifting. Patient does state the pain interferes with his ability perform activities of daily living such as cooking and cleaning. Patient does state that he is interested in repeating injections because he did have such improved function. Patient does present today with his family at this appointment. His does state that even she noticed significant improvement with him following this procedure. She states that he was not complaining of pain like what he had been and his movements seem much easier. Patient has tried and failed conservative therapy including continued at home stretching exercise for longer than 6 weeks. Patient is prescribed diazepam from his PCP his Janusz has been reviewed and is appropriate. Review of Systems: General: No recent weight changes, no fever, no sleep disturbances Respiratory: No cough, no shortness of air, no recurring pulmonary infections Cardiovascular/peripheral vascular: No chest pain, no palpitations, no edema, no shortness of breath Gastrointestinal: No new onset incontinence, normal bowel movements reported Genitourinary: No new onset incontinence Musculoskeletal: Low back pain Psychiatric: [Normal mood/affect] Neurological: [Denies weakness in extremities], [denies balance issues] Pain at rest (0-10 scale): 10 Objective Objective:: Physical Exam: General: Alert and oriented x3, no acute distress, pleasant and cooperative Lungs: Respirations even and unlabored, symmetrical chest expansion Eyes: PERRL Musculoskeletal: Flexion and extension of lumbar [spine] somewhat guarded secondary to pain, [antalgic gait noted] positive Kemps test Neurological: Speech clear, no gross sensory deficit Has patient had previous pain injection?: Yes Percent improvement in pain since last injection: 100% Conservative treatment options previously tried: Home exercise plan Length of treatment: Longer than 12 weeks Meds Home Medications and Allergies Home Medications ?Medication ?Instructions ?Recorded ?Confirmed ?Type nitroglycerin 0.4 mg sublingual 0.4 mg sublingual Q5MINP PRN Chest 03/25/24 08/05/24 History tablet Pain pravastatin 80 mg tablet 80 mg PO DAILY 03/25/24 08/05/24 History atenolol 25 mg tablet 12.5 mg (1/2 x 25 mg) PO DAILY 30 03/28/24 08/05/24 Rx days #15 tabs isosorbide mononitrate 60 mg 60 mg PO DAILY 30 days #30 tabs 03/28/24 08/05/24 Rx tablet,extended release 24 hr pantoprazole 40 mg tablet,delayed 40 mg PO HS 30 days #30 tabs 03/28/24 08/05/24 Rx release furosemide 40 mg tablet See Rx Instructions .Route 06/16/24 08/05/24 Rx .COMPLEX #180 tabs methocarbamol 750 mg tablet 750 mg PO TID PRN muscle pain #42 07/03/24 08/05/24 Rx tabs New Prescriptions to Start Prescriptions: Allergies Allergy/AdvReac Type Severity Reaction Status Date / Time No Known Allergies Allergy Verified 08/05/24 10:58 Assessment and Plan *Assessment and plan (1) Lumbar spondylosis: Status: Acute Category: Medical Code(s): M47.816 - Spondylosis without myelopathy or radiculopathy, lumbar region (2) Lumbar facet arthropathy: Status: Acute Category: Medical Code(s): M47.816 - Spondylosis without myelopathy or radiculopathy, lumbar region (3) Degenerative disc disease, lumbar: Status: Acute Category: Medical Code(s): M51.36 - Other intervertebral disc degeneration, lumbar region (4) Lumbar stenosis: Status: Acute Qualifiers: Neurogenic claudication status: unspecified Qualified Code(s): M48.061 - Spinal stenosis, lumbar region without neurogenic claudication Category: Medical Code(s): M48.061 - Spinal stenosis, lumbar region without neurogenic claudication Plan Patient did have significant improvement with his first lumbar medial branch block injections that did provide 100% relief lasting at least 1 full week. Patient did have improved function and was able to move around easier with overall decreased pain. Patient was counseled due to his pain returning and having limited range of motion of his lumbar spine with a positive Kemps test that he may benefit from a second lumbar medial branch block. Risk and benefits were discussed with him and his family and they all would like to proceed forward with this option. Patient has tried and failed conservative therapy including continued at home stretching exercise for longer than 12 weeks. Patient will be scheduled for his second lumbar medial branch block bilaterally L4-L5 and L5-S1 under fluoroscopy. If he does get significant relief we will plan on proceeding forward with the lumbar RFA at a later date. Patient agrees with this plan of care. Patient has been instructed to contact the clinic with any concerns before the next appointment. Dr. Barnes has reviewed this note and agrees with this plan of care. This note was dictated using voice recognition software and make contain errors or omissions. All injections are used with Lidocaine or Bupivacaine and Depo Medrol.
[2024-08-11 13:27] VITALS: BP 141/72; PULSE 82; RESP 18; O2SAT 96; BMI 21.5
== END 2024-08-11 23:59 | disposition home or self-care (01) ==
LOC: SC.PAIN 10:39
PROVIDERS: PCP Family Medicine; Visit Provider Nurse Practitioner Family
DX: M47.816 Spondylosis without myelopathy or radiculopathy, lumbar region (principal); M51.36 Other intervertebral disc degeneration, lumbar region; M48.061 Spinal stenosis, lumbar region without neurogenic claudication; Z87.891 Personal history of nicotine dependence; Z73.89 Other problems related to life management difficulty
CPT/HCPCS: 99212; G0463

== ENCOUNTER 2024-08-14 13:43 | Emergency (ER) | payer MEDICARE, OTHER, SELFPAY ==
[2024-08-14] VITALS (11 sets, daily range): BP systolic 111–130; BP diastolic 68–103; PULSE 62–125; RESP 14–22; TEMP 36.3–36.6; O2SAT 95–100; BMI 21.5
--- NOTE | 2024-08-14 14:19 | ED_ITS ---
<Statement entered by Prakash Nuñez MD - 08/14/24 22:49> I was consulted by the ERIC, and we discussed the complexity of the problems being addressed. I approved the treatment and management plan for this patient's care in the emergency department, thus performing a substantive portion of the medical decision making. Prakash Nuñez MD, PRITI, FACEP Discharge Plan Disposition Patient Disposition: Xfer Short-Term Hosp Condition: Critical Prescriptions Prescriptions: No Action furosemide 40 mg tablet See Rx Instructions .ROUTE .COMPLEX Qty: 180 3RF Dose Instruction: TAKE 2 TABLETS EACH DAY FOR SWELLING Rx Instructions: TAKE 2 TABLETS EACH DAY FOR SWELLING pravastatin 80 mg tablet 80 mg PO DAILY nitroglycerin 0.4 mg tablet, sublingual 0.4 mg sublingual Q5MINP PRN (Reason: Chest Pain) atenolol 25 mg Tablet 12.5 mg PO DAILY 30 Days Qty: 15 0RF isosorbide mononitrate 60 mg Tablet Extended Release 24 Hr 60 mg PO DAILY 30 Days Qty: 30 0RF pantoprazole 40 mg Tablet,Delayed Release (Dr/Ec) 40 mg PO HS 30 Days Qty: 30 0RF methocarbamol 750 mg tablet 750 mg PO TID PRN (Reason: muscle pain) Qty: 42 0RF Referrals Follow up/Referrals: Marianne Perry [Primary Care Provider] - See instructions Activity Restrictions/Add. Instructions Additional Instructions/Restrictions: Transferred to [facility] Dr. Henry Clinical Impressions Clinical Impression: Atrial fibrillation with rapid ventricular response, Sick sinus syndrome, Acute exacerbation of chronic heart failure, Acute on chronic renal failure, Multisystem organ failure Stand Alone Forms Stand Alone Forms: Transfer Record - ED Instructions Patient Instructions: DI for Diarrhea and Traveler's Diarrhea -- Adult, DI for Diarrhea and Traveler's Diarrhea -- Child, DI for Nausea -- Adult, DI for Nausea -- Child Print Language Print Language: Nicaraguan Discharge ED Provider: Honey Corrales General Adult HPI <MANOJ Whitfield - Last Filed: 08/14/24 19:33> General Chief complaint: Nausea/Vomiting/Diarrhea Stated complaint: V/D Time Seen by Provider: 08/14/24 13:55 Mode of Arrival: Wheelchair Source of Information: Patient, Spouse and Relative Limitations: No Limitations Description of Symptoms (Recalled from ER Triage Doc. by RN): Pt. presents to the ED with complaints of weakness, nausea, vomiting and diarrhea for about 5 days. He states he was here last week for weakness and stroke like symptoms and was transferred to [facility]. He states they told him he did not have a stroke or a heart attack. He was discharged last . History of Present Illness HPI narrative: Patient sent to the emergency department by his PCP for 5 days of reported inability to tolerate oral intake with nausea vomiting or diarrhea. Patient has a poor historian primarily because he has severe presbycusis. He recently was sent to [facility] in [place] to rule out a heart attack or stroke which was reportedly negative. Patient was eating and drinking fine until Sunday and since then he reports that he has been unable to tolerate oral intake. Additionally patient has a history of A-fib but at the time my exam his heart rate is 40s and quickly changes to greater than 120 but nonsustained. He is on atenolol Lasix but I do not see a blood thinner on his current medication list in the computer. He denies chest pain shortness of breath fever chills hemoptysis hematochezia melena. Patient also reports he feels worse when standing. Related Data Home Medications ?Medication ?Instructions ?Recorded ?Confirmed nitroglycerin 0.4 mg sublingual 0.4 mg sublingual Q5MINP PRN Chest 03/25/24 08/11/24 tablet Pain pravastatin 80 mg tablet 80 mg PO DAILY 03/25/24 08/11/24 Previous Rx's ?Medication ?Instructions ?Recorded atenolol 25 mg tablet 12.5 mg (1/2 x 25 mg) PO DAILY 30 03/28/24 days #15 tabs isosorbide mononitrate 60 mg 60 mg PO DAILY 30 days #30 tabs 03/28/24 tablet,extended release 24 hr pantoprazole 40 mg tablet,delayed 40 mg PO HS 30 days #30 tabs 03/28/24 release furosemide 40 mg tablet See Rx Instructions .Route 06/16/24 .COMPLEX #180 tabs methocarbamol 750 mg tablet 750 mg PO TID PRN muscle pain #42 07/03/24 tabs Allergies Allergy/AdvReac Type Severity Reaction Status Date / Time No Known Allergies Allergy Verified 08/05/24 10:58 [facility] <MANOJ Whitfield - Last Filed: 08/14/24 19:33> [facility] Disclaimer: The information contained in this section may have been updated after the patient was seen, as this information can be updated by other users. Medical History Neck pain Abnormal electrocardiogram [ECG] [EKG] Stenosis of carotid artery Coronary artery disease History of heart attack History of stroke Hyperlipidemia Hypertension Hypertension Surgical History (Reviewed 08/05/24 @ 09: by Alissa Ch) History of coronary artery bypass graft History of right-sided carotid endarterectomy History of coronary artery stent placement History of incision and drainage History of surgery on lower extremity History of open heart surgery Family History (Reviewed 08/05/24 @ 09: by Alissa Ch) Other Family history of myocardial infarction Social History Smoking Status: Never smoker alcohol intake: current alcohol intake frequency: a few times a week substance use type: denies use current occupational status: retired Travel in the last 8 weeks: None household members: spouse housing: house 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[employer] current occupational exposures/hazards: No caffeine: Yes Other Medical History Have you received the Flu Vaccine for this season: No Have you received the Pneumonia Vaccine: No <MANOJ Whitfield - Last Filed: 08/14/24 19:33> ROS Obtained: Yes Systems reviewed as appropriate & no additional complaints except as documented Physical Exam <MANOJ Whitfield - Last Filed: 08/14/24 19:33> General General appearance: alert and in no apparent distress Respiratory Respiratory exam: Present normal lung sounds bilaterally Cardiovascular Cardiovascular exam: Present bradycardia Neurological Exam Neurological exam: Present alert and oriented X3 Medical Decision Making <MANOJ Whitfield - Last Filed: 08/14/24 19:33> Medical Records Medical records reviewed: Yes I reviewed the patient's medical records. Screening: Per USPSTF and CDC recommendations, given the prevalence of disease in our region, it is our hospital?s policy to screen for HIV and viral Hepatitis for all patients aged 18 and over and those with ongoing risk factors. Janusz Inquiry Pt receiving controlled substance: No Vital Signs: 08/14/24 13:59 08/14/24 14:30 08/14/24 15:00 Temperature 97.4 F L Temperature Source Oral Pulse Rate 124 H 116 H Pulse Rate [Right Brachial] 79 Respiratory Rate 16 14 15 Blood Pressure 130/103 H 125/85 Blood Pressure [Right Arm] 118/81 Blood Pressure Mean Blood Pressure Mean [Right Arm] 93 Blood Pressure Source [Right Arm] Automatic Cuff Blood Pressure Position [Right Arm] Sitting 02 Sat by Pulse Oximetry 95 98 97 Oxygen Delivery Method Room Air Room Air Room Air 08/14/24 15:30 08/14/24 16:30 08/14/24 17:30 Temperature Temperature Source Pulse Rate 125 H 62 77 Pulse Rate [Right Brachial] Respiratory Rate 17 18 17 Blood Pressure 127/84 111/68 124/80 Blood Pressure [Right Arm] Blood Pressure Mean Blood Pressure Mean [Right Arm] Blood Pressure Source [Right Arm] Blood Pressure Position [Right Arm] 02 Sat by Pulse Oximetry 95 100 100 Oxygen Delivery Method Room Air Room Air Room Air 08/14/24 18:00 08/14/24 18:30 08/14/24 19:01 Temperature 97.9 F Temperature Source Oral Pulse Rate 76 119 H 92 H Pulse Rate [Right Brachial] Respiratory Rate 16 22 20 Blood Pressure 120/88 129/93 H 125/82 Blood Pressure [Right Arm] Blood Pressure Mean 96 Blood Pressure Mean [Right Arm] Blood Pressure Source [Right Arm] Blood Pressure Position [Right Arm] 02 Sat by Pulse Oximetry 95 96 95 Oxygen Delivery Method Room Air Room Air Room Air 08/14/24 19:05 Temperature Temperature Source Pulse Rate 98 H Pulse Rate [Right Brachial] Respiratory Rate 20 Blood Pressure 126/86 Blood Pressure [Right Arm] Blood Pressure Mean 100 Blood Pressure Mean [Right Arm] Blood Pressure Source [Right Arm] Blood Pressure Position [Right Arm] 02 Sat by Pulse Oximetry 95 Oxygen Delivery Method Room Air Lab Data Lab results reviewed: Yes I reviewed the patient's lab results. Lab Results 08/14/24 14:02: Acetone Level None detected 08/14/24 14:07: WBC 6.5, RBC 4.77, Hgb 16.9, Hct 54.7 H, MCV 114.5 H, MCH 35.5 H , MCHC 31.0 L, RDW 16.7, Plt Count 158, MPV 9.9, Neut % (Auto) 77.0, Lymph % (Auto) 13.2, [place] % (Auto) 8.7, Eos % (Auto) 0.3, Baso % (Auto) 0.9, Neut # (Auto) 5.0, Lymph # (Auto) 0.9, [place] # (Auto) 0.6, Eos # (Auto) 0.0, Baso # (Auto) 0.1, PT 17.0 H, INR 1.59 H, Sodium 136, Potassium 5.4 H, Chloride 98, C arbon Dioxide 21 L, Anion Gap 22.4 H, BUN 42 H, Creatinine 1.90 H, Estimated Creat Clear 27, Estimated GFR 34 L, Est GFR ( Amer) 41 L, Glucose 138 H, Lactate 4.9 H, Calcium 9.8, Magnesium 2.5 H, Total Bilirubin 2.2 H, AST 263 H, A LT 297 H, Alkaline Phosphatase 174 H, Troponin I 0.03, Total Protein 8.5 H, Albumin 4.8, Globulin 3.7 H, Albumin/Globulin Ratio 1.3, Lipase 87, Procalcitonin 0.189 08/14/24 17:36: Troponin I 0.04 H 08/14/24 17:55: Lactate 4.4 H 08/14/24 14:07 08/14/24 14:07 Orders (Tests/Meds): ED MEDICATIONS Generic Name Dose Route Start Last Admin Trade Name Freq PRN Reason Stop Dose Admin Amiodarone HCl 900 mg/ 518 mls @ 34.533 mls/hr 08/14/24 18:44 08/14/24 19:14 Dextrose IV 08/15/24 09:44 1 mg/min .Q15H1M TACOS 34.53 mls/hr Administration Protocol 1 MG/MIN Discontinued Medications Generic Name Dose Route Start Last Admin Trade Name Freq PRN Reason Stop Dose Admin Acetaminophen 1,000 mg 08/14/24 14:24 08/14/24 14:39 Acetaminophen 1,000mg/100ml Vial IV 08/14/24 14:25 1,000 mg ONCE ONE Administration Sodium Chloride 1,000 mls @ 999 mls/hr 08/14/24 14:24 08/14/24 14:40 Sod Chlor 0.9% 1000ml Bag IV 08/14/24 15:24 999 mls/hr .Q1H1M ONE Administration Amiodarone HCl 150 mg/ 103 mls @ 618 mls/hr 08/14/24 18:43 08/14/24 18:58 Dextrose IV 08/14/24 18:52 618 mls/hr ONCE ONE Administration Protocol Iopamidol 80 ml 08/14/24 16:10 08/14/24 16:11 Iopamidol-370 (76%);100ml Bottle IV 08/14/24 16:11 80 ml ONCE ONE Administration Ondansetron HCl 4 mg 08/14/24 14:24 08/14/24 14:40 Ondansetron 4mg/2ml Vial IV 08/14/24 14:25 4 mg ONCE ONE Administration Sodium Chloride 10 ml 08/14/24 16:10 08/14/24 16:11 Sodium Chloride 0.9% 10ml Syr (Rad Only) IV 08/14/24 16:11 10 ml ONCE ONE Administration Sodium Chloride 50 ml 08/14/24 16:10 08/14/24 16:11 0.9 % Sodium Chloride 50 Ml Vial IV 08/14/24 16:11 50 ml ONCE ONE Administration ORDERS Category Date Time Status CT angio abdomen pelvis Stat Cat Scan 08/14/24 15:15 Completed Chest XR -- portable [XR chest portable] Stat Exams 08/14/24 16:57 Completed POCUS Point of Care (ER Only) Stat Exams 08/14/24 17:14 Completed Acetone, Serum (Rapid) Stat Lab 08/14/24 14:02 Completed CBC w/Auto Diff [Complete Blood Count Auto Diff] Stat Lab 08/14/24 14:07 Completed CMP [Comprehensive Metabolic Panel] Stat Lab 08/14/24 14:07 Completed INR [Prothrombin Time INR] Stat Lab 08/14/24 14:07 Completed Lactate Venous Stat Lab 08/14/24 19:26 Ordered Lactic Acid Follow Up (RFLX 1) Stat Lab 08/14/24 17:55 Completed Lactic Acid Stat Lab 08/14/24 14:07 Completed Lipase Stat Lab 08/14/24 14:07 Completed Magnesium Stat Lab 08/14/24 14:07 Completed Procalcitonin Stat Lab 08/14/24 14:07 Completed Trop I [Troponin I] Stat Lab 08/14/24 14:07 Completed Troponin I Q3H Lab 08/14/24 17:36 Completed Troponin I Q3H Lab 08/14/24 20:30 Ordered UA [Urinalysis and Microscopic] Stat Lab 08/14/24 19:24 Received Tissue Perfus/Sepsis Re-Eval Sepsis Re-Evaluation Performed: Yes Date Performed: 08/14/24 Time Performed: 19:33 Medical Decision Narrative: In summary patient is a 84-year-old male who presents to the emergency department for evaluation of nausea vomiting diarrhea abdominal pain. Patient is normotensive with a blood pressure of 118/71 heart rate of 46 at the time my exam satting at 95% on room air with respiratory rate of 16 upon arrival, with a temperature of 97.4. Physical exam is remarkable for normal bowel sounds however patient has exquisite diffuse abdominal pain even with light palpation out of proportion to his exam. Abdomen is soft without rebound or guarding or rigidity. Breath sounds are clear and equal heart rate is slow and irregularly irregular. Differential diagnosis includes gastroenteritis versus tachybradycardia syndrome versus A-fib RVR versus over beta-blockade etc. Initial workup will be conducted with hematologic labs CT scan abdomen pelvis twelve-lead EKG. Initial interventions include crystalloid bolus Zofran NPO. Initial workup reviewed by me shows that his white count is normal with no shift however patient has significant derangements including acute on chronic kidney injury, significant lactic acidosis of 4.9, transaminitis and hyperbilirubinemia, hyperkalemia of 5.4 he has a coagulopathy of 1.59 and he is on Eliquis metabolic acidosis with a gap of 22.4 CO2 of 21 and his procalcitonin was 0.189, my informal interpretation of his plain film chest x-ray shows bilateral chronic pleural effusions no worse than previous, POCUS showed decreased ejection fraction from previous and no evidence of acute cholecystitis. Given that patient has evidence of multisystem organ failure likely due to decompensated heart failure, sick sinus syndrome, cute on chronic renal failure, transaminitis and hyperbilirubinemia secondary to likely congestive hepatopathy although shock liver is in the differential. I had an interactive discussion with Dr. Servin who was on-call for Dr. Perry and Dr. Servin felt the patient was too sick for him to care for here and recommended transfer. I then had an interactive discussion with the family and they would prefer to go to [facility]. Given that I had interactive discussion with the hospitalist Dr. Holcomb at [facility] about patient management and he has calmly agreed to take the patient in transfer. <Honey Reyes Corrales, DO - Last Filed: 08/14/24 15:30> Vital Signs: 08/14/24 13:59 08/14/24 14:30 08/14/24 15:00 Temperature 97.4 F L Temperature Source Oral Pulse Rate 124 H 116 H Pulse Rate [Right Brachial] 79 Respiratory Rate 16 14 15 Blood Pressure 130/103 H 125/85 Blood Pressure [Right Arm] 118/81 Blood Pressure Mean Blood Pressure Mean [Right Arm] 93 Blood Pressure Source [Right Arm] Automatic Cuff Blood Pressure Position [Right Arm] Sitting 02 Sat by Pulse Oximetry 95 98 97 Oxygen Delivery Method Room Air Room Air Room Air 08/14/24 15:30 08/14/24 16:30 08/14/24 17:30 Temperature Temperature Source Pulse Rate 125 H 62 77 Pulse Rate [Right Brachial] Respiratory Rate 17 18 17 Blood Pressure 127/84 111/68 124/80 Blood Pressure [Right Arm] Blood Pressure Mean Blood Pressure Mean [Right Arm] Blood Pressure Source [Right Arm] Blood Pressure Position [Right Arm] 02 Sat by Pulse Oximetry 95 100 100 Oxygen Delivery Method Room Air Room Air Room Air 08/14/24 18:00 08/14/24 18:30 08/14/24 19:01 Temperature 97.9 F Temperature Source Oral Pulse Rate 76 119 H 92 H Pulse Rate [Right Brachial] Respiratory Rate 16 22 20 Blood Pressure 120/88 129/93 H 125/82 Blood Pressure [Right Arm] Blood Pressure Mean 96 Blood Pressure Mean [Right Arm] Blood Pressure Source [Right Arm] Blood Pressure Position [Right Arm] 02 Sat by Pulse Oximetry 95 96 95 Oxygen Delivery Method Room Air Room Air Room Air 08/14/24 19:05 Temperature Temperature Source Pulse Rate 98 H Pulse Rate [Right Brachial] Respiratory Rate 20 Blood Pressure 126/86 Blood Pressure [Right Arm] Blood Pressure Mean 100 Blood Pressure Mean [Right Arm] Blood Pressure Source [Right Arm] Blood Pressure Position [Right Arm] 02 Sat by Pulse Oximetry 95 Oxygen Delivery Method Room Air Lab Data Lab Results 08/14/24 14:02: Acetone Level None detected 08/14/24 14:07: WBC 6.5, RBC 4.77, Hgb 16.9, Hct 54.7 H, MCV 114.5 H, MCH 35.5 H , MCHC 31.0 L, RDW 16.7, Plt Count 158, MPV 9.9, Neut % (Auto) 77.0, Lymph % (Auto) 13.2, [place] % (Auto) 8.7, Eos % (Auto) 0.3, Baso % (Auto) 0.9, Neut # (Auto) 5.0, Lymph # (Auto) 0.9, [place] # (Auto) 0.6, Eos # (Auto) 0.0, Baso # (Auto) 0.1, PT 17.0 H, INR 1.59 H, Sodium 136, Potassium 5.4 H, Chloride 98, C arbon Dioxide 21 L, Anion Gap 22.4 H, BUN 42 H, Creatinine 1.90 H, Estimated Creat Clear 27, Estimated GFR 34 L, Est GFR ( Amer) 41 L, Glucose 138 H, Lactate 4.9 H, Calcium 9.8, Magnesium 2.5 H, Total Bilirubin 2.2 H, AST 263 H, A LT 297 H, Alkaline Phosphatase 174 H, Troponin I 0.03, Total Protein 8.5 H, Albumin 4.8, Globulin 3.7 H, Albumin/Globulin Ratio 1.3, Lipase 87, Procalcitonin 0.189 08/14/24 17:36: Troponin I 0.04 H 08/14/24 17:55: Lactate 4.4 H Orders (Tests/Meds): ED MEDICATIONS Generic Name Dose Route Start Last Admin Trade Name Freq PRN Reason Stop Dose Admin Amiodarone HCl 900 mg/ 518 mls @ 34.533 mls/hr 08/14/24 18:44 08/14/24 19:14 Dextrose IV 08/15/24 09:44 1 mg/min .Q15H1M TACOS 34.53 mls/hr Administration Protocol 1 MG/MIN Discontinued Medications Generic Name Dose Route Start Last Admin Trade Name Freq PRN Reason Stop Dose Admin Acetaminophen 1,000 mg 08/14/24 14:24 08/14/24 14:39 Acetaminophen 1,000mg/100ml Vial IV 08/14/24 14:25 1,000 mg ONCE ONE Administration Sodium Chloride 1,000 mls @ 999 mls/hr 08/14/24 14:24 08/14/24 14:40 Sod Chlor 0.9% 1000ml Bag IV 08/14/24 15:24 999 mls/hr .Q1H1M ONE Administration Amiodarone HCl 150 mg/ 103 mls @ 618 mls/hr 08/14/24 18:43 08/14/24 18:58 Dextrose IV 08/14/24 18:52 618 mls/hr ONCE ONE Administration Protocol Iopamidol 80 ml 08/14/24 16:10 08/14/24 16:11 Iopamidol-370 (76%);100ml Bottle IV 08/14/24 16:11 80 ml ONCE ONE Administration Ondansetron HCl 4 mg 08/14/24 14:24 08/14/24 14:40 Ondansetron 4mg/2ml Vial IV 08/14/24 14:25 4 mg ONCE ONE Administration Sodium Chloride 10 ml 08/14/24 16:10 08/14/24 16:11 Sodium Chloride 0.9% 10ml Syr (Rad Only) IV 08/14/24 16:11 10 ml ONCE ONE Administration Sodium Chloride 50 ml 08/14/24 16:10 08/14/24 16:11 0.9 % Sodium Chloride 50 Ml Vial IV 08/14/24 16:11 50 ml ONCE ONE Administration ORDERS Category Date Time Status CT angio abdomen pelvis Stat Cat Scan 08/14/24 15:15 Completed Chest XR -- portable [XR chest portable] Stat Exams 08/14/24 16:57 Completed POCUS Point of Care (ER Only) Stat Exams 08/14/24 17:14 Completed Acetone, Serum (Rapid) Stat Lab 08/14/24 14:02 Completed CBC w/Auto Diff [Complete Blood Count Auto Diff] Stat Lab 08/14/24 14:07 Completed CMP [Comprehensive Metabolic Panel] Stat Lab 08/14/24 14:07 Completed INR [Prothrombin Time INR] Stat Lab 08/14/24 14:07 Completed Lactate Venous Stat Lab 08/14/24 19:26 Ordered Lactic Acid Follow Up (RFLX 1) Stat Lab 08/14/24 17:55 Completed Lactic Acid Stat Lab 08/14/24 14:07 Completed Lipase Stat Lab 08/14/24 14:07 Completed Magnesium Stat Lab 08/14/24 14:07 Completed Procalcitonin Stat Lab 08/14/24 14:07 Completed Trop I [Troponin I] Stat Lab 08/14/24 14:07 Completed Troponin I Q3H Lab 08/14/24 17:36 Completed Troponin I Q3H Lab 08/14/24 20:30 Ordered UA [Urinalysis and Microscopic] Stat Lab 08/14/24 19:24 Received ECG Data Tracing #1: I reviewed this ECG and interpreted as documented below: Atrial fibrillation with rapid ventricular response with a ventricular rate of [address]/T wave changes that are not significantly change from prior. ECG initial impression date: 08/14/24 ECG initial impression time: 14:31 Critical Care <MANOJ Whitfield - Last Filed: 08/14/24 19:33> Critical Care Time Critical Care Time: Yes Attestation: On 08/14/24, the high probability of a clinically significant, sudden or life threatening deterioration of the following system(cardiovascular) required my full and direct attention, intervention and personal management. The time I documented below is in addition to time spent performing reported procedures but includes the following listed in this critical care notation. Total Time Total Critical Care Time: 45
--- NOTE | 2024-08-14 14:30 | ECG_ITS ---
APPROVED REPORT Exam: Resting ECG HR:109 bpm ECG Measurements Heart Rate 109 AXES QRSd 132 QRS 72 QT 357 T 262 QTc 421 Conclusion ATRIAL FIBRILLATION WITH RAPID VENTRICULAR RESPONSE INTRAVENTRICULAR CONDUCTION DELAY [130+ ms QRS DURATION] ABNORMAL ECG Electronically signed by : JOYCE WOLF, 08/14/2024 15:31:33
[2024-08-14 14:32] LABS: Basophils # 0.1 K/mm3 (0-0.2); Basophils % 0.9 % (0.1-2.0); Eosinophils % 0.3 % (0.1-12.0); Hematocrit 54.7 % (42.0-52.0); Hemoglobin 16.9 g/dL (14.1-18.0); Lymphocytes # 0.9 K/mm3 (0.7-4.5); Lymphocytes % 13.2 % (10-50); Mean Corpuscular Hemoglobin 35.5 pg (27.0-31.2); Mean Corpuscular Volume 114.5 fl (80-94); Mean Platelet Volume 9.9 fl (7.4-10.4); Monocytes # 0.6 K/mm3 (0.1-1.0); Monocytes % 8.7 % (1.7-9.3); Platelet Count 158 K/mm3 (142-424); Red Blood Count 4.77 M/mm3 (4.60-6.20); Red Cell Distribution Width 16.7 % (11.5-17.5); White Blood Count 6.5 K/mm3 (4.8-10.8)
[2024-08-14 14:34] LABS: Albumin Level 4.8 g/dl (3.5-5.0); Chloride 98 mmol/L (98-107)
[2024-08-14 14:35] LABS: Potassium 5.4 mmoL/L (3.5-5.1); Sodium 136 mmol/L (136-145)
[2024-08-14 14:37] LABS: Alanine Aminotransferase 297 U/L (12-78); Albumin/Globulin Ratio 1.3 (1.1-1.8); Alkaline Phosphatase 174 U/L (38-126); Anion Gap 22.4 mEq/L (5-15); Bilirubin,Total 2.2 mg/dl (0.2-1.3); Blood Urea Nitrogen 42 mg/dl (9-20); Carbon Dioxide 21 mmol/L (22.0-30.0); Creatinine Clearance Estimated 27 mL/min (50-200); Estimated Glomerular Filt Rate 34 ml/min (>60); GFR (African American) 41 ML/MIN (>60); Globulin 3.7 g/dL (1.3-3.2); Glucose 138 mg/dl (74-100); Lipase 87 U/L (23-300); Total Protein,Serum 8.5 g/dl (6.3-8.2)
[2024-08-14 14:38] LABS: Calcium 9.8 mg/dl (8.4-10.2); Magnesium 2.5 mg/dl (1.6-2.3)
[2024-08-14 14:39] LABS: INR 1.59 (0.9-1.1)
[2024-08-14] MEDS: ACETAMINOPHEN 1,000MG/100ML VIAL 1000 MG IV (14:39)
[2024-08-14] MEDS: 0.9 % SODIUM CHLORIDE 1000ML 1,000 ML 999 ML IV (14:40)
[2024-08-14] MEDS: ONDANSETRON 4MG/2ML VIAL 4 MG IV (14:40)
[2024-08-14 14:44] LABS: Aspartate Amino Transferase 263 U/L (17-59)
[2024-08-14 14:50] LABS: Troponin I 0.03 ng/ml (0.00-0.034)
[2024-08-14 14:55] LABS: Lactic Acid 4.9 mmol/L (0.7-2.1)
--- NOTE | 2024-08-14 15:15 | CT_ITS ---
FINAL REPORT TECHNIQUE: Pre-and postcontrast images of the abdomen through the pelvis were performed by computed tomography. Extensive 3-D reconstruction images were performed. A CTA was performed. This study was performed with techniques to keep radiation doses as low as reasonably achievable (ALARA). Individualized dose reduction techniques using automated exposure control or adjustment of mA and/or kV according to the patient's size were employed. CLINICAL HISTORY: Nausea vomiting diarrhea abdominal pain COMPARISON: CT pelvis 03/02/2024 FINDINGS: ABDOMEN: There are moderate left and small to moderate right pleural effusions with overlying consolidation. There is suboptimal opacification of the abdominal arterial systems. There is extensive reflux into the hepatic vessels. The liver is homogeneous. The gallbladder is partially contracted. The spleen, pancreas, adrenals, and kidneys are unremarkable. The abdominal aorta measures approximately 3.2 x 2.8 cm. There are dense vascular calcifications within the iliac vessels. PELVIS: The appendix is unremarkable. The urinary bladder is incompletely distended. There are moderate vascular calcifications in the iliac vessels and common femoral arteries. There is no significant free fluid or adenopathy. The bony pelvis is unremarkable. CTA: The mesenteric vessels and renal arteries can not be evaluated due to timing of the contrast bolus. IMPRESSION: Suboptimal timing of the contrast bolus, can not evaluate the arterial system. Bilateral pleural effusions with overlying consolidation. Reviewed, Interpreted and Dictated by Marcus Quiroz MD Transcribed by Lydia Wei Authenticated and [facility]
[2024-08-14 15:20] LABS: Procalcitonin 0.189 ng/mL (0.0-2.0)
[2024-08-14 15:33] LABS: Acetone, Serum (Rapid) None Detected (None Detect)
[2024-08-14] MEDS: IOPAMIDOL-370 (76%);100ML BOTTLE 80 ML IV (16:11)
[2024-08-14] MEDS: SODIUM CHLORIDE 0.9% 10ML SYR (RAD ONLY) 10 ML IV (16:11)
[2024-08-14] MEDS: 0.9 % SODIUM CHLORIDE 50 ML VIAL IV (16:11)
--- NOTE | 2024-08-14 16:57 | XR_ITS ---
PROCEDURE INFORMATION: Exam: XR Chest Exam date and time: 08/14/2024 5:00 PM Age: 84 years old Clinical indication: Pain; Chest pressure; Additional info: Pleural effusions on CT TECHNIQUE: Imaging protocol: Radiologic exam of the chest. Views: 1 view. COMPARISON: CT ANGIO CHEST 08/05/2024 11:28 AM FINDINGS: Lungs: Stable calcified pleural plaque of the left lung base. Pleural spaces: Small right and [id number] left pleural effusions. Heart/Mediastinum: No evidence of mediastinal widening or cardiac silhouette enlargement; the mediastinum and heart appear within normal limits for contour and size. Bones/joints: No evidence of acute osseous abnormalities within the visualized portions of the thoracic spine and ribs. Osseous structures appear appropriate for patient age. The patient is status post median sternotomy. IMPRESSION: Small right and [id number] left pleural effusions.
--- NOTE | 2024-08-14 17:01 | PC.NURSE ---
Rad in room for portable x-ray
--- NOTE | 2024-08-14 17:37 | PC.NURSE ---
called [facility] for transfer waiting for hospitalist to call back
--- NOTE | 2024-08-14 18:00 | PC.NURSE ---
Attempted to call report to [facility], nurse to call me back.
[2024-08-14 18:02] LABS: Troponin I 0.04 ng/ml (0.00-0.034)
[2024-08-14 18:29] LABS: Reflex Lactic Add Lactic Reflex
--- NOTE | 2024-08-14 18:38 | PC.NURSE ---
Report called to JHONATAN Land at [facility].
--- NOTE | 2024-08-14 18:44 | PC.NURSE ---
EMS notified pt is ready for tx to [place]
--- NOTE | 2024-08-14 18:50 | PC.NURSE ---
I spoke with SILVIO MARIANO who verified amiodarone bolus and
[2024-08-14] MEDS: AMIODARONE HCL 150 MG in DEXTROSE 5 % IN WATER 100 ML 618 MG IV (18:58)
[2024-08-14 19:09] LABS: Lactic Acid Follow Up (RFLX 1) 4.4 mmol/L (0.7-2.1)
[2024-08-14] MEDS: AMIODARONE HCL 900 MG in DEXTROSE 5 % IN WATER 500 ML 34.53 MG IV (19:14)
--- NOTE | 2024-08-14 19:20 | PC.NURSE ---
EMS renotified for transfer
--- NOTE | 2024-08-14 19:23 | PC.NURSE ---
EMS notified ER that they are waiting for next shift and will be here maryse.
[2024-08-14 19:29] LABS: Appearance,Urine CLEAR (Clear); Blood, Urine TRACE-I (Negative); Color,Urine YELLOW (Yellow); Glucose,Urine (UA) 1+ (Negative); Ketones,Urine Negative (Negative); Leukocyte Esterase,Urine Negative (Negative); Microscopic, Urine URINE MICROSCOPIC (MICROSCOPIC); Nitrate,Urine Negative (Negative); Protein,Urine TRACE (Negative); Specific Gravity, Urine 1.025 (1.005-1.030)
[2024-08-14 19:33] LABS: Bilirubin,Urine Negative (Negative)
--- NOTE | 2024-08-14 19:41 | ECG_ITS ---
APPROVED REPORT Exam: Resting ECG HR:96 bpm ECG Measurements Heart Rate 96 AXES QRSd 126 QRS 87 QT 395 T 225 QTc 449 Conclusion ATRIAL FIBRILLATION MODERATE INTRAVENTRICULAR CONDUCTION DELAY [110+ ms QRS DURATION] ST DEVIATION AND MODERATE T-WAVE ABNORMALITY, CONSIDER LATERAL ISCHEMIA [-0.1+ mV T-WAVE IN I/aVL/V5/V6] ST DEVIATION AND MODERATE T-WAVE ABNORMALITY, CONSIDER INFERIOR ISCHEMIA [-0.1+ mV T-WAVE IN II/aVF] ABNORMAL ECG UNCONFIRMED REPORT Electronically signed by : Anthony Nuñez, 08/14/2024 22:51:50
--- NOTE | 2024-08-14 19:51 | PC.NURSE ---
[facility] here for transport
[2024-08-14 19:57] LABS: Bacteria,Urine 1+ /lpf; Mucus,Urine 3+ /lpf; WBC,Urine Occasional #/hpf (0-3)
[2024-08-14 20:37] LABS: Reflex Lactic (2 hrs) Add Lactic Reflex
== END 2024-08-14 20:14 | disposition short-term general hospital (02) ==
PROVIDERS: Physician Assistant; Emergency Provider Emergency Medicine; PCP Family Medicine
DX: N17.9 Acute kidney failure, unspecified (principal); I50.9 Heart failure, unspecified; I48.91 Unspecified atrial fibrillation; I49.5 Sick sinus syndrome; R11.2 Nausea with vomiting, unspecified; R53.1 Weakness; R19.7 Diarrhea, unspecified
CPT/HCPCS: 71045; 74174; 80053; 81001; 82009; 83605; 83690; 83735; 84145; 84484; 85025; 85610; 93005; 96361; 96374; 96375; 99285; J0131; J0282; J2405; J7030; J7060; Q9967